=== PATIENT | male | born 1950 | race Caucasian/White ===

== ENCOUNTER → 2023-09-20 07:53 | Outpatient (REF) | payer MEDICARE, SELFPAY | LOC: HWLAB 07:53 | PROVIDERS: ATTENDING PHYSICIAN Family Medicine | DX: R19.7 Diarrhea, unspecified (principal); R10.9 Unspecified abdominal pain | CPT/HCPCS: 87045; 87046; 87324; 87328; 87329; 87427; 87449 ==

== ENCOUNTER → 2024-06-25 07:33 | Outpatient (REF) | payer MEDICARE, SELFPAY ==
[2024-06-25 10:21] LABS: % Basophils 0.9 % (0-2); % Eosinophils 0.4 % (0-6); % Immature Granulocytes 0.2 % (0-0.5); % Lymphocytes 32.7 % (20.5-51.1); % Monocytes 14.1 % (1.7-9.3); % Neutrophils 51.7 % (42.2-75.2); Absolute Lymphocytes 1.5 10^3/uL (1.2-3.4); Absolute Monocytes 0.6 10^3/uL (0.1-0.6); Absolute Neutrophils 2.3 10^3/uL (1.4-6.5); Hematocrit 50.3 % (39.0-52.0); Hemoglobin 16.7 g/dL (13.0-18.0); Mean Corp Hgb Conc. 33.2 g/dL (33.0-37.0); Mean Corpuscular Hgb 32.9 pg (27.0-31.0); Mean Corpuscular Volume 99.2 fL (80.0-94.0); Mean Platelet Volume 13.1 fL (7.4-10.4); Nucleated Red Blood Cells % 0 % (-); Platelet Count 68 10^3/uL (130-400); Red Blood Cell Count 5.07 10^6/uL (4.70-6.10); White Blood Cell Count 4.5 10^3/uL (4.8-10.8)
[2024-06-25 16:13] LABS: ALT (SGPT) 33 U/L (0-50); AST (SGOT) 52 U/L (17-59); Albumin 3.7 g/dl (3.5-5.0); Alkaline Phosphatase 134 U/L (38-126); Blood Urea Nitrogen 22 mg/dl (9-20); Calcium 8.6 mg/dl (8.4-10.2); Carbon Dioxide 28 mmol/L (22-30); Chloride 103 mmol/L (98-107); Glucose 79 mg/dl (70-99); HDL Cholesterol 75 mg/dl; LDL Cholesterol, Calculated 50 mg/dl; Potassium 4.3 mmol/L (3.5-5.1); Sodium 139 mmol/L (135-145); Total Cholesterol 139 mg/dl (50-199); Total Protein 7.3 g/dl (6.3-8.2); Triglyceride 71 mg/dl (10-149); Very Low Density Lipoprotein 14 mg/dl (0-30); eGFR > 60.00
== END ==
LOC: HWLAB 07:33
PROVIDERS: ATTENDING PHYSICIAN Internal Medicine Cardiovascular Disease; FAMILY PHYSICIAN Family Medicine
DX: I48.0 Paroxysmal atrial fibrillation (principal)
CPT/HCPCS: 36415; 80053; 80061; 85025

== ENCOUNTER 2024-07-22 18:23 | Inpatient (IN) | payer MEDICARE, SELFPAY ==
[2024-07-22] VITALS (40 sets, daily range): BP systolic 99–127; BP diastolic 69–96; BMI 20.1
[2024-07-22 14:10] LABS: Hematocrit 49.4 % (39.0-52.0); Hemoglobin 16.7 g/dL (13.0-18.0); Mean Corp Hgb Conc. 33.8 g/dL (33.0-37.0); Mean Corpuscular Hgb 31.6 pg (27.0-31.0); Mean Corpuscular Volume 93.6 fL (80.0-94.0); Mean Platelet Volume 12.1 fL (7.4-10.4); Platelet Count 93 10^3/uL (130-400); Red Blood Cell Count 5.28 10^6/uL (4.70-6.10); White Blood Cell Count 5.1 10^3/uL (4.8-10.8)
[2024-07-22 14:21] LABS: % Basophils 0.4 % (0-2); % Immature Granulocytes 0.4 % (0-0.5); % Lymphocytes 13.8 % (20.5-51.1); % Monocytes 14.2 % (1.7-9.3); % Neutrophils 71.2 % (42.2-75.2); Absolute Lymphocytes 0.7 10^3/uL (1.2-3.4); Absolute Monocytes 0.7 10^3/uL (0.1-0.6); Absolute Neutrophils 3.7 10^3/uL (1.4-6.5); Nucleated Red Blood Cells % 0 % (-)
[2024-07-22 14:22] LABS: ALT (SGPT) 33 U/L (0-50); AST (SGOT) 59 U/L (17-59); Albumin 3.4 g/dl (3.5-5.0); Alkaline Phosphatase 140 U/L (38-126); Blood Urea Nitrogen 44 mg/dl (9-20); Carbon Dioxide 21 mmol/L (22-30); Chloride 101 mmol/L (98-107); Glucose 102 mg/dl (70-99); INR 1.89; PT 21.9 Sec (11.4-14.6); Potassium 5.4 mmol/L (3.5-5.1); Sodium 131 mmol/L (135-145); Total Bilirubin 1.1 mg/dl (0.2-1.3); Total Protein 7.4 g/dl (6.3-8.2); eGFR > 60.00
--- NOTE | 2024-07-22 14:46 | EDRN ---
the pt was brought back to ED Bed #8 from the waiting room, the pt was placed on the monitor and was found to be tacycardic in the 120-150's, the pts Sp02 was 67% on RA, this RN placed the pt on 6L NC then a non rebreather and notified Dr. Watkins who
came to the pts bedside
[2024-07-22] MEDS: CARDIZEM 5 MG IV (15:04)
--- NOTE | 2024-07-22 15:04 | ED.GENMED ---
History of Present Illness
General
Chief Complaint: Weakness
Source: patient and family
Time Seen by Provider: 07/22/24 14:59
History of Present Illness
History of Present Illness:
This patient is a 73-year-old male presents emergency department with progressive symptoms over the last 4 to 6 weeks. He is generally noncompliant with seeing his doctor, and specifically has not seen a doctor regarding his lupus in a very long
time. He describes increasing fatigue, sleeping all day, anorexia and nonbloody diarrhea. He denies fever or chills but does note a productive cough. He denies chest pain or pressure, palpitations. He has had increasing lower extremity edema for
about a month. He denies headache, dizziness, sore throat, rhinorrhea, abdominal pain, or other complaints. Daughter states she wanted to bring him to the hospital yesterday but he declined.
Past History
Past History
ED Past Medical History: Arrthythmia (afib), CAD, HTN, Hypercholesterolemia, Valvular disease (as) and Other (lupus)
ED Past Surgical History: Other
Social History
Tobacco: Other (Cigars)
Alcohol: None
Drug: None and Other
Living: alone
Family History
Family History: Other
Phy Exam
Physical Exam
Physical Exam:
GENERAL: Alert , in mild respiratory distress distress
EYE: pupils equal and reactive, conjunctiva pink
NECK: Supple, no significant adenopathy.
ENT: o/p clr, mm slightly dry
CARDIAC: Irregularly irregular
LUNGS: Noted breath sounds bilaterally, moderate respiratory distress, no wheezes/rales/rhonchi, slightly decreased breath sounds on the right
ABDOMEN: Soft, without focal tenderness, no r/g, no cvat
NEUROLOGICAL: Alert and oriented, no focal neuro deficits
SKIN: Warm and dry, skin intact.
MUSCULOSKELETAL: 2+ bilateral lower extremity edema, well perfused.
PSYCH: Normal and appropriate interaction.
Course
Orders/Labs/Results
Orders:
Orders
07/22/24 13:53
Complete Blood Count/With Diff Urgent
Comprehensive Metabolic Panel Urgent
Lyme Progressive Urgent
PT/INR [Prothrombin Time] Urgent
07/22/24 14:45
EKG [Electrocardiogram (*1)] Urgent
Reason for Study: Shortness of Breath
EKG- Treatment ONCE
07/22/24 14:48
Diltiazem HCl [Cardizem] 25 mg .ROUTE .STK-MED ONE
Nicardipine 40 mg/200 ml [Cardene] 40 mg in 200 ml .ROUTE .STK-MED
07/22/24 14:55
Diltiazem 125 mg/125 ml Nss [Cardizem] 125 mg in 125 ml .ROUTE .STK-MED
07/22/24 15:01
Diltiazem 125 mg/125 ml Nss [Cardizem] 125 mg in 125 ml IV NOW
Initial dose in mg/hr, then titrate:: 5
Titrate to keep:: Heart rate 80-100 bpm
Titrate by mg/hr:: 5 mg/hr
Frequency of titrations (minutes):: 15
Maximum dose in mg/hr:: 15
Diltiazem HCl [Cardizem] 5 mg IV NOW STA
07/22/24 15:04
Cardiac Monitoring- Treatment ONCE
CR Chest Portable - 1 View Urgent
Comment:
Reason For Exam: hypoxia, hx lupus
Reason Study Needs to be Portable: Patient Unstable
07/22/24 15:11
Dexamethasone Sod Phosphate [Decadron] 10 mg IV NOW STA
07/22/24 15:30
ABG [Arterial Blood Gas] Urgent
%Oxygen/Room Air: 87% on 6L NC
07/22/24 15:35
Magnesium Urgent
NT-proBNP Urgent
Troponin I Urgent
07/22/24 15:39
Furosemide [Lasix] 40 mg IV NOW STA
07/22/24 16:35
Aspirin 325 mg PO NOW STA
Metoprolol [Lopressor] 5 mg IV NOW STA
07/22/24 16:48
Aspirin 325 mg .ROUTE .STK-MED ONE
07/22/24 17:26
Admit/Transfer Patient As Directed
Co-Sign Provider:
Level of Care: Inpatient admission
Assign to:: IMU- Intermediate Care
Physician / Group: Dario
Diagnosis: Hypoxia, CHF, Pleural Effusion, Atrial Flutter
Reason for Hospitalization: high flow, Cardizem drip
Expected length of stay greater than two midnights?: Yes
ELOS- Estimated Length of Stay in days: 3
I certify the patient meets the requirements for IP care: Yes
07/22/24 17:27
PRN Pain Medication Management As Directed
May give lesser potent ordered pain med per pt: Yes
preference::
Protocol:: Medication orders for pain may be administered in a
manner that supports deferring to patient preference
when the pt is:
- Requesting an ordered lesser potent pain medication.
Least to most potent pain medications are defined
as: acetaminophen < NSAID < tramadol < opioids
(morphine, oxycodone, hydromorphone).
- Requesting a lesser dose of the same medication IF
ORDERED.
- Requesting a less intrusive route of administration
if both routes are prescribed by the provider (PO <
IV).
07/22/24 17:36
Amiodarone [Cordarone] 150 mg Dextrose 5%/Water 100 ml [D5w] 100 ml IV NOW
07/22/24 17:38
Add On- LAB Urgent
Tests Added?: magnesium
07/22/24 17:45
Amiodarone [Cordarone] 900 mg DEXTROSE 5% PVC-free BAG [D5W PVC-free BAG] 500 ml IV PER PROTOCOL
Initial Dose in mg/min:: 1
Duration of initial dose (hours):: 6
Subsequent dose in mg/min:: 0.5
Duration of subsequent dose (hours):: 18
Maximum dose in mg/min:: 1
Hold and notify provider if:: Heart rate < 60 BPM or SBP < 90 mmHg or MAP < 60 mmHg
07/22/24 21:49
Troponin I Q6H
07/23/24 00:08
Warfarin [Coumadin] 1 mg PO QPM
07/23/24 00:08
CARDIOLOGY CONSULT Routine
Consulting Provider: Corwin Britt
Was physician already notified: Yes
HF DIETARY CONSULT Routine
HF EDUCATOR CONSULT Routine
Comment:
IRAD CONSULT Routine
Consulting Provider: Joaquín Chang
Was physician already notified: Yes
Reason for Consult/Procedure: Left Thoracentesis
Acknowledgement that appropriate orders are entered: Yes
Activity As Directed
Activity Level: Bedrest
Intake/ Output As Directed
Frequency: Per unit guidelines
Patient Education As Directed
Type: CHF folder
Comment: give on admission. Document in Interdisciplinary Education record
Sleep Apnea Assessment by RN As Directed
Comment:
Physician Instructions:
Vital Signs As Directed
Frequency: Other
Additional Instructions:: Q12 or per unit guidelines if more frequent.
Weight As Directed
Frequency: Daily
Type of Scale: Standing Scale
Comment: Daily morning weight. If unable to stand, use balanced bed scale.
Weight As Directed
Frequency: Once
Type of Scale: Standing Scale
Comment: Upon Admission. If unable to stand, use balanced bed scale.
IRAD Cytology Routine
Date Specimen was Collected: 07/23/24
Time Specimen was Collected: 09:10
Source: Pleural Fluid, Left
Clinical Impression: CHF
History of Malignancy: none
History of Radiation / Chemotherapy: none
Submitting Physician: marta Qureshi PA-C
O2 Therapy [RESP] Routine
Titrate/Wean O2 to maintain O2 sat greater than (%): 90
Pulse Ox/cont/shift [RESP] Routine
Quantity: 1
Special Instructions: Daily pulse oximetry at rest. If greater than 92% at rest also obtain pulse oximetry
while ambulating as tolerated.
07/23/24 04:19
Basic Metabolic Panel IN AM
Cardiovascular Evaluation IN AM
Complete Blood Count/No Diff IN AM
LDH IN AM
Magnesium IN AM
Prothrombin Time IN AM
TSH Reflex To Free T4 IN AM
Total Protein IN AM
Troponin I Q6H
07/23/24 06:00
Echo 2D MMode Color/Doppler IN AM
Reason for Study: heart failure
Cholesterol Lowering
At Your Request: Full Participation
Cholesterol Lowering: Sodium, 2 Gram
07/23/24 08:00
Furosemide [Lasix] 40 mg IV DAILY
Metoprolol Xl [Toprol Xl] 100 mg PO DAILY
07/23/24 09:14
Body Fluid Amylase Routine
Fluid Source: Pleural
Date Specimen was Collected: 07/23/24
Time Specimen was Collected: 09:10
Body Fluid Cell Count Routine
What is the Body Fluid: pleural fluid
Date Specimen was Collected: 07/23/24
Time Specimen was Collected: 09:10
Comment: post procedure
Body Fluid Glucose Routine
Fluid Source: Pleural
Date Specimen was Collected: 07/23/24
Time Specimen was Collected: 09:10
Body Fluid LDH Routine
Fluid Source: Pleural
Date Specimen was Collected: 07/23/24
Time Specimen was Collected: 09:10
Body Fluid Protein Routine
Fluid Source: Pleural
Date Specimen was Collected: 07/23/24
Time Specimen was Collected: 09:10
Body Fluid Triglycerides Routine
Fluid Source: Pleural
Date Specimen was Collected: 07/23/24
Time Specimen was Collected: 09:10
Body Fluid pH Routine
Fluid Source: Pleural
Date Specimen was Collected: 07/23/24
Time Specimen was Collected: 09:10
Fluid Culture with Gram Stain Routine
BETTE Source: Pleural Fluid
Specimen Description:
Date Specimen was Collected: 07/23/24
Time Specimen was Collected: 09:10
Comment: post procedure
07/24/24 06:04
Prothrombin Time IN AM
07/27/24 06:05
Prothrombin Time IN AM
Abnormal Lab Results
07/22/24 07/22/24 07/22/24
13:53 15:30 15:35
MCH 31.6 H pg
(27.0-31.0)
Plt Count 93 L 10^3/uL
(130-400)
MPV 12.1 H fL
(7.4-10.4)
Absolute Lymphs (auto) 0.7 L 10^3/uL
(1.2-3.4)
Absolute Monos (auto) 0.7 H 10^3/uL
(0.1-0.6)
Lymphocytes % 13.8 L %
(20.5-51.1)
Monocytes % 14.2 H %
(1.7-9.3)
PT 21.9 H Sec
(11.4-14.6)
ABG O2 Sat (Measured) 98.2 H %
(94-98)
Sodium 131 L mmol/L
(135-145)
Potassium 5.4 H mmol/L
(3.5-5.1)
Carbon Dioxide 21 L mmol/L
(22-30)
BUN 44 H mg/dl
(9-20)
Glucose 102 H mg/dl
(70-99)
Alkaline Phosphatase 140 H U/L
(38-126)
Troponin I 0.099 H* ng/ml
Albumin 3.4 L g/dl
(3.5-5.0)
07/22/24 13:53
07/22/24 13:53
Vital Signs
Initial and Last Documented VS:
Initial Vital Signs
Temp Pulse Resp BP Pulse Ox
97.7 F 56 18 121/69 95
07/22/24 13:39 07/22/24 13:39 07/22/24 13:39 07/22/24 13:39 07/22/24 13:39
Last Documented Vital Signs
Temp Pulse Resp BP Pulse Ox
97.9 F 64 16 102/70 96
07/30/24 15:57 07/30/24 16:12 07/30/24 15:57 07/30/24 16:12 07/30/24 15:57
*Critical Care Note
Total Time (30-74mins, 75-104mins- exclusive of procedures): Not Applicable
Update Note
Update Note:
Patient presents to the Emergency Department with ____fatigue, anorexia, diarrhea, dyspnea
Number and Complexity of Problems Addressed at the Encounter
� Chronic conditions affecting care:
� Acute Exacerbation and/or Progression of Chronic Illness:
� Differential Diagnosis includes: But not limited to A-fib, heart failure, ACS, carcinoma, etc. etc.
Amount and/or Complexity of Data to be Reviewed and Analyzed
� I performed an independent evaluation of and my interpretation is:
EKG: Read by me, a flutter with RVR, no acute ischemia
CT:
Xrays: New moderate left pleural effusion, mild right pleural effusion, mild pulmonary edema
Laboratory Studies: Reviewed by me, mild thrombocytopenia which is relatively unchanged, prerenal azotemia with normal kidney function, mild hyperkalemia
Other:
� Review of other/old records reveals: Patient was in the hospital December 2014, had an aortic valve replacement at that time. Noted to have a history of heart failure, hypertension, A-fib, alcoholic cardiomyopathy with an EF of
40 to 45%
� Clinical information was obtained by an independent historian: Daughter who is bedside
� Prescriptions/Medications Considered but not given:
� Further testing considered but not performed: Consideration for CT to rule out PE, patient is not fully anticoagulated however symptoms are overwhelmingly convincingly related to heart failure/A-fib
Risk of Complications and/or Morbidity or Mortality of Patient Management
� Social determinants of health affecting care:
� Discussion with other providers (PCP, Hospitalists, Consultants, etc):
� Escalation of care including admission/observation vs risk of discharge considered: Several reassessments of patient, he is resting comfortably, lucid, awake and alert, no respiratory distress on high flow, pulse ox 97%. He
has been updated regarding our findings here and plan of care. [place] text to hospitalist for admission. Of ntoe on cardizem gtt, 15 mg/hr, still hr 120's...will give dose lopressor.
ED Attending Note
-
Portions of this chart may have been created with voice recognition software.� Occasional wrong word or��sound alike� substitutions may have occurred due to the inherent limitations of voice recognition software.
Discharge Plan
Departure
Patient Disposition: Admit
Date of Disposition: 07/22/24
Time of Disposition: 16:39
Presentation/result/management discussed w/ accepting MD/DO: Hospitalist
Discharge Problem:
Atrial fibrillation by electrocardiography, Heart failure, Pleural effusion, Hypoxia
Interventions
Interventions:
*Risk Screen - Suicide Last Done: 07/22/24 13:39
*General Assessment Last Done: 07/22/24 13:39
*Neglect/Abuse Screening Last Done: 07/22/24 15:10
*ED- Fall Risk Assessment Last Done: 07/22/24 15:10
*ED COVID-19 Vaccine History Last Done: 07/22/24 13:39
*Nursing Disposition Last Done: 07/23/24 03:19
ED- Cardiac Assessment Last Done: 07/23/24 00:00
ED- Neurological Assessment Last Done: 07/22/24 19:39
ED- Pulmonary Assessment Last Done: 07/22/24 19:39
Discharge Date and Time
Discharge Date/Time: 07/23/24 03:20
[2024-07-22] MEDS: CARDIZEM 125 IV (15:05)
--- NOTE | 2024-07-22 15:09 | EDRN ---
respiratory currently at the pts bedside
--- NOTE | 2024-07-22 15:16 | EDRN ---
respiratory currently at the pts bedside
[2024-07-22] MEDS: DECADRON 10 MG IV (15:31)
[2024-07-22 15:40] LABS: B.E. -1.3 mmol/L; HCO3 22.8 mmol/L (21-28); O2 Saturation % 98.2 % (94-98); PCO2 36 mmHg (35-48); PO2 90 mmHg (83-108); pH 7.41 (7.35-7.45)
[2024-07-22 15:57] LABS: Magnesium 2.1 mg/dl (1.6-2.3)
[2024-07-22 16:07] LABS: NT-proBNP 8150 pg/ml
[2024-07-22] MEDS: LASIX 40 MG IV (16:22)
[2024-07-22 16:33] LABS: Troponin I 0.099 ng/ml
[2024-07-22] MEDS: ASPIRIN 325 MG PO (16:49)
[2024-07-22] MEDS: LOPRESSOR 5 MG IV (16:49)
--- NOTE | 2024-07-22 16:55 | HPS.HSE ---
Family Physician
-
Family Physician: Corwin Garay
Chief Complaint
-
Shortness of Breath and Lower Extremity Edema
History of Present Illness
Patient is a 73 y/o male past medical history of s/p AVR, CHF, A-fib, HTN who presents with increasing lower extremity edema and shortness of breath. Patient reports ankle swelling since last summer, but reports over the last few weeks swelling
has crept to the knees. He reports increasing dyspnea on exertion. He reports very poor appetite, weakness and fatigue. He denies chest pain or palpitations. He does not weight himself on a regular basis. He denies fevers.
Medical History
Past Medical History
Past Medical History: Reports Other
Additional Past Medical History:
Congestive Heart Failure
Cardiomegaly
Aortic Stenosis s/p Bioprosthetic Aortic Valve Replacement
Paroxysmal Atrial Fibrillation
Essential Hypertension
Hyperlipidemia
Lupus
Anxiety
Past Surgical History: Reports Other
Additional Past Surgical History:
Aortic Valve Replacement
Bilateral Knee Arthroscopy
Colon Resection
Social History
Tobacco: Smoker (Quit cigarettes over 20 years ago. Smoking 1-2 cigars nightly since quitting cigarettes)
Alcohol: Daily (~2 oz bourbon nightly )
Family History
Family History: Not pertinent
Allergies / Home Medications
Allergies reflects when Allergies were last updated in [facility].
Home Medications with original date entered in [facility]
Allergy/Medication List:
Allergies
Allergy/AdvReac Type Severity Reaction Status Date / Time
gluten Allergy CONSTIPATIO Verified 07/22/24 17:40
N
milk [Milk] Allergy Gas Verified 07/22/24 17:40
rivaroxaban [From Xarelto] Allergy excessive Verified 07/22/24 13:44
bleeding,
'funny
feeling'
wheat Allergy CONSTIPATIO Verified 07/22/24 17:40
N
Home Medications
metoprolol succinate 100 mg tablet,extended release 24 hr 100 mg PO DAILY 11/24/14
amlodipine 5 mg tablet (Norvasc) 5 mg PO BID 07/22/24
lisinopril 10 mg tablet 10 mg PO QPM 07/22/24
lisinopril 5 mg tablet 5 mg PO DAILY 07/22/24
warfarin 4 mg tablet (Jantoven) 1 mg PO QPM 07/22/24
Review of Systems
-
A 12 point ROS was completed and negative except as noted: Yes
Constitutional: Denies Fever or Chills
Respiratory: Reports Trouble Breathing
Cardiac: Denies Chest Pain or Palpitations
Physical Exam
Vital Signs
Vital Signs
Temp Pulse Resp BP Pulse Ox
97.7 F 126 28 123/90 96
07/22/24 13:39 07/22/24 16:49 07/22/24 15:02 07/22/24 16:49 07/22/24 15:38
Physical Exam
General: Comfortable and Conversant
HEENT: Anicteric, Moist mucous membranes and Oxygen (High Flow)
Respiratory: Rales (Scattered) and Decreased Breath Sounds (Bilateral Bases)
Cardiac: S1/S2, Irregular Rhythm and Tachycardia
GI: Soft and Non Tender
Rectal: Deferred by Provider
Genito-urinary: Clear Urine
Musculoskeletal: No Clubbing, No Cyanosis and Other (+3 pitting edema bilateral lower extremity; +1 edema left hand)
Skin: Warm and Dry
Neuro: Awake, Alert, Oriented and Nonfocal/grossly intact
Psych: Calm
Laboratory Results
-
07/22/24 13:53
07/22/24 13:53
Laboratory Results
PT 21.9 Sec (11.4-14.6) H 07/22/24 13:53
INR 1.89 07/22/24 13:53
pH 7.41 (7.35-7.45) 07/22/24 15:30
pCO2 36 mmHg (35-48) 07/22/24 15:30
pO2 90 mmHg (83-108) 07/22/24 15:30
HCO3 22.8 mmol/L (21-28) 07/22/24 15:30
Total Bilirubin 1.1 mg/dl (0.2-1.3) 07/22/24 13:53
AST 59 U/L (17-59) 07/22/24 13:53
ALT 33 U/L (0-50) 07/22/24 13:53
Alkaline Phosphatase 140 U/L (38-126) H 07/22/24 13:53
Troponin I 0.099 ng/ml H* 07/22/24 15:35
Data Reviewed
-
Diagnostic Radiology: Report Reviewed by me
Lab Data: Labs Reviewed by me
Impression/Plan
-
Acute Hypoxic Respiratory Failure secondary to CHF and Left Pleural Effusion
-Admit to IMU
-Continue high flow oxygen
Acute Heart Failure, unknown type
-Echo 2018: LV EF 55-60%
-Consult Cardiology
-Check Echo
-Continue Lasix 40mg IV Daily
-Monitor Is&Os and Daily Weights
Atrial Fibrillation / Flutter with Rapid Ventricular Response
-Rate remains in the 120s despite max Cardizem drip
-Start Amiodarone drip
-Continue Cardizem drip
-Continue metoprolol
-Continue Coumadin for anticoagulation
Elevated Troponin, likely non-ischemic myocardial injury due to hypoxia, heart failure and tachycardia
-Continue to trend
Left Pleural Effusion
-Consult IR for thoracentesis
Hyperkalemia
-Suspect will improve with diuretics
-Hold lisinopril
-Recheck in AM
Essential Hypertension
-Continue Metoprolol
-Hold lisinopril and amlodipine
Hx Lupus
DVT proph: Coumadin
Code Status: Limited DNR - No defibrillation or chest compressions - OK for intubation only
--- NOTE | 2024-07-22 18:05 | W.PN.UPDATE ---
Update Note
Progress Note Update
This is an addendum to the H&P written by Josette West on 07/22/2024. Patient seen and examined independently with PA.
73-year-old male past medical history of aortic stenosis status post AVR, heart failure, A-fib on Coumadin, hypertension, lupus, presenting with shortness of breath with exertion, lower extremity edema, fatigue weakness and poor appetite. No cough
or chest pain or fever.
Heart rate 120s. Patient requiring high flow oxygen.
EKG shows atrial flutter with variable AV block. Cardiac BNP of 8000. Troponin of 0.099. Chest x-ray shows moderate left pleural effusion small right pleural effusion.
Presentation consistent with acute CHF exacerbation likely secondary to atrial flutter with RVR.
40 IV Lasix daily. Patient on Cardizem drip. Still heart rate in 120s. Amiodarone drip to be started. Cardiology following. Hold amlodipine and lisinopril.
[2024-07-22] MEDS: CORDARONE 103 MG IV (18:07)
[2024-07-22] MEDS: CORDARONE 518 MG IV (18:20)
[2024-07-22 22:27] LABS: Troponin I 0.084 ng/ml
[2024-07-23] VITALS (33 sets, daily range): BP systolic 85–125; BP diastolic 59–94; PULSE 118; O2SAT 92; BMI 25.8; BMI 20.1
[2024-07-23] MEDS: COUMADIN 1 MG PO (01:09)
[2024-07-23 04:39] LABS: INR 1.63; PT 19.6 Sec (11.4-14.6)
[2024-07-23 04:55] LABS: Blood Urea Nitrogen 50 mg/dl (9-20); Calcium 8.5 mg/dl (8.4-10.2); Carbon Dioxide 21 mmol/L (22-30); Chloride 102 mmol/L (98-107); Estimated Creatinine Clearance 54 ml/min; Glucose 190 mg/dl (70-99); HDL Cholesterol 64 mg/dl; LDH 352 U/L (120-246); LDL Cholesterol, Calculated 33 mg/dl; Potassium 5.5 mmol/L (3.5-5.1); Sodium 130 mmol/L (135-145); Total Cholesterol 115 mg/dl (50-199); Total Protein 6.7 g/dl (6.3-8.2); Triglyceride 90 mg/dl (10-149); Very Low Density Lipoprotein 18 mg/dl (0-30); eGFR > 60.00
[2024-07-23 04:58] LABS: Hematocrit 46.2 % (39.0-52.0); Hemoglobin 15.8 g/dL (13.0-18.0); Mean Corp Hgb Conc. 34.2 g/dL (33.0-37.0); Mean Corpuscular Hgb 31.3 pg (27.0-31.0); Mean Corpuscular Volume 91.5 fL (80.0-94.0); Mean Platelet Volume 12.8 fL (7.4-10.4); Platelet Count 95 10^3/uL (130-400); Red Blood Cell Count 5.05 10^6/uL (4.70-6.10); Red Cell Dist. Width 13.8 % (11.5-14.5)
[2024-07-23 05:14] LABS: Troponin I 0.069 ng/ml
[2024-07-23 05:21] LABS: TSH Reflex To Free T4 1.71 uIU/ml (0.47-4.68)
--- NOTE | 2024-07-23 05:37 | PTCARENOTE ---
Admitted pt overnight. aaox3. Remains on amio gtt, ST 120's. Remains maxed on HFNC 64I145% pulse ox anywhere from 80-95%. SOB at rest/exertion. Pt arguing with staff about pulse ox reading, when its reading low at 80% & pt SOB pt states 'its the
sticker, i can make it go to 96% no problem' education provided, pt not willing to listen. No skin issues. BP stable. Denies pain. Will continue to monitor.
--- NOTE | 2024-07-23 08:22 | CON.CAR ---
Addendum entered and electronically signed by Doyle Macias MD 07/23/24 17:57:
After discussion, cardioversion is on hold for tomorrow. Daughter informed.
Addendum entered and electronically signed by Doyle Macias MD 07/23/24 09:41:
73-year-old man admitted with heart failure, unknown EF (previously normal) and atrial flutter probably of 1 months duration. Family called our office 1 to 2 days ago inquiring about hospice.
PMH: PAF, alcohol use, bioprosthetic aortic valve 2014, history of ICD with extraction after 42 shocks for atrial fibrillation, previous amiodarone use, compression fractures, lupus, thrombocytopenia
Allergies: Xarelto
Current medications: IV furosemide, metoprolol ER 100 mg a day, warfarin, IV heparin just added, IV amiodarone
85/59, pulse 119, respiratory rate 21, afebrile, sats 94%, feels much better after thoracentesis for 1.2 L from left chest, blood pressure up to 120 systolic, heart rate still about 120, lungs are relatively clear, neck veins markedly elevated,
tachycardic regular, no obvious murmurs, abdomen benign, extremities 1+ to 2+ edema
Chest x-ray cardiomegaly left pleural effusion, heart failure
ECG: Atrial flutter with 2-1 conduction, Low voltage, septal OR
White count 2, platelets 95,000, hemoglobin 15.8, sodium 130, potassium 5.5, CO2 21, BUN and creatinine 50 and 1.1, troponin 0.069, proBNP 8150, TSH 1.71
Impression:
Atrial flutter with rapid ventricular response, likely 1+ month in duration
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
History of bioprosthetic AVR
Status post extraction of ICD for inappropriate discharges related to atrial fibrillation
Lupus
Thrombocytopenia
Hypertension
Alcohol and tobacco use
Plan:
He presents with heart failure, I suspect with a reduced EF related to tachycardia mediated cardiomyopathy. He has been in atrial flutter for what is likely greater than 1 month.
He appears much more comfortable after thoracentesis.
Will await echocardiography.
INR was 1.89, we will review prior INRs. INR has dropped further, we will start heparin. If last INR was therapeutic I would be willing to consider cardioversion without transesophageal echo.
Continue amiodarone for now, once sinus rhythm is reestablished we can determine whether PVI should be considered.
Would consider transition to Eliquis from warfarin.
Once stable we will maximize GDMT. Lisinopril currently on hold. He is written to get metoprolol ER. Will continue IV amiodarone and heparin for now. With addition of amiodarone we will need to watch INR closely dose warfarin daily.
Tentatively plan for cardioversion in a.m.
Original Note:
Consultation
Consultation Request
Date/Time Consultation Performed: 07/23/24
Requesting Provider: Dr. Logan
Performing Provider: Bisi Kim PA-C for Dr. BLAS Macias
Reason for Consultation: CHF, afib
Medical History
-
Chief Complaint: SOB, LE edema
History of Present Illness:
Patient is a 73-year-old male with past medical history of heart failure with reduced EF, nonischemic cardiomyopathy in setting of severe aortic stenosis/rapid afib and underwent ICD 2010. He had 42 ICD shocks for rapid atrial fibrillation and
subsequently underwent ICD system extraction in 2011. He underwent bioprosthetic AVR in 2014. He was diagnosed with lupus in 2016 and is chronically on Plaquenil. He has history of nosebleeds on Xarelto, and has been maintained on Coumadin
followed by [facility] Coumadin clinic. Patient presented to [facility] emergency room due to progressive shortness of breath and lower extremity edema noted over the last month. He also reports generalized fatigue. He is not on a water pill as
an outpatient. proBNP elevated at 8150 and chest x-ray with evidence of pleural effusions consistent with heart failure. On arrival is noted to be in atrial flutter with RVR. He states in past he has been able to tell when he is in afib, however
does not currently feel his typical symptoms. He was initially started on IV cardizem, however this was stopped due to hypotension and he was transitioned to IV amiodarone. Cardiology consulted for evaluation. Of note he has not gotten his
recommended echocardiogram the last 4 years as an outpatient.
PMH:
Paroxysmal atrial fibrillation
Chronic Coumadin therapy, managed by [facility] Coumadin clinic
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
History of heart failure with reduced EF
Status post ICD placement in 2010, with subsequent 42 ICD shocks for rapid A-fib status post ICD system extraction in 2011
History of bioprosthetic AVR in 2014
Lupus
Chronic thrombocytopenia
Hypertension
Past Medical History
Past Medical History: Other (in HPI)
Social History
Tobacco: Smoker (cigars)
Alcohol: Daily (1 bourbon daily)
Living: Alone
Employment: Retired
Family History
Family History: Other (OR in father, lupus in mother)
Allergies / Home Medications
Allergy/AdvReac Type Severity Reaction Status Date / Time
gluten Allergy CONSTIPATIO Verified 07/22/24 17:40
N
milk [Milk] Allergy Gas Verified 07/22/24 17:40
rivaroxaban [From Xarelto] Allergy excessive Verified 07/22/24 13:44
bleeding,
'funny
feeling'
wheat Allergy CONSTIPATIO Verified 07/22/24 17:40
N
�Medication �Instructions �Recorded �Confirmed �Type
metoprolol succinate 100 mg 100 mg PO DAILY 11/24/14 07/22/24 History
tablet,extended release 24 hr
amlodipine 5 mg tablet (Norvasc) 5 mg PO BID 07/22/24 07/22/24 History
lisinopril 10 mg tablet 10 mg PO QPM 07/22/24 07/22/24 History
lisinopril 5 mg tablet 5 mg PO DAILY 07/22/24 07/22/24 History
warfarin 4 mg tablet (Jantoven) 1 mg PO QPM 07/22/24 07/22/24 History
Review of Systems
-
History Source: Patient
All other systems: Negative unless noted
Physical Exam
Vital Signs
Temp Pulse Resp BP Pulse Ox
98.0 F 119 21 85/59 94
07/23/24 07:38 07/23/24 06:00 07/23/24 06:00 07/23/24 06:00 07/23/24 07:57
Lab Results
07/23/24 04:19
07/23/24 04:19
Troponin I 0.069 ng/ml H* 07/23/24 04:19
Dgd-O-Pecfmlgskfq Pept 8150 pg/ml 07/22/24 15:35
Physical Exam
General: No Apparent Distress and Other (on high flow O2)
HEENT: Normocephalic, Anicteric and Moist Mucous Membranes
Respiratory: Other (decreased BS B/L bases)
Cardiac: S1/S2 and Irregular Rhythm
GI: Soft, Non Tender, Non Distended and Normal Bowel Sounds
Musculoskeletal: No Clubbing, No Cyanosis and Edema (2+ of B/L LE)
Skin: Warm and Dry
Neuro: AO x 3
Impression / Plan
-
Primary Academic Hospitalist: Dr. Bella
Assessment:
Presentation with SOB, LE edema
Acute hypoxic respiratory failure, currently on high flow O2
Acute on chronic HF, unknown type
B/L pleural effusions by CXR
Typical atrial flutter with RVR
Subtherapeutic INR
Hyperkalemia
Elevated troponin
PVCs
Paroxysmal atrial fibrillation
Chronic Coumadin therapy, managed by [facility] Coumadin clinic
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
History of heart failure with reduced EF
Status post ICD placement in 2010, with subsequent 42 ICD shocks for rapid A-fib status post ICD system extraction in 2011
History of bioprosthetic AVR in 2014
Lupus
Chronic thrombocytopenia
Hypertension
Echo 2010: EF 10%, global hypokinesis, mild to moderate MR, severe with mild to moderate AR, moderate TR, moderate pulmonary hypertension
Echo 02/2015: EF 45 to 50%, moderate concentric LVH, mild MR, #27 bovine aortic with gradient 17/9 mmHg, mild TR PAP 30
ECHO 2018: EF 55 to 60%, no regional wall motion abnormalities, mild MR, #27 bovine prosthetic aortic valve replacement with peak/mean gradients of 12/6 mmHg, mild to moderate TR, PAP 25 to 30 mmHg
Plan:
-Patient presents with SOB and LE edema.
-found to be in what appears to be aflutter with RVR. currently on IV amiodarone gtt as also with relative hypotension. OP toprol being held due to hold parameters (low BP).
-given subtherapeutic INR on arrival, will start IV heparin gtt. he had been on Xarelto in the past, however this had caused epistaxis so was transition to Coumadin. Appears he had been on 2.5 mg the last several weeks until recently in setting of
lupus flare and dose was decreased further to 1mg daily due to poor appetite. INR today 1.63. by review of outpatient records, otherwise INRs have been therapeutic over the last month.
-may need to consider addition of neosynephrine with IV cardizem as HRs remain in 120s on review of tele.
-check echo
-proBNP 8150. continue IV lasix 40mg daily. was not on diuretics prior to admission.
-currently on high flow O2, wean as able
-follow hyperkalemia with diuresis.
-hold OP lisinopril and norvasc with hypotension and hyperK.
-planned for thoracentesis today due to pleural effusions noted by echo
-CHF education
-trop peaked at 0.099 and downtrending. no CP.
-may need to consider for FABBY/CV this admission
-of note, review of office correspondence notes there was daughter had called our office to discuss transition to hospice as patient was feeling poorly and refusing to go to the hospital. he is limited DNR. goals of care to be addressed this
admission.
-he is very restless at times stating 'I need to move'
-d/w nursing
Data Reviewed
-
EKG: Tracing Personally Visualized and interpreted
Radiology: Report Reviewed by me
Medical Tests (Nuc Med, Echo etc): Report Reviewed by me
Labs: Labs Reviewed by me
Old Records: Reviewed
--- NOTE | 2024-07-23 09:29 | W.PN.HOSP.TC ---
Today's Communication/Plan
-
wean HI DALLAS
control HR
echo pending
diuresis
added MSAS protocol
Assessment / Plan
Assessment / Plan
pt is a 73 year old male
Acute Hypoxic Respiratory Failure secondary to CHF and Left Pleural Effusion--on HI DALLAS O2--45L and 80%--s/p 1200 ml removed from thoracentesis, studies sent--wean--diurese
Acute Heart Failure, unknown type--checking ECHO--cont diuresis--daily weights, I/Os
Atrial Fibrillation / Flutter with Rapid Ventricular Response--subtherapuetic INR--cont heparin drip--cont cardizem drip--amio, metoprolol, coumadin
Elevated Troponin, likely non-ischemic myocardial injury due to hypoxia, heart failure and tachycardia-Continue to trend
Hyperkalemia--Suspect will improve with diuretics--Hold lisinopril
Essential Hypertension--Continue Metoprolol--Hold lisinopril and amlodipine
Hx Lupus
DVT proph-- Coumadin
Code Status-- Limited DNR - No defibrillation or chest compressions - OK for intubation only
in cardiology note, daughter asking about hospice--pt feels better with thoracentesis--will defer these discussions to cardiology
Anticipated Discharge: > 48 hours
Subjective/Interval History
-
Date of Service: July 23, 2024
pt feeling much improved after thoracentesis
Objective Data
-
Labs:
Laboratory Results
07/23/24 07/23/24
04:19 08:21
WBC 2.0 L*
Hgb 15.8
Hct 46.2
Plt Count 95 L
PT 19.6 H
INR 1.63
APTT Pending
Sodium 130 L
Potassium 5.5 H
Chloride 102
Carbon Dioxide 21 L
BUN 50 H
Creatinine 1.1
Glucose 190 H
Calcium 8.5
Vital Signs:
max temp for 24 hours
07/23/24
02:42
Temp 98.3 F
Vital Signs
Temp Pulse Resp BP Pulse Ox
98.0 F 119 21 85/59 94
07/23/24 07:38 07/23/24 06:00 07/23/24 06:00 07/23/24 06:00 07/23/24 07:57
I&O
07/22/24 07/23/24 07/24/24
06:59 06:59 06:59
Output Total 500 / 500
Balance -500 / -500
Review of Systems
-
All other systems: Reviewed and negative
Physical Exam
-
General: Well Developed, Well Nourished and No Apparent Distress
HEENT: Normocephalic, Atraumatic and Oxygen (HI DALLAS O2)
Respiratory: Decreased Breath Sounds (left chest)
Cardiac: Irregular Rhythm
GI: Soft, Nontender, Nondistended and Normal Bowel Sounds
Musculoskeletal: No Clubbing and No Cyanosis; Negative No Edema (2+ LE edema bilateral LE)
Neuro: Awake and Alert
Psych: Calm
[2024-07-23 09:46] LABS: Body Fluid pH 7.48
[2024-07-23 09:59] LABS: Cortisol, Random 7.3 ug/dl
[2024-07-23 10:01] LABS: Body Fluid Amylase < 30 U/L; Body Fluid Glucose 150 mg/dl; Body Fluid LDH 105 U/L; Body Fluid Protein 2.2 g/dl; Body Fluid Triglycerides < 30 mg/dl
[2024-07-23 10:17] LABS: Body Fluid Mononuclear 97.8 %; Body Fluid Polymorphonuclear 2.2 %; Body Fluid WBC 1526 /CUMM
[2024-07-23 10:30] LABS: Body Fluid Second Tech EF
[2024-07-23] MEDS: TOPROL XL 100 MG PO (10:30)
[2024-07-23] MEDS: HEPARIN 25000 UNITS/250 ML IV (10:30)
[2024-07-23] MEDS: FOLVITE 1 MG PO (10:30)
[2024-07-23] MEDS: LASIX 40 MG IV (10:30)
[2024-07-23 10:34] LABS: APTT 28.8 Sec (23.4-35.0)
[2024-07-23 10:36] LABS: Alcohol None Detected; GGTP 69 U/L (15-73); Magnesium 2.1 mg/dl (1.6-2.3); Phosphorus 4.3 mg/dl (2.5-4.5)
[2024-07-23 10:43] LABS: B-Hydroxybutyrate 1.04 mmol/L (0.02-0.27)
[2024-07-23] MEDS: COUMADIN 2 MG PO (11:01)
--- NOTE | 2024-07-23 11:59 | PTCARENOTE ---
Addendum entered by Emeli Jacobs 07/23/24 13:35:
Amio gtt d/c per order- see intervention.
Original Note:
Pt's assessment as documented. Aox3, anxious at times but pleasant. MSAS protocol started by provider- see intervention. HR remains elevated in the 120's; pt asymptomatic. Sats in the low to mid 90's on HFNC, weaned as tolerated by RT. IV Amio gtt
infusing, see worklist. Order received to initiate heparin gtt. Baseline PTT obtained. Heparin gtt hung per order- see worklist. Pt and daughter educated on plan of care. Able to make needs known, call vasquez within reach.
[2024-07-23] MEDS: PACERONE 400 MG PO ×3 (13:21→23:17)
[2024-07-23] MEDS: THIAMINE INJECTION 200 MG IV (17:03)
[2024-07-23 17:04] LABS: APTT 44.4 Sec (23.4-35.0)
--- NOTE | 2024-07-23 21:53 | PTCARENOTE ---
Caring for pt overnight. aaox3, aflutter/ST on monitor, remains in 120's bpm. Bp's stable. Denies pain. SOB at rest/ exertion. Remains on HFNC, weaned to 45L 80%. Pt states he feels better after his thoracentesis. Heparin gttt running, will monitor.
Amio PO. Bp's stable. Will continue to monitor.
[2024-07-23] MEDS: MELATONIN 5 MG PO (23:17)
[2024-07-23 23:41] LABS: APTT 72.3 Sec (23.4-35.0)
[2024-07-24] VITALS (13 sets, daily range): BP systolic 101–124; BP diastolic 71–99; PULSE 116; O2SAT 93; BMI 25.5
[2024-07-24] MEDS: THIAMINE INJECTION 200 MG IV ×3 (01:09→16:50)
[2024-07-24 06:31] LABS: INR 1.57
[2024-07-24 06:32] LABS: APTT 29.5 Sec (23.4-35.0); Hematocrit 43.5 % (39.0-52.0); Hemoglobin 15.2 g/dL (13.0-18.0); Mean Corp Hgb Conc. 34.9 g/dL (33.0-37.0); Mean Corpuscular Hgb 30.9 pg (27.0-31.0); Mean Corpuscular Volume 88.4 fL (80.0-94.0); Mean Platelet Volume 13.2 fL (7.4-10.4); Platelet Count 79 10^3/uL (130-400); Red Blood Cell Count 4.92 10^6/uL (4.70-6.10); Red Cell Dist. Width 13.6 % (11.5-14.5); White Blood Cell Count 8.6 10^3/uL (4.8-10.8)
--- NOTE | 2024-07-24 06:40 | PTCARENOTE ---
QUAHOGGER aware of PTT this morning, orders to follow protocol still and increase by 2ml. Heparin gtt now running at 13.5ml/hr.
[2024-07-24 06:56] LABS: ALT (SGPT) 24 U/L (0-50); AST (SGOT) 36 U/L (17-59); Albumin 2.9 g/dl (3.5-5.0); Alkaline Phosphatase 100 U/L (38-126); Blood Urea Nitrogen 59 mg/dl (9-20); Calcium 8.8 mg/dl (8.4-10.2); Carbon Dioxide 21 mmol/L (22-30); Chloride 100 mmol/L (98-107); Estimated Creatinine Clearance 59 ml/min; Glucose 103 mg/dl (70-99); Potassium 4.6 mmol/L (3.5-5.1); Sodium 130 mmol/L (135-145); Total Bilirubin 1.2 mg/dl (0.2-1.3); Total Protein 6.4 g/dl (6.3-8.2); eGFR > 60.00
--- NOTE | 2024-07-24 08:35 | CM ---
Patient seen at bedside in IMU today and yesterday. Patient states that he lives alone, was independent of ADL's and IADL's. Patient stated that his PCP is Dr. Avery and he uses the [facility] in [place] for his pharmacy needs. Patient stated that
he was driving and had no DME at home, no need for VN or SNF in the past. Patient home is a 2 story home. Patient indicated that his daughter would be helpful and was supportive, she lives in [place]. CM will continue to follow for discharge planning
needs.
Plan; SNF vs home with VN; watch for O2 needs and
--- NOTE | 2024-07-24 08:49 | W.PN.HOSP.TC ---
Today's Communication/Plan
-
apprec cards--will defer cath? CT scan PE?, pulm consult?
wean O2
diuresis
Assessment / Plan
Assessment / Plan
pt is a 73 year old male
Acute Hypoxic Respiratory Failure secondary to CHF and Left Pleural Effusion--on HI DALLAS O2--45L and 60%--s/p 1200 ml removed from thoracentesis, studies reveal transudative--wean O2 if able--cont diuresing
Acute Heart Failure, reduced EF-- ECHO with EF 25% and global hypokinesis, dilated and hypokinetic RV, dilated RA, mod to severe tricuspid regurg--cont diuresis--daily weights, I/Os--consideration for cath
Paroxysmal Atrial Fibrillation/Flutter with Rapid Ventricular Response--subtherapeutic INR--cont heparin drip--cont cardizem drip--amio, metoprolol, coumadin
Elevated Troponin, likely non-ischemic myocardial injury due to hypoxia, heart failure and tachycardia--peaked at 0.08--down to 0.069
Hyperkalemia--Suspect will improve with diuretics--Hold lisinopril--resolved
Essential Hypertension--Continue Metoprolol--Holding lisinopril and amlodipine
Hx Lupus
DVT proph-- Coumadin--follow INR--on IV hepaing currently
Code Status-- Limited DNR - No defibrillation or chest compressions - OK for intubation only
in cardiology note, daughter asking about hospice--pt feels better with thoracentesis--will defer these discussions to cardiology
Anticipated Discharge: > 48 hours
Subjective/Interval History
-
Date of Service: July 24, 2024
pt still on HI DALLAS--no c/o
Objective Data
-
Labs:
Laboratory Results
07/23/24 07/24/24 07/24/24
23:19 06:04 12:45
WBC 8.6
Hgb 15.2
Hct 43.5
Plt Count 79 L
PT 19.0 H
INR 1.57
APTT 72.3 H 29.5 Pending
Sodium 130 L
Potassium 4.6
Chloride 100
Carbon Dioxide 21 L
BUN 59 H
Creatinine 1.0
Glucose 103 H
Calcium 8.8
Total Bilirubin 1.2
AST 36
ALT 24
Alkaline Phosphatase 100
Vital Signs:
max temp for 24 hours
07/23/24
19:54
Temp 98.0 F
Vital Signs
Temp Pulse Resp BP Pulse Ox
97.5 F 115 19 101/71 100
07/24/24 04:32 07/24/24 06:00 07/24/24 06:00 07/24/24 06:00 07/24/24 07:21
I&O
07/23/24 07/24/24 07/25/24
06:59 06:59 06:59
Output Total 500 / 500 500 / 500
Balance -500 / -500 -500 / -500
Review of Systems
-
All other systems: Reviewed and negative
Physical Exam
-
General: Well Developed, Well Nourished and No Apparent Distress
HEENT: Normocephalic and Atraumatic
Respiratory: Decreased Breath Sounds; Negative Wheezes or Rhonchi
Cardiac: Irregular Rhythm
GI: Soft, Nontender, Nondistended and Normal Bowel Sounds
Musculoskeletal: No Clubbing and No Cyanosis; Negative No Edema (2+ LE edema bilaterally)
Neuro: Awake
Psych: Calm
[2024-07-24] MEDS: FOLVITE 1 MG PO (09:14)
[2024-07-24] MEDS: PACERONE 400 MG PO ×3 (09:15→21:40)
[2024-07-24] MEDS: TOPROL XL 100 MG PO (09:15)
[2024-07-24] MEDS: LASIX 40 MG IV ×2 (09:15→19:53)
--- NOTE | 2024-07-24 10:35 | W.PN.CARDCBS ---
Today's Communication / Plan
-
increase lasix 40mg IV bid
SL 12.5 mg QD
IV heparin to coumadin
Impression / Plan
-
Primary Swing Tender: Dr. Bella
Assessment:
Presentation with SOB, LE edema
Acute hypoxic respiratory failure, currently on high flow O2
Acute on chronic HF, with newly redduced LVEF
B/L pleural effusions by CXR
Typical atrial flutter with RVR
Subtherapeutic INR
Hyperkalemia
Elevated troponin
PVCs
Paroxysmal atrial fibrillation
Chronic Coumadin therapy, managed by [facility] Coumadin clinic
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
History of heart failure with reduced EF
Status post ICD placement in 2010, with subsequent 42 ICD shocks for rapid A-fib status post ICD system extraction in 2011
History of bioprosthetic AVR in 2014
Lupus
Chronic thrombocytopenia
Hypertension
Echo 2011: EF 10%, global hypokinesis, mild to moderate MR, severe with mild to moderate AR, moderate TR, moderate pulmonary hypertension
Echo 02/2015: EF 45 to 50%, moderate concentric LVH, mild MR, #27 bovine aortic with gradient 17/9 mmHg, mild TR PAP 30
ECHO 2018: EF 55 to 60%, no regional wall motion abnormalities, mild MR, #27 bovine prosthetic aortic valve replacement with peak/mean gradients of 12/6 mmHg, mild to moderate TR, PAP 25 to 30 mmHg
Echo 07/23/24 : Normal left ventricular size with global hypokinesis and septal dyskinesis, EF 25%. Bioprosthetic aortic valve with peak/mean gradients of 19 and 12 mmHg. No aortic regurgitation. Dilated and hypokinetic right ventricle with
dilated right atrium, moderate to severe tricuspid regurgitation and pulmonary artery systolic pressure of 51 mmHg
Plan:
-Patient presents with SOB and LE edema. He has new HFrEF in the setting of rapid atrial flutter.
Diurese given significant volume overload. Lasix increased to 40mg IV BID
s/p thoracentesis 07/23/24 1200cc; pathology/cx pending
GDMT-continue toprol XL. last lisinopril 10 AM. Will look into cost of entresto and consider starting.
Spironolatone 12.5mg QD ordered for today
consider SGLT2i
Follow i/o and weights
Follow electrolytes
HF team consult
-Aflutter with RVR. currently on
Continue amiodarone
Continue toprol XL
Heparin to coumadin (INR 1.99 on admit) given subtherapeutic INR on arrival, IV heparin gtt. he had been on Xarelto in the past, however this had caused epistaxis so was transition to Coumadin.
may need to consider for FABBY/CV this admission
-currently on high flow O2, wean as able
-trop peaked at 0.099 and downtrending. no CP.
-of note, review of office correspondence notes there was daughter had called our office to discuss transition to hospice as patient was feeling poorly and refusing to go to the hospital. he is limited DNR. goals of care to be addressed this
admission.
31min total CCT
Progress Note - Swing Tender
Subjective
Date of Service: July 24, 2024
Oxygen is 'loud'. SOB with edema no other complaint
Objective
Labs:
07/24/24 06:04
07/24/24 06:04
Labs
Hgb 15.2 g/dL (13.0-18.0) 07/24/24 06:04
Hct 43.5 % (39.0-52.0) 07/24/24 06:04
Plt Count 79 10^3/uL (130-400) L 07/24/24 06:04
PT 19.0 Sec (11.4-14.6) H 07/24/24 06:04
INR 1.57 07/24/24 06:04
APTT 29.5 Sec (23.4-35.0) 07/24/24 06:04
Sodium 130 mmol/L (135-145) L 07/24/24 06:04
Potassium 4.6 mmol/L (3.5-5.1) 07/24/24 06:04
BUN 59 mg/dl (9-20) H 07/24/24 06:04
Creatinine 1.0 mg/dL (0.7-1.3) 07/24/24 06:04
Glucose 103 mg/dl (70-99) H 07/24/24 06:04
Troponins
07/22/24 07/22/24 07/23/24
15:35 21:49 04:19
Troponin I 0.099 H* 0.084 H* 0.069 H*
Vital Signs and I&O:
Vital Signs
Temp Pulse Resp BP Pulse Ox
97.9 F 115 19 101/71 100
07/24/24 07:35 07/24/24 06:00 07/24/24 06:00 07/24/24 06:00 07/24/24 07:21
Vital Signs
Temp Pulse Resp BP Pulse Ox
97.9 F 115 19 101/71 100
07/24/24 07:35 07/24/24 06:00 07/24/24 06:00 07/24/24 06:00 07/24/24 07:21
Intake & Output
07/22/24 07/23/24 07/24/24 07/25/24
06:59 06:59 06:59 06:59
Output Total 500 / 500 500 / 500
Balance -500 / -500 -500 / -500
Physical Exam
Physical Exam
General: Well developed, well nourished in NAD.
Heart: tachy regular with distant ht sd
Lungs: cracles b/l . high flow in place
Abdomen: Normal bowel sounds, soft, non-tender, non-distended.
Extremities: No clubbing, cyanosis+2-3 edema bilaterally.
Neuro: Grossly nonfocal, awake, alert and oriented x3.
[2024-07-24] MEDS: ALDACTONE 12.5 MG PO (12:15)
[2024-07-24 13:35] LABS: APTT 107.4 Sec (23.4-35.0)
[2024-07-24] MEDS: HEPARIN 25000 UNITS/250 ML IV (13:37)
--- NOTE | 2024-07-24 15:12 | PTCARENOTE ---
Pt's assessment as documented. Aox3, sleeping intermittently. MSAS protocol done per orders, see intervention. HR remains elevated; pt asymptomatic. Sats in the low to mid 90's on HFNC, weaned as tolerated by RT. Heparin gtt infusing, see worklist.
Pt educated on plan of care. Able to make needs known, call vasquez within reach.
--- NOTE | 2024-07-24 16:05 | PN.CDI ---
CDI
- -
CDI:
Physician Documentation Request
Admit Date: 07/22/24 18:23
Dear Doctor Desmond,
Clinical Indicators:
Patient admitted with acute HFrEF.
07/22 -07/24 Lasix 40 mg IV daily
Sodium trend:
07/22/24 07/23/24 07/24/24
13:53 04:19 06:04
Sodium 131 L 130 L 130 L
Based on the above, could you clarify in the progress notes, the appropriate diagnosis, if significant, that supports the above abnormalities and additional evaluation, monitoring and/or treatment rendered:
Hyponatremia
Abnormal lab values, clinically insignificant
Other
Use of terms such as suspected, likely, concern for, or probable (associated with a specific diagnosis that is being evaluated, monitored, or treated as if it exists) are acceptable and can be coded in the inpatient setting, when documented at the
time of discharge.
Thank you,
Kim Tee RN BSN
CDI Specialist
available via tiger text
Please use your independent medical judgment in providing your response.
[2024-07-24 20:19] LABS: APTT 111.2 Sec (23.4-35.0)
[2024-07-24 21:17] LABS: Urine Albumin Negative (Neg - Trace); Urine Bilirubin Negative (Negative); Urine Character Clear (Clear); Urine Color Yellow; Urine Glucose Negative (Negative); Urine Ketone Negative (Negative); Urine Leukocyte 1+ (Negative); Urine Nitrite Negative (Negative); Urine Occult Blood Negative (Negative); Urine Specific Gravity 1.005 (<1.030); Urine Urobilinogen Negative (Neg - 1+)
[2024-07-24 21:30] LABS: Urine Bacteria Few (Negative); Urine Red Blood Cell 0-2 /HPF (0-2); Urine Squamous Cell 0-2 /LPF (Few)
[2024-07-24] MEDS: MELATONIN 5 MG PO (21:40)
[2024-07-25] VITALS (15 sets, daily range): BP systolic 89–120; BP diastolic 74–97; BMI 25.4
[2024-07-25] MEDS: THIAMINE INJECTION 200 MG IV ×3 (00:15→15:56)
[2024-07-25 02:08] LABS: Amphetamines Negative (Negative); Barbiturates Negative (Negative); Benzodiazepines Negative (Negative); Buprenorphine Negative (Negative); Cocaine Negative (Negative); Marijuana Negative (Negative); Methadone Negative (Negative); Methamphetamines Negative (Negative); Opiates Negative (Negative); Phencyclidine Negative (Negative); Tricyclic Antidepressants Negative (Negative)
[2024-07-25 03:34] LABS: Hematocrit 42.9 % (39.0-52.0); Hemoglobin 15.1 g/dL (13.0-18.0); Mean Corp Hgb Conc. 35.2 g/dL (33.0-37.0); Mean Corpuscular Volume 88.1 fL (80.0-94.0); Mean Platelet Volume 12.5 fL (7.4-10.4); Platelet Count 78 10^3/uL (130-400); Red Blood Cell Count 4.87 10^6/uL (4.70-6.10); Red Cell Dist. Width 13.5 % (11.5-14.5); White Blood Cell Count 8.4 10^3/uL (4.8-10.8)
[2024-07-25 03:39] LABS: INR 1.43
[2024-07-25 03:53] LABS: ALT (SGPT) 37 U/L (0-50); AST (SGOT) 66 U/L (17-59); Albumin 2.7 g/dl (3.5-5.0); Alkaline Phosphatase 84 U/L (38-126); Blood Urea Nitrogen 40 mg/dl (9-20); Calcium 8.5 mg/dl (8.4-10.2); Carbon Dioxide 26 mmol/L (22-30); Chloride 100 mmol/L (98-107); Estimated Creatinine Clearance 85 ml/min; Glucose 83 mg/dl (70-99); Magnesium 1.5 mg/dl (1.6-2.3); Potassium 3.5 mmol/L (3.5-5.1); Sodium 132 mmol/L (135-145); Total Bilirubin 1.2 mg/dl (0.2-1.3); Total Protein 6.1 g/dl (6.3-8.2); eGFR > 60.00
--- NOTE | 2024-07-25 04:47 | PTCARENOTE ---
Pt AAOx3. Pt A flutter on monitor with frequent polymorphic PVC's. HR remains elevated, pt asymptomatic. SpO2 high 90s on HFNC, weaning as tolerated by RT. Pt putting out a lot of urine using the urinal. Heparin gtt infusing see worklist. Pt able to
make needs known, call vasquez within reach.
[2024-07-25] MEDS: MAGNESIUM SULFATE 100 IV (08:38)
[2024-07-25] MEDS: ALDACTONE 12.5 MG PO (08:40)
[2024-07-25] MEDS: TOPROL XL 100 MG PO (08:40)
[2024-07-25] MEDS: FOLVITE 1 MG PO (08:40)
[2024-07-25] MEDS: LASIX 40 MG IV ×2 (08:42→15:57)
[2024-07-25] MEDS: PACERONE 400 MG PO ×3 (08:54→20:49)
--- NOTE | 2024-07-25 09:22 | W.PN.HOSP.TC ---
Today's Communication/Plan
-
wean O2
diurese
PT/OT
Assessment / Plan
Assessment / Plan
pt is a 73 year old male
Acute Hypoxic Respiratory Failure secondary to CHF and Left Pleural Effusion--on midflow NC O2--s/p 1200 ml removed from thoracentesis, studies reveal transudative--wean O2 if able--cont diuresing
Acute Heart Failure, reduced EF-- ECHO with EF 25% and global hypokinesis, dilated and hypokinetic RV, dilated RA, mod to severe tricuspid regurg--cont diuresis--daily weights, I/Os--cath appears to be off the table--Entesto $171.38 current cost due
to deductible and $45 thereafter
Paroxysmal Atrial Fibrillation/Flutter with Rapid Ventricular Response--subtherapeutic INR--cont heparin drip to coumadin--cont cardizem drip--amio, metoprolol, coumadin
hyponatremia/hypomagnesemia--due to volume overload--diurese--replete
Elevated Troponin, likely non-ischemic myocardial injury due to hypoxia, heart failure and tachycardia--peaked at 0.08--down to 0.069
Hyperkalemia--Suspect will improve with diuretics--Hold lisinopril--resolved
Essential Hypertension--Continue Metoprolol--Holding lisinopril and amlodipine
Hx Lupus
DVT proph-- Coumadin--follow INR--on IV hepaing currently
Code Status-- Limited DNR - No defibrillation or chest compressions - OK for intubation only
in cardiology note, daughter asking about hospice--pt feels better with thoracentesis--will defer these discussions to cardiology
I have concerns about underlying dementia in this patient.....despite explaining plan every day to him, says no one telling him anything--said no gym supervisor saw him..Dr. Mera saw him and has note from 07/24....
Anticipated Discharge: > 48 hours
Subjective/Interval History
-
Date of Service: July 25, 2024
pt upset no one is telling him about the plan ---he did not want to call his daughter when we were in there....wonder if there is some underlying dementia
Objective Data
-
Labs:
Laboratory Results
07/25/24 07/25/24 07/25/24
03:05 06:00 09:00
WBC 8.4
Hgb 15.1
Hct 42.9
Plt Count 78 L
PT 18.0 H Cancelled
INR 1.43 Cancelled
APTT 102.0 H Pending
Sodium 132 L
Potassium 3.5
Chloride 100
Carbon Dioxide 26
BUN 40 H
Creatinine 0.7
Glucose 83
Calcium 8.5
Total Bilirubin 1.2
AST 66 H
ALT 37
Alkaline Phosphatase 84
Vital Signs:
max temp for 24 hours
07/24/24
22:46
Temp 98.6 F
Vital Signs
Temp Pulse Resp BP Pulse Ox
97.8 F 115 16 117/90 95
07/25/24 07:10 07/25/24 08:54 07/25/24 06:00 07/25/24 08:54 07/25/24 07:57
I&O
07/24/24 07/25/24 07/26/24
06:59 06:59 06:59
Intake Total 720 / 720
Output Total 500 / 500 3575 / 3575 200 / 200
Balance -500 / -500 -2855 / -2855 -200 / -200
Review of Systems
-
All other systems: Reviewed and negative
Physical Exam
-
General: Well Developed, Well Nourished and No Apparent Distress
HEENT: Normocephalic, Atraumatic and Oxygen (now on midflo--off HI [place])
Respiratory: Decreased Breath Sounds
Cardiac: Regular Rhythm and S1/S2; Negative Murmur
GI: Soft, Nontender, Nondistended and Normal Bowel Sounds
Musculoskeletal: No Clubbing, No Cyanosis and No Edema
Neuro: Awake and Alert
--- NOTE | 2024-07-25 09:26 | CM ---
Addendum entered by Meka Peña 07/25/24 16:56:
Entresto cost from 07/24/24 171.38 deductable/ cost for this prescription and 45$ after this. CM updated attending physician regarding cost. CM will call to confirm cost of farxiga.
Addendum entered by Meka Peña 07/25/24 09:57:
CM spoke with Daughter Leann and she confirmed plan is home. Patient daughter also confirmed patient seemed overwhelmed or possibly confused this am. CM will continue to follow for discharge planning needs.
Original Note:
Patient seen at bedside with physician. Patient on mid flow O2 and indicated that he did not know plan, Physician reviewed plan with patient and CM will attempt to call patient daughter to review information. CM will continue to follow for discharge
planning needs.
Plan; home with VN; watch for home O2 vs SNF pending therapy assessments.
[2024-07-25 10:26] LABS: APTT 56.4 Sec (23.4-35.0)
[2024-07-25] MEDS: HEPARIN 25000 UNITS/250 ML IV (11:11)
[2024-07-25 14:37] LABS: Lyme Antibody Screen, EIA Negative (Negative)
--- NOTE | 2024-07-25 15:03 | W.PN.CARDCBS ---
Today's Communication / Plan
-
We discussed goals of care. They are leaning towards FABBY cardioversion on Monday. They are leaning against invasive ischemic assessment. Discussed once again tomorrow and this weekend.
Once decision made against invasive ischemic assessment would start Coumadin. Continue heparin and watch platelets.
Awaiting cost of Entresto and would start if blood pressure tolerates
Awaiting cost of SGLT2 inhibitor
Continue diuresis
Impression / Plan
-
Primary Machine Long Goods Helper: Dr. Bella
Assessment:
Presentation with SOB, LE edema
Acute hypoxic respiratory failure, currently on high flow O2
Acute on chronic HF, with newly redduced LVEF
B/L pleural effusions by CXR
Typical atrial flutter with RVR
Subtherapeutic INR
Hyperkalemia
Elevated troponin
PVCs
Paroxysmal atrial fibrillation
Chronic Coumadin therapy, managed by [facility] Coumadin clinic
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
History of heart failure with reduced EF
Status post ICD placement in 2010, with subsequent 42 ICD shocks for rapid A-fib status post ICD system extraction in 2011
History of bioprosthetic AVR in 2014
Lupus
Chronic thrombocytopenia
Hypertension
Echo 2010: EF 10%, global hypokinesis, mild to moderate MR, severe with mild to moderate AR, moderate TR, moderate pulmonary hypertension
Echo 02/2015: EF 45 to 50%, moderate concentric LVH, mild MR, #27 bovine aortic with gradient 17/9 mmHg, mild TR PAP 30
ECHO 2018: EF 55 to 60%, no regional wall motion abnormalities, mild MR, #27 bovine prosthetic aortic valve replacement with peak/mean gradients of 12/6 mmHg, mild to moderate TR, PAP 25 to 30 mmHg
Echo 07/23/24 : Normal left ventricular size with global hypokinesis and septal dyskinesis, EF 25%. Bioprosthetic aortic valve with peak/mean gradients of 19 and 12 mmHg. No aortic regurgitation. Dilated and hypokinetic right ventricle with
dilated right atrium, moderate to severe tricuspid regurgitation and pulmonary artery systolic pressure of 51 mmHg
Plan:
-Patient presents with SOB and LE edema. He has new HFrEF in the setting of rapid atrial flutter with history in the past of possible tachycardia induced cardiomyopathy and waxing and waning ejection fraction. At that time also aortic valve
stenosis noted.
He is doing better today with diuresis and is 3.5 L out overnight. I have asked nursing to weigh him on standing scale. Diurese given significant volume overload. Lasix increased to 40mg IV BID 07/24/2024
s/p thoracentesis 07/23/24 1200cc; pathology/cx pending
GDMT-continue toprol XL. His last lisinopril 3/10 AM. Will look into cost of entresto and consider starting. Continue to watch blood pressure given diuresis.
Spironolatone 12.5mg QD started 07/24/2024
consider SGLT2i
Follow i/o and weights
Follow electrolytes
HF team consult
He is weaned from high flow oxygen yesterday to 4 L of oxygen today, 07/25/2024.
-Aflutter with RVR. History of atrial fibrillation.
Continue amiodarone
Continue toprol XL
Heparin to coumadin (INR 1.99 on admit) given subtherapeutic INR on arrival, IV heparin gtt. He had been on Xarelto in the past, however this had caused epistaxis so was transition to Coumadin.
Plan for FABBY cardioversion likely on Monday.
-Last ischemic assessment was cardiac catheterization in 2014 which was negative for obstructive coronary disease.
trop peaked at 0.099 and downtrending. no CP.
-History of thrombocytopenia follow closely on anticoagulant.
-History of ICD in the past removed for inappropriate shocks
He is limited DNR.
I had a long discussion today with the patient and his daughter at the bedside. We discussed first and foremost goals of care. He does not want to be hospice or palliative care at this time. Continue guideline directed medical care. They will
make decisions in the next few days regarding whether he would like invasive ischemic assessment and FABBY cardioversion.
As of right now he believes they are leaning towards:
-No inpatient ischemic assessment but consideration for stress testing as outpatient
-FABBY cardioversion on Monday after maximization of medications and volume status.
If plan is for FABBY cardioversion on Monday without invasive assessment of coronary arteries would start Coumadin BARBARA as we continue heparin. Reassess tomorrow.
I have spent 32 minutes total critical care time in discussion, review of records, discussing goals of care and treatment options. All questions answered.
Progress Note - Machine Long Goods Helper
Subjective
Date of Service: July 25, 2024
He denies chest pain and palpitations. He still has significant edema.
Objective
Labs:
07/25/24 03:05
07/25/24 03:05
Labs
Hgb 15.1 g/dL (13.0-18.0) 07/25/24 03:05
Hct 42.9 % (39.0-52.0) 07/25/24 03:05
Plt Count 78 10^3/uL (130-400) L 07/25/24 03:05
PT Cancelled 07/25/24 06:00
INR Cancelled 07/25/24 06:00
APTT 56.4 Sec (23.4-35.0) H 07/25/24 09:42
Sodium 132 mmol/L (135-145) L 07/25/24 03:05
Potassium 3.5 mmol/L (3.5-5.1) 07/25/24 03:05
BUN 40 mg/dl (9-20) H 07/25/24 03:05
Creatinine 0.7 mg/dL (0.7-1.3) 07/25/24 03:05
Glucose 83 mg/dl (70-99) 07/25/24 03:05
Troponins
07/22/24 07/22/24 07/23/24
15:35 21:49 04:19
Troponin I 0.099 H* 0.084 H* 0.069 H*
Vital Signs and I&O:
Vital Signs
Temp Pulse Resp BP Pulse Ox
97.8 F 104 16 107/80 92
07/25/24 07:10 07/25/24 10:00 07/25/24 10:00 07/25/24 10:00 07/25/24 12:08
Vital Signs
Temp Pulse Resp BP Pulse Ox
97.8 F 104 16 107/80 92
07/25/24 07:10 07/25/24 10:00 07/25/24 10:00 07/25/24 10:00 07/25/24 12:08
Intake & Output
07/23/24 07/24/24 07/25/24 07/26/24
06:59 06:59 06:59 06:59
Intake Total 720 / 720
Output Total 500 / 500 500 / 500 3575 / 3575 1000 / 1000
Balance -500 / -500 -500 / -500 -2855 / -2855 -1000 / -1000
Physical Exam
Physical Exam
General: Sitting in chair with oxygen in place
Neck: JVD to mandible
Heart: Tachycardia but regular
Lungs: Oxygen in place with coarse breath sounds with bilateral crackles
Extremities: No clubbing, cyanosis and +2 edema bilaterally.
Neuro: Grossly nonfocal, awake, alert
[2024-07-25 17:26] LABS: APTT 40.9 Sec (23.4-35.0)
--- NOTE | 2024-07-25 17:51 | PTCARENOTE ---
Rec'd pt this AM. Pt requires a lot of encouragement as he is easily annoyed by the nursing tasks required. Pt improved to 4L NC with O2 sat 96%. remains on heparin drip.
[2024-07-26] VITALS (12 sets, daily range): BP systolic 101–122; BP diastolic 82–96; BMI 23.4
[2024-07-26 00:32] LABS: APTT 196.7 Sec (23.4-35.0)
[2024-07-26] MEDS: MELATONIN 5 MG PO ×2 (00:41→23:05)
[2024-07-26] MEDS: THIAMINE INJECTION 200 MG IV ×2 (00:41→08:44)
--- NOTE | 2024-07-26 02:43 | PTCARENOTE ---
Caring for pt overnight. aaox3, pleasant. aflutter/ST on monitor, hr in 100's consistently. bps stable. Remains on 4LNC, SOB on exertion. Heparin gtt running, titrated per PTT. NO other issues at this time. Will monitor.
[2024-07-26] MEDS: HEPARIN 25000 UNITS/250 ML IV (07:12)
[2024-07-26 08:02] LABS: APTT 95.2 Sec (23.4-35.0)
[2024-07-26 08:24] LABS: ALT (SGPT) 40 U/L (0-50); AST (SGOT) 52 U/L (17-59); Albumin 2.6 g/dl (3.5-5.0); Alkaline Phosphatase 87 U/L (38-126); Blood Urea Nitrogen 25 mg/dl (9-20); Calcium 8.3 mg/dl (8.4-10.2); Carbon Dioxide 31 mmol/L (22-30); Chloride 97 mmol/L (98-107); Estimated Creatinine Clearance 85 ml/min; Glucose 80 mg/dl (70-99); Magnesium 1.7 mg/dl (1.6-2.3); Potassium 3.2 mmol/L (3.5-5.1); Sodium 132 mmol/L (135-145); Total Bilirubin 1.2 mg/dl (0.2-1.3); Total Protein 5.8 g/dl (6.3-8.2); eGFR > 60.00
[2024-07-26 08:27] LABS: Hematocrit 44.1 % (39.0-52.0); Hemoglobin 15.2 g/dL (13.0-18.0); Mean Corp Hgb Conc. 34.5 g/dL (33.0-37.0); Mean Corpuscular Hgb 31.2 pg (27.0-31.0); Mean Corpuscular Volume 90.6 fL (80.0-94.0); Platelet Count 80 10^3/uL (130-400); Red Blood Cell Count 4.87 10^6/uL (4.70-6.10); Red Cell Dist. Width 13.8 % (11.5-14.5); White Blood Cell Count 6.1 10^3/uL (4.8-10.8)
--- NOTE | 2024-07-26 08:39 | W.PN.HOSP.TC ---
Today's Communication/Plan
-
downgrade to IVU
diuresis
replete K, mg as needed
Assessment / Plan
Assessment / Plan
pt is a 73 year old male
Acute Hypoxic Respiratory Failure secondary to CHF and Left Pleural Effusion--now down to 4L from Hi [place]--s/p 1200 ml removed from thoracentesis, studies reveal transudative--wean O2--cont diuresing--weights 72.4 kg down to 65.8 kg--he states that
he is supposed to meet with cards on Monday and then have procedure Monday
Acute Heart Failure, reduced EF-- ECHO with EF 25% and global hypokinesis, dilated and hypokinetic RV, dilated RA, mod to severe tricuspid regurg--cont diuresis--daily weights, I/Os--cath appears to be off the table--Entresto $171.38 current cost
due to deductible and $45 thereafter--await Farxiga cost
Paroxysmal Atrial Fibrillation/Flutter with Rapid Ventricular Response--subtherapeutic INR--cont heparin drip to coumadin as per cards pending any cards procedures---amio, metoprolol
hyponatremia/hypomagnesemia/hypokalemia--due to volume overload--diurese--replete as needed
Elevated Troponin, likely non-ischemic myocardial injury due to hypoxia, heart failure and tachycardia--peaked at 0.08--down to 0.069
Hyperkalemia--resolved--improved with diuretics--Held lisinopril
Essential Hypertension--Continue Metoprolol--Holding lisinopril and amlodipine
Hx Lupus
DVT proph-- Coumadin--follow INR--on IV heparin drip currently
Code Status-- Limited DNR - No defibrillation or chest compressions - OK for intubation only
in cardiology note, daughter asking about hospice--pt feels better with thoracentesis--will defer these discussions to cardiology
I have concerns about underlying dementia in this patient.....despite explaining plan every day to him, says no one telling him anything--said no mentally retarded teacher saw him..Dr. Mera saw him and has note from 07/24....
Anticipated Discharge: > 48 hours
Subjective/Interval History
-
Date of Service: July 26, 2024
pt without c/o--down to 4L O2
Objective Data
-
Labs:
Laboratory Results
07/26/24 07/26/24
00:07 07:29
WBC 6.1
Hgb 15.2
Hct 44.1
Plt Count 80 L
PT Pending Cancelled
INR Pending Cancelled
APTT 196.7 H* 95.2 H
Sodium 132 L
Potassium 3.2 L
Chloride 97 L
Carbon Dioxide 31 H
BUN 25 H
Creatinine 0.7
Glucose 80
Calcium 8.3 L
Total Bilirubin 1.2
AST 52
ALT 40
Alkaline Phosphatase 87
Vital Signs:
max temp for 24 hours
07/25/24
20:29
Temp 98.0 F
Vital Signs
Temp Pulse Resp BP Pulse Ox
97.9 F 107 13 101/85 96
07/26/24 04:31 07/26/24 04:00 07/26/24 02:00 07/26/24 04:00 07/26/24 02:00
I&O
07/25/24 07/26/24 07/27/24
06:59 06:59 06:59
Intake Total 720 / 720
Output Total 3575 / 3575 3025 / 3025
Balance -2855 / -2855 -3025 / -3025
Review of Systems
-
All other systems: Reviewed and negative
Physical Exam
-
General: Well Developed, Well Nourished and No Apparent Distress
HEENT: Normocephalic, Atraumatic and Oxygen (4L)
Respiratory: Clear to Auscultation; Negative Wheezes or Rhonchi
Cardiac: Regular Rhythm and S1/S2; Negative Murmur
GI: Soft, Nontender, Nondistended and Normal Bowel Sounds
Musculoskeletal: No Clubbing and No Cyanosis; Negative No Edema (trace edema)
Neuro: Awake and Alert
Psych: Calm
[2024-07-26] MEDS: ALDACTONE 12.5 MG PO (08:45)
[2024-07-26] MEDS: TOPROL XL 100 MG PO (08:45)
[2024-07-26] MEDS: LASIX 40 MG IV ×2 (08:45→15:23)
[2024-07-26] MEDS: FOLVITE 1 MG PO (08:45)
[2024-07-26] MEDS: PACERONE 400 MG PO ×3 (08:46→23:05)
[2024-07-26 09:12] LABS: INR 1.16; PT 15.1 Sec (11.4-14.6)
[2024-07-26] MEDS: KLOR-CON 40 MEQ PO (09:19)
--- NOTE | 2024-07-26 12:43 | PTCARENOTE ---
Report received from Sherine RN - Pt arrived to floor in bed from IMU; Heparin gtts infusing into LFA @ 14.5ml's/hr - next PTT @ 1500; Pt able to ambulate to bed. 96% on 4L via MF cannula; Sinus Tach on tele monitor, HR 100-110's; Denies pain;
Urinal provided; Oriented to room, call vasquez within reach. Will continue to monitor and assess.
--- NOTE | 2024-07-26 13:04 | CM ---
Attempted to get medication cost for Farxiga 10 mg.
[facility] pharmacy cannot do without script being sent to pharmacy.
TC to [facility] [phone] transferred to [facility] [phone], per [facility] need to call provider number [phone], per rep unable to do at this time due to high call volume, would need to try again in 30-40 min.
--- NOTE | 2024-07-26 14:17 | W.PN.CARDCBS ---
Today's Communication / Plan
-
Diurese
Optimize goal-directed medical therapy for cardiomyopathy/heart failure
IV heparin to Coumadin with plan for FABBY cardioversion 07/29/2024
Impression / Plan
-
Primary Electric Solderer: Dr. Bella
Assessment:
Presentation with SOB, LE edema
Acute hypoxic respiratory failure, currently on high flow O2
Acute on chronic HF, with newly redduced LVEF
B/L pleural effusions by CXR
Typical atrial flutter with RVR
Subtherapeutic INR
Hyperkalemia
Elevated troponin
PVCs
Paroxysmal atrial fibrillation
Chronic Coumadin therapy, managed by [facility] Coumadin clinic
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
History of heart failure with reduced EF
Status post ICD placement in 2010, with subsequent 42 ICD shocks for rapid A-fib status post ICD system extraction in 2011
History of bioprosthetic AVR in 2014
Lupus
Chronic thrombocytopenia
Hypertension
Echo 2010: EF 10%, global hypokinesis, mild to moderate MR, severe with mild to moderate AR, moderate TR, moderate pulmonary hypertension
Echo 02/2015: EF 45 to 50%, moderate concentric LVH, mild MR, #27 bovine aortic with gradient 17/9 mmHg, mild TR PAP 30
ECHO 2018: EF 55 to 60%, no regional wall motion abnormalities, mild MR, #27 bovine prosthetic aortic valve replacement with peak/mean gradients of 12/6 mmHg, mild to moderate TR, PAP 25 to 30 mmHg
Echo 07/23/24 : Normal left ventricular size with global hypokinesis and septal dyskinesis, EF 25%. Bioprosthetic aortic valve with peak/mean gradients of 19 and 12 mmHg. No aortic regurgitation. Dilated and hypokinetic right ventricle with
dilated right atrium, moderate to severe tricuspid regurgitation and pulmonary artery systolic pressure of 51 mmHg
Plan:
-Patient presents with SOB and LE edema. He has new HFrEF in the setting of rapid atrial flutter with history in the past of possible tachycardia induced cardiomyopathy and waxing and waning ejection fraction.
Remains volume overloaded however volume status is improving.
Continue IV Lasix 40 mg twice daily
I's/O's, daily weights
s/p thoracentesis 07/23/24 1200cc; pathology/cx pending
GDMT
-continue toprol XL.
-His last lisinopril 10 AM. Will start Entresto 25-26 mg twice daily tomorrow
-Spironolatone 12.5mg QD started 07/24/2024; uptitrate if possible to 25 mg daily after start of Entresto
-consider [id number] ask case management again to assess cost. Hopefully can start Farxiga 10 mg daily if cost acceptable
Follow electrolytes: Keep K greater than 4, mag greater than 2
HF team consult
He is weaned from high flow oxygen yesterday to 4 L of oxygen today, 07/25/2024.
Per patient and chart, there was previous discussion of cardiac catheterization however prior decision was for consideration of outpatient ischemic evaluation with plan for FABBY cardioversion as an inpatient
-Aflutter with RVR. History of atrial fibrillation.
Continue amiodarone
Continue toprol XL
Heparin to coumadin (INR 1.99 on admit) given subtherapeutic INR on arrival, IV heparin gtt. He had been on Xarelto in the past, however this had caused epistaxis so was transition to Coumadin.
Plan for FABBY/ cardioversion likely on Monday.
-Last ischemic assessment was cardiac catheterization in 2014 which was negative for obstructive coronary disease.
trop peaked at 0.099 and downtrending. no CP.
-History of thrombocytopenia follow closely on anticoagulant.
-History of ICD in the past removed for inappropriate shocks
He is limited DNR.
Progress Note - Electric Solderer
Subjective
Date of Service: July 26, 2024
Patient was seen and examined. He is lying supine with nasal cannula O2 and appears comfortable. Reports improved shortness of breath and leg edema. No palpitations. No chest pain.
Objective
Labs:
07/26/24 07:29
07/26/24 07:
Labs
Hgb 15.2 g/dL (13.0-18.0) 07/26/24 07:29
Hct 44.1 % (39.0-52.0) 07/26/24 07:
Plt Count 80 10^3/uL (130-400) L 07/26/24 07:29
PT 15.1 Sec (11.4-14.6) H 07/26/24 07:
PT Cancelled 07/26/24 07:
INR 1.16 07/26/24 07:29
INR Cancelled 07/26/24 07:
APTT 95.2 Sec (23.4-35.0) H 07/26/24 07:29
Sodium 132 mmol/L (135-145) L 07/26/24 07:29
Potassium 3.2 mmol/L (3.5-5.1) L 07/26/24 07:29
BUN 25 mg/dl (9-20) H 07/26/24 07:29
Creatinine 0.7 mg/dL (0.7-1.3) 07/26/24 07:29
Glucose 80 mg/dl (70-99) 07/26/24 07:29
Vital Signs and I&O:
Vital Signs
Temp Pulse Resp BP Pulse Ox
97.7 F 115 18 115/92 96
07/26/24 11:00 07/26/24 10:03 07/26/24 10:03 07/26/24 10:03 07/26/24 09:57
Vital Signs
Temp Pulse Resp BP Pulse Ox
97.7 F 115 18 115/92 96
07/26/24 11:00 07/26/24 10:03 07/26/24 10:03 07/26/24 10:03 07/26/24 09:57
Intake & Output
07/24/24 07/25/24 07/26/24 07/27/24
06:59 06:59 06:59 06:59
Intake Total 720 / 720
Output Total 500 / 500 3575 / 3575 3025 / 3025 350 / 350
Balance -500 / -500 -2855 / -2855 -3025 / -3025 -350 / -350
Physical Exam
Physical Exam
General: No acute distress, AAOX3
Heart: Regular, tachycardic. Positive S1-S2. No murmurs or rub
Lungs: Bronchovesicular breath sounds decreased with fine crackles bilaterally
Abd: Positive BS, NT/ND, neg rebound/rigidity/guarding
Ext: ++ edema
Neuro: nonfocal
--- NOTE | 2024-07-26 15:16 | CM ---
Priced Farxiga thru patient's pharmacy plan, [facility]- [phone].
Pt. has to satisfy a remaining $150 annual deductible first. Once this is met, the estimated monthly co pay for Farxiga is $45/mo.
I will provide a free 30 d coupon for both Farxiga and Entresto and place in DC section of chart.
CM to follow.
[2024-07-26] MEDS: MAGNESIUM OXIDE 500 MG PO (15:24)
[2024-07-26 15:43] LABS: APTT 141.7 Sec (23.4-35.0)
--- NOTE | 2024-07-26 15:44 | CM ---
Met w/ patient at bedside.
Pt. has transferred to IVU from alternative wir.
Reviewed initial assessment w/ patient. Pt. resides alone in a private, 2 st home. He is functionally indep. w/ ADLs, mobility without the use of any assisted device. Does not use any additional DME.
We reviewed estimated cost of medications; wrote on his whiteboard as requested by pt. Will place free 30 d coupons in patient's chart.
Pt. tells me that there is a meeting w/ his dtr. on Monday, will discuss plan of care at that time.
Goal is for home.
CM to follow.
[2024-07-26 16:03] LABS: Blood Urea Nitrogen 24 mg/dl (9-20); Calcium 8.8 mg/dl (8.4-10.2); Carbon Dioxide 31 mmol/L (22-30); Chloride 95 mmol/L (98-107); Estimated Creatinine Clearance 74 ml/min; Glucose 88 mg/dl (70-99); Potassium 3.6 mmol/L (3.5-5.1); Sodium 131 mmol/L (135-145); eGFR > 60.00
[2024-07-26] MEDS: COUMADIN 4 MG PO (17:33)
[2024-07-26] MEDS: KLOR-CON 20 MEQ PO (19:45)
[2024-07-26] MEDS: VITAMIN B1 100 MG PO (19:45)
[2024-07-26 23:35] LABS: APTT 48.7 Sec (23.4-35.0)
--- NOTE | 2024-07-26 23:36 | PTCARENOTE ---
received patient at the change of shift. resting in bed comfortably. denies any pain at this time. HR appears to be a 2:1 Aflutter with PVCs- HR low 100s. patient denies any palpitations/sob. appears dyspnea on exertion. patient states 'im feeling
good.' urinating yellow urine in the urinal. heparin gtt infusing per order. IV sites patent. educated patient to inform RN with any changes overnight. call vasquez within reach makes needs known.
weaned patients oxygen to 3L NC- maintained sp02 96%.
[2024-07-27] VITALS (7 sets, daily range): BP systolic 94–117; BP diastolic 73–95; BMI 22.6
[2024-07-27] MEDS: HEPARIN 25000 UNITS/250 ML IV ×2 (02:55→22:26)
[2024-07-27 06:32] LABS: Hematocrit 43.6 % (39.0-52.0); Mean Corp Hgb Conc. 34.4 g/dL (33.0-37.0); Mean Corpuscular Hgb 30.5 pg (27.0-31.0); Mean Corpuscular Volume 88.8 fL (80.0-94.0); Mean Platelet Volume 12.5 fL (7.4-10.4); Platelet Count 68 10^3/uL (130-400); Red Blood Cell Count 4.91 10^6/uL (4.70-6.10); Red Cell Dist. Width 13.9 % (11.5-14.5); White Blood Cell Count 6.1 10^3/uL (4.8-10.8)
[2024-07-27 06:33] LABS: INR 1.14; PT 14.9 Sec (11.4-14.6)
[2024-07-27 06:51] LABS: Blood Urea Nitrogen 21 mg/dl (9-20); Calcium 8.7 mg/dl (8.4-10.2); Carbon Dioxide 32 mmol/L (22-30); Chloride 96 mmol/L (98-107); Estimated Creatinine Clearance 84 ml/min; Glucose 85 mg/dl (70-99); Magnesium 1.6 mg/dl (1.6-2.3); Potassium 3.6 mmol/L (3.5-5.1); Sodium 131 mmol/L (135-145); eGFR > 60.00
--- NOTE | 2024-07-27 08:56 | W.PN.HOSP.TC ---
Today's Communication/Plan
-
wean O2
cardioversion Monday
Assessment / Plan
Assessment / Plan
pt is a 73 year old male
Acute Hypoxic Respiratory Failure secondary to CHF and Left Pleural Effusion--now down to 4L from [place]--s/p 1200 ml removed from thoracentesis, studies reveal transudative--wean O2--cont diuresing--weights 72.4 kg down to 65.8 kg--he states that
he is supposed to meet with cards on Monday and then have procedure Monday
Acute Heart Failure, reduced EF-- ECHO with EF 25% and global hypokinesis, dilated and hypokinetic RV, dilated RA, mod to severe tricuspid regurg--cont diuresis--daily weights, I/Os--cath appears to be off the table--Entresto $171.38 current cost
due to deductible and $45 thereafter--await Farxiga cost
Paroxysmal Atrial Fibrillation/Flutter with Rapid Ventricular Response--subtherapeutic INR--cont heparin drip to coumadin as per cards pending any cards procedures---amio, metoprolol
hyponatremia/hypomagnesemia/hypokalemia--due to volume overload--diurese--replete as needed
Elevated Troponin, likely non-ischemic myocardial injury due to hypoxia, heart failure and tachycardia--peaked at 0.08--down to 0.069
Hyperkalemia--resolved--improved with diuretics--Held lisinopril
Essential Hypertension--Continue Metoprolol--Holding lisinopril and amlodipine
Hx Lupus
DVT proph-- Coumadin--follow INR--on IV heparin drip currently
Code Status-- Limited DNR - No defibrillation or chest compressions - OK for intubation only
in cardiology note, daughter asking about hospice--pt feels better with thoracentesis--will defer these discussions to cardiology
updated daughter Leann 07/28/27
Anticipated Discharge: > 48 hours
Subjective/Interval History
-
Date of Service: July 27, 2024
pt without c/o
Objective Data
-
Labs:
Laboratory Results
07/26/24 07/27/24 07/27/24
23:08 06:05 12:00
WBC 6.1
Hgb 15.0
Hct 43.6
Plt Count 68 L
PT 14.9 H
INR 1.14
APTT 48.7 H 111.0 H Pending
Sodium 131 L
Potassium 3.6
Chloride 96 L
Carbon Dioxide 32 H
BUN 21 H
Creatinine 0.7
Glucose 85
Calcium 8.7
Vital Signs:
max temp for 24 hours
07/26/24
23:15
Temp 98.5 F
Vital Signs
Temp Pulse Resp BP Pulse Ox
97.5 F 104 20 117/95 97
07/27/24 07:13 07/27/24 04:00 07/27/24 07:13 07/27/24 02:54 07/27/24 07:13
I&O
07/26/24 07/27/24 07/28/24
06:59 06:59 06:59
Intake Total 240 / 240
Output Total 3025 / 3025 2750 / 2750
Balance -3025 / -3025 -2510 / -2510
Review of Systems
-
All other systems: Reviewed and negative
Physical Exam
-
General: Well Developed, Well Nourished and No Apparent Distress
HEENT: Normocephalic, Atraumatic and Oxygen
Respiratory: Decreased Breath Sounds (left lung base)
Cardiac: Regular Rhythm and S1/S2; Negative Murmur
GI: Soft, Nontender, Nondistended and Normal Bowel Sounds
Musculoskeletal: No Clubbing, No Cyanosis and No Edema
Neuro: Awake and Alert
Psych: Calm
[2024-07-27] MEDS: LASIX 40 MG IV ×2 (09:11→15:25)
[2024-07-27] MEDS: TOPROL XL 100 MG PO (09:13)
[2024-07-27] MEDS: KLOR-CON 20 MEQ PO ×2 (09:13→20:42)
[2024-07-27] MEDS: PACERONE 400 MG PO ×3 (09:14→22:23)
[2024-07-27] MEDS: ALDACTONE 12.5 MG PO (09:14)
[2024-07-27] MEDS: VITAMIN B1 100 MG PO ×2 (09:14→20:42)
[2024-07-27] MEDS: MAGNESIUM OXIDE 500 MG PO (09:14)
[2024-07-27] MEDS: FOLVITE 1 MG PO (09:14)
--- NOTE | 2024-07-27 09:47 | CON.ID ---
Addendum entered and electronically signed by Tiffany Chavez MD 07/28/24 09:12:
correction follow up imaging was CXR not CT
Original Note:
Consultation
-
Date/Time Consultation Requested: 07/27/24 7:29
Date/Time Consultation Performed: 07/27/24 9:48
Requesting Provider: Dr Logan
Performing Provider: Dr Chavez
Reason for Consultation: empyema
Chief Complaint / Past History
Chief Complaint
Shortness of Breath and Lower Extremity Edema
History of Present Illness
Ms Penaloza is a 73 year old female with history of s/p bioprosthetic AVR on warfarin, CHF, afib, Lupus, who presented here on 07/22 for lower extremity edema and shortness of breath. At baseline he had welling of the ankles, but over the last few
weeks it increased to his knees and he developed dyspnea on exertion, weakness and fatigue. No chest pain or palpitations. No fevers. Note that prior to arrival family called cardiology office regarding hospice.
Since arrival here he has been afebrile, bp stable, wbc initially 5 with suzanna at 2.0 normalized for the last 4 days, hgb 15, plt 68, on arrival there was monocytosis - no L shift, cr was 1.0 on arrival now 0.7, UA no pyuria, underwent throcentesis
for 1.2 L of clear yellow pleural fluid, showing pH 7.48, wbc 1500, monocytic, ldh 105, urine tox negative, immunoglobulins 2021 not depressed, lyme serology was negative, Xray lumbar spine compression fx of L2 endplate, lumbar spine CT: DJD, renal
US: benign apperaing renal cyst, CXR: Moderate left pleural effusion and small right pleural effusion. Bibasilar airspace disease may also be present. follow up CXR: decrease in the L pleural effusion - no infiltrates, EF 25% - new, pleural fluid
culture grew GNR in the broth only, qtc 523 in a flutter, he was assessed by caridology and felt to have likely tachycardia related CHF.
Past History
Additional Past Medical History:
Congestive Heart Failure
Cardiomegaly
Aortic Stenosis s/p Bioprosthetic Aortic Valve Replacement
Paroxysmal Atrial Fibrillation
Essential Hypertension
Hyperlipidemia
Lupus
Anxiety
Additional Past Surgical History:
Aortic Valve Replacement
Bilateral Knee Arthroscopy
Colon Resection
Status post extraction of ICD for inappropriate discharges related to atrial fibrillation
Allergy History:
rivaroxaban [From Xarelto] Allergy (Verified 07/22/24 13:44)
excessive bleeding, 'funny feeling'
Medications Reviewed: Yes
Social History
Tobacco: Smoker
Alcohol: Daily (2 oz burbon nightly)
Family History
Family History: Not Pertinent
Review of Systems
Review of Systems
General: Negative Fever or Chills
All systems: All other systems were reviewed and were negative
Vital Signs
Temp Pulse Resp BP Pulse Ox
97.5 F 105 20 111/92 93
07/27/24 07:13 07/27/24 09:14 07/27/24 07:13 07/27/24 09:14 07/27/24 09:00
Physical Exam
Physical Exam
Constitutional: No Acute Distress
Cardiovascular: Regular Rate and S1/S2; Negative Murmur or Rub
Pulmonary: Clear and Symmetric; Negative Wheezes, Rales or Rhonchi
Gastrointestinal: Soft, Non Tender, Non Distended and Normal Bowel Sounds
Skin: Warm and Dry; Negative Rash or Jaundice
Lab / Diagnostic Study Results
07/27/24 06:05
07/27/24 06:05
Abs Immat Gran (auto) 0.0 10^3/uL (0-0.05) 07/22/24 13:53
Absolute Neuts (auto) 3.7 10^3/uL (1.4-6.5) 07/22/24 13:53
Absolute Lymphs (auto) 0.7 10^3/uL (1.2-3.4) L 07/22/24 13:53
Absolute Monos (auto) 0.7 10^3/uL (0.1-0.6) H 07/22/24 13:53
Absolute Basos (auto) 0.0 10^3/uL (0-0.2) 07/22/24 13:53
Immature Gran % 0.4 % (0-0.5) 07/22/24 13:53
Neutrophils % 71.2 % (42.2-75.2) 07/22/24 13:53
Lymphocytes % 13.8 % (20.5-51.1) L 07/22/24 13:53
Monocytes % 14.2 % (1.7-9.3) H 07/22/24 13:53
Eosinophils % 0.0 % (0-6) 07/22/24 13:53
Basophils % 0.4 % (0-2) 07/22/24 13:53
PT 14.9 Sec (11.4-14.6) H 07/27/24 06:05
INR 1.14 07/27/24 06:05
Urine WBC 3-5 /HPF (0-5) 07/24/24 21:10
Ur Squamous Epith Cells 0-2 /LPF (Few) 07/24/24 21:10
Microbiology Results
Micro:
07/23/24 09:14 Body Fluid Culture - Preliminary
Pleural Fluid Gram negative bacilli
Gram Stain - Preliminary
Assessment / Plan
Complicated L Pleural Effusion
Speech therapy evaluation
- gram negative found in the broth only
- pleural fluid not consistent with empyema
- follow up CT with resolved effusion
- primary etiology of the effusion remains likely CHF with minimal secondary infection
- check swallow evaluation
- start ceftriaxone for now
- plan transition to orals when ID and sensitivities found
[2024-07-27] MEDS: ENTRESTO 24 MG/26 MG 1 TAB PO ×2 (10:29→20:41)
[2024-07-27] MEDS: COUMADIN 4 MG PO (10:29)
--- NOTE | 2024-07-27 10:49 | PTCARENOTE ---
received patient this am in bed, monitor shows Afib, VSS. IV heparin @ 1450units/hr without difficulties. bilat. arm ecchymotic. +2 pitting edema bilat., weak pulses. attempted to wean o2 off, unsuccessful. RA 88%, increased o2 to 2 LNC with
humidified air, 91%. INR 1.14, Coumadin 4mg po given as ordered. ID consulted, will start Rocephin as ordered. patient remains a limited DNR, no CPR.
--- NOTE | 2024-07-27 10:58 | PTOTSP ---
Speech Therapy Evaluation:
Pt with acute on chronic risk factors of dysphagia (CHF, AVR, Lupus, AHRF), however presents with functional oropharyngeal swallow at bedside. Oral phase WFL. No overt s/sx of aspiration across session. WBC WNL. CXR without evidence of PNA.
Recommend:
1. Continue IDDSI Level 7 (regular) solids and thin liquids
2. Medications as tolerated
3. General aspiration precautions
4. [employer]MP [employer] to s/o - please reconsult if indicated
--- NOTE | 2024-07-27 11:03 | W.PN.CARDCBS ---
Today's Communication / Plan
-
Continue IV Lasix 40 mg twice daily
Check proBNP tomorrow
Will start Entresto 25-26 mg twice daily
Follow electrolytes: Keep K greater than 4, mag greater than 2
Plan for FABBY cardioversion on Monday.
Tomorrow decrease amiodarone to 200 mg daily
Heparin to warfarin. Warfarin ordered.
Impression / Plan
-
Primary Life Sciences Director: Dr. Bella
Assessment:
Presentation with SOB, LE edema
Acute hypoxic respiratory failure, currently on high flow O2
Acute on chronic HF, with newly redduced LVEF
B/L pleural effusions by CXR
Typical atrial flutter with RVR
Subtherapeutic INR
Hyperkalemia
Elevated troponin
PVCs
Paroxysmal atrial fibrillation
Chronic Coumadin therapy, managed by [facility] Coumadin clinic
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
History of heart failure with reduced EF
Status post ICD placement in 2010, with subsequent 42 ICD shocks for rapid A-fib status post ICD system extraction in 2011
History of bioprosthetic AVR in 2014
Lupus
Chronic thrombocytopenia
Hypertension
Echo 2011: EF 10%, global hypokinesis, mild to moderate MR, severe with mild to moderate AR, moderate TR, moderate pulmonary hypertension
Echo 02/2015: EF 45 to 50%, moderate concentric LVH, mild MR, #27 bovine aortic with gradient 17/9 mmHg, mild TR PAP 30
ECHO 2018: EF 55 to 60%, no regional wall motion abnormalities, mild MR, #27 bovine prosthetic aortic valve replacement with peak/mean gradients of 12/6 mmHg, mild to moderate TR, PAP 25 to 30 mmHg
Echo 07/23/24 : Normal left ventricular size with global hypokinesis and septal dyskinesis, EF 25%. Bioprosthetic aortic valve with peak/mean gradients of 19 and 12 mmHg. No aortic regurgitation. Dilated and hypokinetic right ventricle with
dilated right atrium, moderate to severe tricuspid regurgitation and pulmonary artery systolic pressure of 51 mmHg
Plan:
-Patient presents with SOB and LE edema. He has new HFrEF in the setting of rapid atrial flutter with history in the past of possible tachycardia induced cardiomyopathy and waxing and waning ejection fraction.
Remains volume overloaded however volume status is improving.
Continue IV Lasix 40 mg twice daily
I's/O's, daily weights (weight down 20 pounds altogether on 07/27/2024)
s/p thoracentesis 07/23/24 1200cc; with gram-negative bacilli being now followed by infectious disease
GDMT
-continue toprol XL.
-His last lisinopril 310 AM. Will start Entresto 25-26 mg twice daily
-Spironolatone 12.5mg QD started 07/24/2024; uptitrate if possible to 25 mg daily after start of Entresto
-consider SGLT2i
Follow electrolytes: Keep K greater than 4, mag greater than 2
Reassess proBNP tomorrow previously was 8150 on admission
HF team consult
He was weaned from high flow oxygen to 4 L and now down titration as tolerates
Plan for FABBY cardioversion on Monday.
Per patient defer ischemic assessment for now consider reassessment as an outpatient.
Will need left ventricular ejection fraction reassessment in 3 months
-Aflutter with RVR. History of atrial fibrillation.
Continue amiodarone and tomorrow will decrease to 200 mg daily (he would have received more than 5 g overall orally)
Continue toprol XL
Heparin to coumadin (INR 1.99 on admit) given subtherapeutic INR on arrival, IV heparin gtt. He had been on Xarelto in the past, however this had caused epistaxis so was transition to Coumadin.
Coumadin ordered for today goal INR 2-3. Continue heparin.
Plan for FABBY/ cardioversion on Monday.
-Last ischemic assessment was cardiac catheterization in 2014 which was negative for obstructive coronary disease.
trop peaked at 0.099 and downtrending. no CP.
Consider outpatient stress test
-History of thrombocytopenia follow closely on anticoagulant.
-History of ICD in the past removed for inappropriate shocks
-Pleural fluid with gram-negative bacilli
He does not appear to be actively infected. Infectious diseases following. Started ceftriaxone for now.
He is limited DNR.
Progress Note - Life Sciences Director
Subjective
Date of Service: July 27, 2024
He is feeling better overall. He denies chest pain and palpitations.
Objective
Labs:
07/27/24 06:05
07/27/24 06:05
Labs
Hgb 15.0 g/dL (13.0-18.0) 07/27/24 06:05
Hct 43.6 % (39.0-52.0) 07/27/24 06:05
Plt Count 68 10^3/uL (130-400) L 07/27/24 06:05
PT 14.9 Sec (11.4-14.6) H 07/27/24 06:05
INR 1.14 07/27/24 06:05
APTT 111.0 Sec (23.4-35.0) H 07/27/24 06:05
Sodium 131 mmol/L (135-145) L 07/27/24 06:05
Potassium 3.6 mmol/L (3.5-5.1) 07/27/24 06:05
BUN 21 mg/dl (9-20) H 07/27/24 06:05
Creatinine 0.7 mg/dL (0.7-1.3) 07/27/24 06:05
Glucose 85 mg/dl (70-99) 07/27/24 06:05
Vital Signs and I&O:
Vital Signs
Temp Pulse Resp BP Pulse Ox
97.5 F 108 20 111/92 91
07/27/24 07:13 07/27/24 10:29 07/27/24 07:13 07/27/24 10:29 07/27/24 10:44
Vital Signs
Temp Pulse Resp BP Pulse Ox
97.5 F 108 20 111/92 91
07/27/24 07:13 07/27/24 10:29 07/27/24 07:13 07/27/24 10:29 07/27/24 10:44
Intake & Output
07/25/24 07/26/24 07/27/24 07/28/24
06:59 06:59 06:59 06:59
Intake Total 720 / 720 240 / 240
Output Total 3575 / 3575 3025 / 3025 2750 / 2750
Balance -2855 / -2855 -3025 / -3025 -2510 / -2510
Physical Exam
Physical Exam
General: Well developed, well nourished in NAD.
Heart: Tacky but regular
Lungs: Crackles at the bases bilateral
Extremities: No clubbing, cyanosis +1 edema bilaterally.
Neuro: Grossly nonfocal, awake, alert and oriented x3.
[2024-07-27] MEDS: ROCEPHIN 2000 MG IV (11:43)
[2024-07-27] MEDS: STERILE WATER FOR INJECTION 20 ML IV (11:44)
[2024-07-27] MEDS: FLUSH (NSS) 1 FLUSH IV ×2 (11:45→15:26)
[2024-07-27 12:16] LABS: APTT 132.3 Sec (23.4-35.0)
[2024-07-27] MEDS: MELATONIN 5 MG PO (22:24)
[2024-07-28] VITALS (10 sets, daily range): BP systolic 79–133; BP diastolic 48–115; BMI 19.3
[2024-07-28 03:21] LABS: Hematocrit 47.4 % (39.0-52.0); Hemoglobin 16.4 g/dL (13.0-18.0); Mean Corp Hgb Conc. 34.6 g/dL (33.0-37.0); Mean Corpuscular Hgb 30.9 pg (27.0-31.0); Mean Corpuscular Volume 89.4 fL (80.0-94.0); Mean Platelet Volume 11.9 fL (7.4-10.4); Platelet Count 67 10^3/uL (130-400); Red Cell Dist. Width 13.7 % (11.5-14.5); White Blood Cell Count 6.5 10^3/uL (4.8-10.8)
[2024-07-28 03:26] LABS: PT 16.5 Sec (11.4-14.6)
[2024-07-28 03:27] LABS: APTT 75.6 Sec (23.4-35.0)
[2024-07-28 03:40] LABS: ALT (SGPT) 39 U/L (0-50); AST (SGOT) 38 U/L (17-59); Albumin 2.8 g/dl (3.5-5.0); Alkaline Phosphatase 89 U/L (38-126); Blood Urea Nitrogen 19 mg/dl (9-20); Calcium 8.7 mg/dl (8.4-10.2); Carbon Dioxide 32 mmol/L (22-30); Chloride 94 mmol/L (98-107); Estimated Creatinine Clearance 84 ml/min; Glucose 90 mg/dl (70-99); Magnesium 1.7 mg/dl (1.6-2.3); Potassium 3.6 mmol/L (3.5-5.1); Sodium 131 mmol/L (135-145); Total Bilirubin 1.1 mg/dl (0.2-1.3); Total Protein 6.1 g/dl (6.3-8.2); eGFR > 60.00
[2024-07-28 03:49] LABS: NT-proBNP 5110 pg/ml
--- NOTE | 2024-07-28 05:38 | PTCARENOTE ---
pt continues to be afib on the monitor, hr in the 100s, vss. pt offers no complaints at this time. pt slept well through the night. pt educated on plan of care and verbalized understanding. call vasquez within reach.
[2024-07-28] MEDS: LASIX 40 MG IV (08:37)
[2024-07-28] MEDS: KLOR-CON 20 MEQ PO ×2 (08:37→19:21)
[2024-07-28] MEDS: MAGNESIUM OXIDE 500 MG PO (08:38)
[2024-07-28] MEDS: VITAMIN B1 100 MG PO ×2 (08:38→19:20)
[2024-07-28] MEDS: ENTRESTO 24 MG/26 MG 1 TAB PO (08:38)
[2024-07-28] MEDS: ALDACTONE 12.5 MG PO (08:39)
[2024-07-28] MEDS: FOLVITE 1 MG PO (08:39)
[2024-07-28] MEDS: PACERONE 200 MG PO (08:39)
[2024-07-28] MEDS: TOPROL XL 100 MG PO (08:39)
--- NOTE | 2024-07-28 09:53 | PTCARENOTE ---
received this patient this am, monitor shows Afib, vent. trigeminy, VSS. IV heparin @ 1250units/hr without difficulties. PLT count this am 67, TT Dr. Logan, aware. patient feeling 'good' this am.
--- NOTE | 2024-07-28 10:13 | W.PN.CARDCBS ---
Today's Communication / Plan
-
I have switched him to 40 mg oral Lasix twice daily
For tomorrow have ordered start of SGLT2i
Follow and replete labs as needed
Wean oxygen as tolerates
Heparin to Coumadin with goal INR 2-3. 5 mg ordered today.
For FABBY cardioversion on Monday
Impression / Plan
-
Primary Supervisor Electronic Testing: Dr. Bella
Assessment:
Presentation with SOB, LE edema
Acute hypoxic respiratory failure, currently on high flow O2
Acute on chronic HF, with newly redduced LVEF
B/L pleural effusions by CXR
Typical atrial flutter with RVR
Subtherapeutic INR
Hyperkalemia
Elevated troponin
PVCs
Paroxysmal atrial fibrillation
Chronic Coumadin therapy, managed by [facility] Coumadin clinic
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
History of heart failure with reduced EF
Status post ICD placement in 2010, with subsequent 42 ICD shocks for rapid A-fib status post ICD system extraction in 2011
History of bioprosthetic AVR in 2014
Lupus
Chronic thrombocytopenia
Hypertension
Echo 2010: EF 10%, global hypokinesis, mild to moderate MR, severe with mild to moderate AR, moderate TR, moderate pulmonary hypertension
Echo 02/2015: EF 45 to 50%, moderate concentric LVH, mild MR, #27 bovine aortic with gradient 17/9 mmHg, mild TR PAP 30
ECHO 2018: EF 55 to 60%, no regional wall motion abnormalities, mild MR, #27 bovine prosthetic aortic valve replacement with peak/mean gradients of 12/6 mmHg, mild to moderate TR, PAP 25 to 30 mmHg
Echo 07/23/24 : Normal left ventricular size with global hypokinesis and septal dyskinesis, EF 25%. Bioprosthetic aortic valve with peak/mean gradients of 19 and 12 mmHg. No aortic regurgitation. Dilated and hypokinetic right ventricle with
dilated right atrium, moderate to severe tricuspid regurgitation and pulmonary artery systolic pressure of 51 mmHg
Plan:
-Patient presents with SOB and LE edema. He had new HFrEF in the setting of rapid atrial flutter with history in the past of possible tachycardia induced cardiomyopathy and waxing and waning ejection fraction.
Volume status has improved significantly his weight is down 23 pounds from admission
proBNP is still elevated at 5110 entheses 8150) clinically improved was on IV Lasix 40 mg twice daily. I have switched him to 40 mg oral Lasix twice daily
Continue to follow I's/O's, daily weights
s/p thoracentesis 07/23/24 1200cc; with gram-negative bacilli being now followed by infectious disease
GDMT
-continue toprol XL.
-His last lisinopril 07/22 AM. He was started on Entresto 25-26 mg twice daily
-Spironolatone 12.5mg QD started 07/24/2024; uptitrate if possible to 25 mg daily
-For tomorrow have ordered start of SGLT2i
Follow electrolytes: Keep K greater than 4, mag greater than 2
HF team consult
He was weaned from high flow oxygen to 4 L and now down titration as tolerates
Plan for FABBY cardioversion on Monday. Patient made NPO.
Per patient defer ischemic assessment for now consider reassessment as an outpatient.
Will need left ventricular ejection fraction reassessment in 3 months
-Aflutter with RVR. History of atrial fibrillation.
Continue amiodarone and tomorrow will decrease to 200 mg daily (he would have received more than 5 g overall orally)
Continue toprol XL
Heparin to coumadin (INR 1.99 on admit) given subtherapeutic INR on arrival, IV heparin gtt. He had been on Xarelto in the past, however this had caused epistaxis so was transition to Coumadin.
Coumadin ordered for today goal INR 2-3. Continue heparin.
Will need INR checks at least weekly given patient has been loaded with amiodarone.
Plan for FABBY/ cardioversion on Monday.
-Last ischemic assessment was cardiac catheterization in 2014 which was negative for obstructive coronary disease.
trop peaked at 0.099 and downtrending. no CP.
Consider outpatient stress test
-History of thrombocytopenia follow closely on anticoagulant.
-History of ICD in the past removed for inappropriate shocks
-Pleural fluid with gram-negative bacilli
He does not appear to be actively infected. Infectious diseases following. Started ceftriaxone for now.
He is limited DNR.
Progress Note - Supervisor Electronic Testing
Subjective
Date of Service: July 28, 2024
Feeling better overall. Less edema. Breathing has improved.
Objective
Labs:
07/28/24 02:37
07/28/24 02:37
Labs
Hgb 16.4 g/dL (13.0-18.0) 07/28/24 02:37
Hct 47.4 % (39.0-52.0) 07/28/24 02:37
Plt Count 67 10^3/uL (130-400) L 07/28/24 02:37
PT 16.5 Sec (11.4-14.6) H 07/28/24 02:37
INR 1.30 07/28/24 02:37
APTT 75.6 Sec (23.4-35.0) H 07/28/24 02:37
Sodium 131 mmol/L (135-145) L 07/28/24 02:37
Potassium 3.6 mmol/L (3.5-5.1) 07/28/24 02:37
BUN 19 mg/dl (9-20) 07/28/24 02:37
Creatinine 0.7 mg/dL (0.7-1.3) 07/28/24 02:37
Glucose 90 mg/dl (70-99) 07/28/24 02:37
Vital Signs and I&O:
Vital Signs
Temp Pulse Resp BP Pulse Ox
97.6 F 108 20 95/64 96
07/28/24 07:50 07/28/24 08:39 07/28/24 07:50 07/28/24 08:39 07/28/24 07:50
Vital Signs
Temp Pulse Resp BP Pulse Ox
97.6 F 108 20 95/64 96
07/28/24 07:50 07/28/24 08:39 07/28/24 07:50 07/28/24 08:39 07/28/24 07:50
Intake & Output
07/26/24 07/27/24 07/28/24 07/29/24
06:59 06:59 06:59 06:59
Intake Total 240 / 240 480 / 480
Output Total 3025 / 3025 2750 / 2750 3400 / 3400 300 / 300
Balance -3025 / -3025 -2510 / -2510 -2920 / -2920 -300 / -300
Physical Exam
Physical Exam
General: Thin elderly man in no acute distress
Neck: Supple, 7 cm JVD, positive HJR,
Heart: Tachycardic but regular
Lungs: Decreased breath sounds at the bases
Extremities: No clubbing, cyanosis and trace edema bilaterally.
Neuro: Grossly nonfocal, awake, alert and oriented x3.
[2024-07-28] MEDS: COUMADIN 4 MG PO (10:34)
[2024-07-28] MEDS: LASIX PO (10:36)
--- NOTE | 2024-07-28 11:02 | W.PN.ID1 ---
Date of Service
Date of Service: July 28, 2024
Today's Communication
- c/w ceftriaxone for now
- plan transition to orals when ID and sensitivities found
Assessment / Plan
Complicated L Pleural Effusion
Speech therapy evaluation
- gram negative found in the broth only
- pleural fluid not consistent with empyema
- primary etiology of the effusion remains likely CHF with minimal secondary infection
- aspiration precautions
- c/w ceftriaxone for now
- plan transition to orals when ID and sensitivities found
Chief Complaint
-: Other (complicated pleural effusion)
Subjective / Review of Systems
afebrile
afib noted
bp borderline hypotensive
mildly tachycardic
for FABBY monday
Vital Signs / Physical Exam
Vital Signs
Vital Signs
Temp Pulse Resp BP Pulse Ox
97.6 F 108 20 95/64 96
07/28/24 07:50 07/28/24 08:39 07/28/24 07:50 07/28/24 08:39 07/28/24 07:50
Physical Exam
Constitutional: No Acute Distress and Chronically Ill
Cardiovascular: Regular Rate and S1/S2; Negative Murmur or Rub
Pulmonary: Clear and Symmetric; Negative Wheezes or Rales
Gastrointestinal: Soft, Non Tender, Non Distended and Normal Bowel Sounds
Skin: Warm and Dry; Negative Rash or Jaundice
Objective Data
Lab Data
Lab Results
07/28/24 02:37
07/28/24 02:37
PT 16.5 Sec (11.4-14.6) H 07/28/24 02:37
INR 1.30 07/28/24 02:37
APTT 75.6 Sec (23.4-35.0) H 07/28/24 02:37
Estimated Creat Clear 84 ml/min 07/28/24 02:37
Total Bilirubin 1.1 mg/dl (0.2-1.3) 07/28/24 02:37
GGT 69 U/L (15-73) 07/23/24 10:09
AST 38 U/L (17-59) 07/28/24 02:37
ALT 39 U/L (0-50) 07/28/24 02:37
Alkaline Phosphatase 89 U/L (38-126) 07/28/24 02:37
Most recent labs reviewed.
Micro Results:
07/23/24 09:14 Body Fluid Culture - Preliminary
Pleural Fluid Gram negative bacilli
Gram Stain - Preliminary
--- NOTE | 2024-07-28 12:06 | W.PN.HOSP.TC ---
Today's Communication/Plan
-
FABBY with CV in AM
Assessment / Plan
Assessment / Plan
pt is a 73 year old male
Acute Hypoxic Respiratory Failure secondary to CHF and Left Pleural Effusion--down to 2L from [place]--s/p 1200 ml removed from thoracentesis, studies reveal transudative--wean O2--cont diuresing--weights 72.4 kg down to 65.8 kg--he states that he is
supposed to meet with cards on Monday and then have procedure Monday (FABBY CV)
Acute Heart Failure, reduced EF-- ECHO with EF 25% and global hypokinesis, dilated and hypokinetic RV, dilated RA, mod to severe tricuspid regurg--cont diuresis--daily weights, I/Os--cath appears to be off the table--Entresto $171.38 current cost
due to deductible and $45/month thereafter--Farxiga cost--$45/month
Paroxysmal Atrial Fibrillation/Flutter with Rapid Ventricular Response--subtherapeutic INR--cont heparin drip to coumadin as per cards pending any cards procedures---amio, metoprolol
hyponatremia/hypomagnesemia/hypokalemia--due to volume overload--diurese--replete as needed
Elevated Troponin, likely non-ischemic myocardial injury due to hypoxia, heart failure and tachycardia--peaked at 0.08--down to 0.069
Hyperkalemia--resolved--improved with diuretics--Held lisinopril
Essential Hypertension--Continue Metoprolol--Holding lisinopril and amlodipine
Hx Lupus
DVT proph-- Coumadin--follow INR--on IV heparin drip currently
Code Status-- Limited DNR - No defibrillation or chest compressions - OK for intubation only
in cardiology note, daughter asking about hospice--pt feels better with thoracentesis--will defer these discussions to cardiology
updated daughter Leann 07/28/27
Anticipated Discharge: 24 - 48 hours
Subjective/Interval History
-
Date of Service: July 28, 2024
pt waiting for FABBY CV tomorrow
Objective Data
-
Labs:
Laboratory Results
07/28/24
02:37
WBC 6.5
Hgb 16.4
Hct 47.4
Plt Count 67 L
PT 16.5 H
INR 1.30
APTT 75.6 H
Sodium 131 L
Potassium 3.6
Chloride 94 L
Carbon Dioxide 32 H
BUN 19
Creatinine 0.7
Glucose 90
Calcium 8.7
Total Bilirubin 1.1
AST 38
ALT 39
Alkaline Phosphatase 89
Vital Signs:
max temp for 24 hours
07/27/24
22:45
Temp 98.2 F
Vital Signs
Temp Pulse Resp BP Pulse Ox
97.6 F 106 20 95/64 96
07/28/24 07:50 07/28/24 10:00 07/28/24 07:50 07/28/24 08:39 07/28/24 07:51
I&O
07/27/24 07/28/24 07/29/24
06:59 06:59 06:59
Intake Total 240 / 240 480 / 480
Output Total 2750 / 2750 3400 / 3400 300 / 300
Balance -2510 / -2510 -2920 / -2920 -300 / -300
Review of Systems
-
All other systems: Reviewed and negative
Physical Exam
-
General: Well Developed, Well Nourished and No Apparent Distress
HEENT: Normocephalic and Atraumatic
Respiratory: Clear to Auscultation and Decreased Breath Sounds
Cardiac: Irregular Rhythm
GI: Soft, Nontender, Nondistended and Normal Bowel Sounds
Musculoskeletal: No Clubbing, No Cyanosis and No Edema
Skin: Warm
Neuro: Awake
[2024-07-28] MEDS: ROCEPHIN 2000 MG IV (12:13)
[2024-07-28] MEDS: STERILE WATER FOR INJECTION 20 ML IV (12:13)
[2024-07-28] MEDS: FLUSH (NSS) 1 FLUSH IV (12:14)
[2024-07-28] MEDS: LASIX 40 MG PO (15:59)
[2024-07-28] MEDS: HEPARIN 25000 UNITS/250 ML IV (16:58)
--- NOTE | 2024-07-28 18:06 | PTCARENOTE ---
daughter called me into room, they have discussed that patient would like to be a full DNR, TT Dr. Logan, aware. patient does want the CV in am. Dr. Logan changed patient to full DNR, purple bracelet placed placed on patient.
[2024-07-28] MEDS: ENTRESTO 24 MG/26 MG PO (20:41)
--- NOTE | 2024-07-28 20:53 | PTCARENOTE ---
assumed care of patient at the change of shift. AAOx3. resting in bed. patient has no complaints at this time. HR Afib 100s. bp on the lower side- recheck 91/79. denies any lightheadedness/dizziness. updated Dr. Louis Britt- hold entresto dose
and AM lasix. improved LE swelling. NPO at midnight for possible FABBY/CV. patient verbalized understanding. heparin gtt infusing per protocol. call vasquez within reach. makes needs known.
[2024-07-28] MEDS: MELATONIN 5 MG PO (22:22)
[2024-07-29] VITALS (14 sets, daily range): BP systolic 78–111; BP diastolic 51–83; BMI 19.4
[2024-07-29 05:39] LABS: INR 1.77; PT 20.8 Sec (11.4-14.6)
[2024-07-29 05:45] LABS: APTT 186.9 Sec (23.4-35.0)
--- NOTE | 2024-07-29 05:50 | PTCARENOTE ---
during morning rounds, patients oxygen was not on. checked pulse ox- 91% on RA while laying flat. monitored patients sp02 on RA- 91-94%.
[2024-07-29 06:01] LABS: Hematocrit 47.4 % (39.0-52.0); Mean Corp Hgb Conc. 33.8 g/dL (33.0-37.0); Mean Corpuscular Hgb 30.2 pg (27.0-31.0); Mean Corpuscular Volume 89.6 fL (80.0-94.0); Mean Platelet Volume 13.3 fL (7.4-10.4); Platelet Count 69 10^3/uL (130-400); Red Blood Cell Count 5.29 10^6/uL (4.70-6.10); Red Cell Dist. Width 13.8 % (11.5-14.5); White Blood Cell Count 6.4 10^3/uL (4.8-10.8)
[2024-07-29 06:40] LABS: Blood Urea Nitrogen 25 mg/dl (9-20); Calcium 8.5 mg/dl (8.4-10.2); Carbon Dioxide 28 mmol/L (22-30); Chloride 96 mmol/L (98-107); Estimated Creatinine Clearance 63 ml/min; Glucose 88 mg/dl (70-99); Magnesium 1.8 mg/dl (1.6-2.3); Sodium 132 mmol/L (135-145); eGFR > 60.00
--- NOTE | 2024-07-29 07:22 | W.PN.HOSP.TC ---
Today's Communication/Plan
-
see plan
Assessment / Plan
Assessment / Plan
pt is a 73 year old male with hx s/p AVR, HF, Afib/flutter, essential HTN presents to the ER with increased LE swelling and shortness of breath admitted for acute heart failure with left pleural effusion.
Acute Hypoxic Respiratory Failure secondary to acute HFrEF and Left Pleural Effusion
-required high flow earlier in admission
-TTE 07/23/24 with EF 25%; global hypokinesis
-s/p 1200 ml removed from thoracentesis 07/23/24, studies reveal transudative
-s/p IV lasix - transitioned to oral
-continue ATHLETIC TRAINER Metop XL
-stop ATHLETIC TRAINER Lisinopril, plan to start Entresto
-new start Spironolactone
--Entresto $171.38 current cost due to deductible and $45/month thereafter--Farxiga cost--$45/month
Paroxysmal Atrial Fibrillation/Flutter with Rapid Ventricular Response--subtherapeutic INR
-cont heparin drip to coumadin as per cards pending any cards procedures
-amio, metoprolol
-INR 1.77 this morning
-plan for FABBY cardioversion today
-will need weekly INR, now amio loaded
Concern for infected pleural effusion
-culture grew GNR
-studies not suggestive of empyema
-appreciate ID
-continue IV Ceftriaxone, follow up further sensitivities
hyponatremia/hypomagnesemia/hypokalemia--due to volume overload--diurese--replete as needed
Elevated Troponin, likely non-ischemic myocardial injury due to hypoxia, heart failure and tachycardia--peaked at 0.08--down to 0.069
Hyperkalemia--resolved--improved with diuretics
Essential Hypertension--Continue Metoprolol--Holding lisinopril and amlodipine
Hx Lupus
DVT proph-- Coumadin--follow INR--on IV heparin drip currently
Code Status-- Limited DNR - No defibrillation or chest compressions - OK for intubation only
in cardiology note, daughter asking about hospice--pt feels better with thoracentesis--will defer these discussions to cardiology
Anticipated Discharge: 24 - 48 hours
Subjective/Interval History
-
Date of Service: July 29, 2024
denies chest pain or shortness of breath
Objective Data
-
Labs:
Laboratory Results
07/29/24 07/29/24
05:14 12:50
WBC 6.4
Hgb 16.0
Hct 47.4
Plt Count 69 L
PT 20.8 H
INR 1.77
APTT 186.9 H* Pending
Sodium 132 L
Potassium 4.0
Chloride 96 L
Carbon Dioxide 28
BUN 25 H
Creatinine 0.9
Glucose 88
Calcium 8.5
Vital Signs:
Vital Signs
Temp Pulse Resp BP Pulse Ox
97.6 F 105 16 110/83 91
07/29/24 05:00 07/29/24 05:14 07/29/24 05:00 07/29/24 05:14 07/29/24 05:14
I&O
07/28/24 07/29/24 07/30/24
06:59 06:59 06:59
Intake Total 480 / 480 150 / 150
Output Total 3400 / 3400 1450 / 1450
Balance -2920 / -2920 -1300 / -1300
Review of Systems
-
History Source: Patient
All other systems: Reviewed and negative
Physical Exam
-
General: Well Developed, Well Nourished and No Apparent Distress
HEENT: Normocephalic and Atraumatic
Respiratory: Clear to Auscultation and Decreased Breath Sounds
Cardiac: Irregular Rhythm
GI: Soft, Nontender, Nondistended and Normal Bowel Sounds
Musculoskeletal: No Clubbing, No Cyanosis and No Edema
Skin: Warm
Neuro: Awake
Data Reviewed
-
Diagnostic Radiology: Report Reviewed by me
Labs: Labs Reviewed by me
[2024-07-29] MEDS: KLOR-CON 20 MEQ PO ×2 (09:31→19:51)
[2024-07-29] MEDS: MAGNESIUM OXIDE 500 MG PO (09:32)
--- NOTE | 2024-07-29 09:39 | PTCARENOTE ---
pt off unit for CV.
--- NOTE | 2024-07-29 09:52 | W.PN.ID1 ---
Date of Service
Date of Service: July 29, 2024
Today's Communication
- start augmentin to complete a 7 day total course 07/27-08/02
Assessment / Plan
Complicated L Pleural Effusion
Speech therapy evaluation
- gram negative found in the broth only - lab was unable to ID thus far and it has been sent to a reference lab
- pleural fluid not consistent with empyema
- primary etiology of the effusion remains likely CHF with minimal secondary infection
- aspiration precautions
- start augmentin to complete a 7 day total course 07/27-08/02
Chief Complaint
-: Other (complicated pleural effusion)
Subjective / Review of Systems
afebrile
mild hypotension noted
for FABBY/CV today
Vital Signs / Physical Exam
Vital Signs
Vital Signs
Temp Pulse Resp BP Pulse Ox
97.5 F 105 16 99/78 95
07/29/24 07:45 07/29/24 08:00 07/29/24 07:45 07/29/24 07:42 07/29/24 07:45
Physical Exam
Constitutional: No Acute Distress
Cardiovascular: Regular Rate and S1/S2; Negative Murmur or Rub
Pulmonary: Clear and Symmetric; Negative Wheezes or Rales
Gastrointestinal: Soft, Non Tender, Non Distended and Normal Bowel Sounds
Skin: Warm and Dry; Negative Rash or Jaundice
Objective Data
Lab Data
Lab Results
07/29/24 05:14
07/29/24 05:14
PT 20.8 Sec (11.4-14.6) H 07/29/24 05:14
INR 1.77 07/29/24 05:14
APTT 186.9 Sec (23.4-35.0) H* 07/29/24 05:14
Estimated Creat Clear 63 ml/min 07/29/24 05:14
Total Bilirubin 1.1 mg/dl (0.2-1.3) 07/28/24 02:37
GGT 69 U/L (15-73) 07/23/24 10:09
AST 38 U/L (17-59) 07/28/24 02:37
ALT 39 U/L (0-50) 07/28/24 02:37
Alkaline Phosphatase 89 U/L (38-126) 07/28/24 02:37
Most recent labs reviewed.
Micro Results:
07/23/24 09:14 Body Fluid Culture - Final
Pleural Fluid Gram negative bacilli
Gram Stain - Final
--- NOTE | 2024-07-29 10:28 | W.PN.CARDCBS ---
Addendum entered and electronically signed by Margaret Chavarria DO 07/29/24 15:12:
I saw and examined the patient.
The Wind Turbine Machinist's note was reviewed and I agree with the note.
Comment: Patient seen and examined prior to planned FABBY/cardioversion. Overall he is feeling well with improved shortness of breath. No chest pain or pressure. Reviewed FABBY/cardiogram procedure in detail and answered all questions. Consent
signed by patient and his daughter Leann
General: No acute distress, AAOX3
Heart: Regular, tachycardic. Positive S1-S2. No murmurs or rub
Lungs: Bronchovesicular breath sounds decreased with fine crackles bilaterally
Abd: Positive BS, NT/ND, neg rebound/rigidity/guarding
Ext: +1 edema
Neuro: nonfocal
Plan:
-Patient presents with SOB and LE edema. He has new HFrEF in the setting of rapid atrial flutter with history in the past of possible tachycardia induced cardiomyopathy and waxing and waning ejection fraction.
Improved volume status With 24 pound weight loss this admission; s/p thoracentesis 07/23/24 1200cc
Transition to oral Lasix 40 mg twice daily 07/28/2024
I's/O's, daily weights
GDMT-continue Toprol-XL 100 mg daily, spironolactone 12.5 mg daily, Entresto 24/26 mg twice daily, Farxiga 10 mg daily
Follow electrolytes: Keep K greater than 4, mag greater than 2
Wean supplemental oxygen as able
Per patient and chart, there was previous discussion of cardiac catheterization however prior decision was for consideration of outpatient ischemic evaluation with plan for FABBY cardioversion as an inpatient
History of atrial fibrillation currently in rapid atrial flutter s/p FABBY/CV today to SR
Continue amiodarone and Toprol XL
FABBY without left atrial appendage thrombus. Cardioversion successful with the 150 J x 1 to sinus rhythm.
EKG post cardioversion sinus rhythm with PACs and incomplete left bundle branch block. Nonspecific T wave abnormality. QTc 484 ms
-Last ischemic assessment was cardiac catheterization in 2014 which was negative for obstructive coronary disease.
trop peaked at 0.099 and downtrending. no CP.
-History of thrombocytopenia follow closely on anticoagulant.
-History of ICD in the past removed for inappropriate shocks
He is limited DNR.
Discharge planning per primary; likely tomorrow
Outpatient cardiac follow-up to be arranged
Original Note:
Today's Communication / Plan
-
FABBY/CV today
INR 1.77, Heparin gtt renewed and ordered warfarin 4 mg NOW plus INR in the AM
Lasix 40 mg PO BID is new this admission
Outpatient ischemic eval
52 min in coordination of care and face to face
Impression / Plan
-
PCP: Dr. Garay
Primary Manager Metal: Dr. Bella
Assessment:
Presentation with SOB, LE edema 07/22/24
Acute hypoxic respiratory failure, currently on high flow O2
Acute on chronic HFrEF
Recurrent CM EF 25% by echo 07/23/24
History of nonischemic cardiomyopathy, suspected tachycardia induced, EF 10% by echo 2010 and improved to 55-60% by echo 2017
B/L pleural effusions by CXR
Typical atrial flutter with RVR
Paroxysmal atrial fibrillation
Chronic Coumadin therapy, managed by [facility] Coumadin clinic using home monitor
Xarelto stopped in the past due to epistaxis
Subtherapeutic INR
Hyperkalemia
Elevated troponin
PVCs
Status post ICD placement in 2010, with subsequent 42 ICD shocks for rapid A-fib status post ICD system extraction in 2011
History of bioprosthetic AVR in 2014
Lupus
Chronic thrombocytopenia
Hypertension
Echo 2010: EF 10%, global hypokinesis, mild to moderate MR, severe with mild to moderate AR, moderate TR, moderate pulmonary hypertension
Echo 02/2015: EF 45 to 50%, moderate concentric LVH, mild MR, #27 bovine aortic with gradient 17/9 mmHg, mild TR PAP 30
ECHO 2018: EF 55 to 60%, no regional wall motion abnormalities, mild MR, #27 bovine prosthetic aortic valve replacement with peak/mean gradients of 12/6 mmHg, mild to moderate TR, PAP 25 to 30 mmHg
Echo 07/23/24 : Normal left ventricular size with global hypokinesis and septal dyskinesis, EF 25%. Bioprosthetic aortic valve with peak/mean gradients of 19 and 12 mmHg. No aortic regurgitation. Dilated and hypokinetic right ventricle with
dilated right atrium, moderate to severe tricuspid regurgitation and pulmonary artery systolic pressure of 51 mmHg
Plan:
-Patient admitted with acute HF and left pleural effusion 07/22/2024. Patient with known h/o paroxysmal atrial fibrillation and flutter was found to be in typical flutter with RVR requiring amiodarone gtt and Cardizem gtt on admission. INR was
subtherapeutic at 1.99 on admission and so heparin gtt was also started. Troponin peaked at 0.099. Patient has been diuresing and was given option of ischemic evaluation, last cardiac cath was in 2014 and was negative for obstructive CAD at that
time.
-Patient is scheduled for FABBY/CV 07/29/2024
-Patient previously had ICD in place, but it was removed for multiple inappropriate ICD shocks for rapid A-fib back in 2011
-Patient was loaded with amiodarone for 6.2 grams so far this admission as of 07/29/2024
-Patient is chronically on warfarin with INRs managed by [facility] INRs checked using home monitor and INR goal of 2-3. INR was subtherapeutic at 1.99 on admission and heparin gtt started.
-INR 1.77 on 07/29/2024. Patient was taking warfarin 1 mg daily prior to admission and was given 4 mg on Monday and 5 mg on Monday and INR is now trending up. Will give another warfarin 4 mg now, ordered by me
-Heparin gtt renewed by me 07/29/2024
-Patient weighed 145 lbs on standing scale 07/26/2024 and was down to 134 lbs on 07/28/2024 with Lasix 40 mg IV BID. Weight is up 1 lb overnight. Cont Lasix 40 mg PO BID. Patient was not taking a diuretic prior to admission.
-Patient was given option of inpatient ischemic evaluation in the form of cardiac cath, but preferred outpatient stress test.
-Pending results of stress test patient will need a repeat echo following 3 months of GDMT
-Outpatient dose of Toprol-XL 100 mg daily has been continued
-New to Entresto 24/26 mg twice daily, appreciate help of CM on checking cost
-New to Farxiga 10 mg daily, appreciate help of CM on checking cost
HPI: Patient is a 73-year-old male with past medical history of heart failure with reduced EF, nonischemic cardiomyopathy in setting of severe aortic stenosis/rapid afib and underwent ICD 2010. He had 42 ICD shocks for rapid atrial fibrillation and
subsequently underwent ICD system extraction in 2011. He underwent bioprosthetic AVR in 2014. He was diagnosed with lupus in 2016 and is chronically on Plaquenil. He has history of nosebleeds on Xarelto, and has been maintained on Coumadin
followed by [facility] Coumadin clinic. Patient presented to [facility] emergency room due to progressive shortness of breath and lower extremity edema noted over the last month. He also reports generalized fatigue. He is not on a water pill as
an outpatient. proBNP elevated at 8150 and chest x-ray with evidence of pleural effusions consistent with heart failure. On arrival is noted to be in atrial flutter with RVR. He states in past he has been able to tell when he is in afib, however
does not currently feel his typical symptoms. He was initially started on IV cardizem, however this was stopped due to hypotension and he was transitioned to IV amiodarone. Cardiology consulted for evaluation. Of note he has not gotten his
recommended echocardiogram the last 4 years as an outpatient.
Progress Note - Manager Metal
Subjective
Date of Service: July 29, 2024
He feels ready for FABBY/CV today
Objective
Labs:
07/29/24 05:14
07/29/24 05:14
Labs
Hgb 16.0 g/dL (13.0-18.0) 07/29/24 05:14
Hct 47.4 % (39.0-52.0) 07/29/24 05:14
Plt Count 69 10^3/uL (130-400) L 07/29/24 05:14
PT 20.8 Sec (11.4-14.6) H 07/29/24 05:14
INR 1.77 07/29/24 05:14
APTT 186.9 Sec (23.4-35.0) H* 07/29/24 05:14
Sodium 132 mmol/L (135-145) L 07/29/24 05:14
Potassium 4.0 mmol/L (3.5-5.1) 07/29/24 05:14
BUN 25 mg/dl (9-20) H 07/29/24 05:14
Creatinine 0.9 mg/dL (0.7-1.3) 07/29/24 05:14
Glucose 88 mg/dl (70-99) 07/29/24 05:14
Vital Signs and I&O:
Vital Signs
Temp Pulse Resp BP Pulse Ox
97.5 F 105 16 99/78 95
07/29/24 07:45 07/29/24 08:00 07/29/24 07:45 07/29/24 07:42 07/29/24 07:45
Vital Signs
Temp Pulse Resp BP Pulse Ox
97.5 F 105 16 99/78 95
07/29/24 07:45 07/29/24 08:00 07/29/24 07:45 07/29/24 07:42 07/29/24 07:45
Intake & Output
07/27/24 07/28/24 07/29/24 07/30/24
06:59 06:59 06:59 06:59
Intake Total 240 / 240 480 / 480 150 / 150
Output Total 2750 / 2750 3400 / 3400 1450 / 1450
Balance -2510 / -2510 -2920 / -2920 -1300 / -1300
Physical Exam
Physical Exam
General: NAD
HEENT: MMM
Heart: Afib on tele. Irreg irreg
Lungs: RA. No audible wheeze
Extremities: Trace edema B/L
Neuro: No focal or lateralizing weakness
[2024-07-29] MEDS: FARXIGA 10 MG PO (12:20)
[2024-07-29] MEDS: LASIX 40 MG PO ×2 (12:21→16:10)
[2024-07-29] MEDS: VITAMIN B1 100 MG PO ×2 (12:22→19:51)
[2024-07-29] MEDS: FOLVITE 1 MG PO (12:23)
[2024-07-29] MEDS: AUGMENTIN 875 MG/125 MG 1 TABLET PO ×2 (12:23→19:51)
[2024-07-29] MEDS: PACERONE 200 MG PO (12:23)
--- NOTE | 2024-07-29 12:30 | CM ---
Reviewed chart Met with Mr. Viveros and his daughter to review discharge plans. He states prior to admission he resides alone in a second floor condo woth fourteen steps to enter. He has a fist floor set-up once inside the home. He states prior to
admission he was independent with ambulation and adls. He states he does not have any DME in the home. He states he has a prescription plan. We reviewed [facility] and he is agreeable to [facility]. Telephone call to Delisa Dunlap to make
the referral. Sent referral. Will need to see his current functional level to see if he will have any skilled care needs. Medical work-up in progress. The discharge plan is to return home with [facility] when medically stable.
stable.
[2024-07-29] MEDS: COUMADIN 5 MG PO (12:31)
--- NOTE | 2024-07-29 12:44 | ITS.CL.CARDI ---
Motor Vehicle Assembly Supervisor - Cardioversion
Cardioversion
Procedure Report:
Date of Procedure: 07/29/24
Procedure: Cardioversion
Indication: Symptomatic atrial flutter
Performing Physician: Margaret Chavarria DO [facility]
Anticoagulation: Heparin drip to Coumadin. INR today 1.7.
Technique: The patient was brought to the holding area. Signed informed consent was obtained. A time out was called and performed. The patient was anesthetized by the anesthesia service. Transesophageal echocardiogram performed without
complications; no left atrial appendage thrombus. Anticoagulation status was reviewed and appropriate. R2 pads were placed anteriorly and posteriorly. A 150 J synchronized biphasic shock restored normal sinus rhythm without significant bradycardia.
There were no complications.
Conclusion: Uncomplicated cardioversion from atrial flutter to sinus rhythm.
Recommendation: Routine post cardioversion care. Continue watcher automat long goods anticoagulation.
[2024-07-29 12:58] LABS: APTT 89.2 Sec (23.4-35.0)
[2024-07-29] MEDS: ENTRESTO 24 MG/26 MG PO (15:46)
[2024-07-29] MEDS: ALDACTONE PO (15:46)
[2024-07-29] MEDS: TOPROL XL PO (15:46)
[2024-07-29] MEDS: HEPARIN 25000 UNITS/250 ML IV (16:10)
--- NOTE | 2024-07-29 18:19 | PTCARENOTE ---
pt continues to be sr on the monitor w/ PVCs, hr in the 80s, vss. pt offers no complaints at this time. pt educated in plan of care and pt verbalized understanding. heparin gtt running per protocol. see documentation. call vasquez within reach.
[2024-07-29] MEDS: ENTRESTO 24 MG/26 MG 1 TAB PO (19:51)
[2024-07-29 20:05] LABS: APTT 75.7 Sec (23.4-35.0)
--- NOTE | 2024-07-29 21:05 | PTCARENOTE ---
Received patient at change of shift. A&Ox3. Vitals stable. Heparin gtt running @ 1050 units/hr through left wrist. Discussed plan of care for evening. Patient verbalized understanding. Call vasquez within reach.
[2024-07-29] MEDS: MELATONIN 5 MG PO (21:59)
[2024-07-30] VITALS (7 sets, daily range): BP systolic 99–111; BP diastolic 59–85; BMI 19.4
[2024-07-30 05:01] LABS: Hematocrit 44.1 % (39.0-52.0); Hemoglobin 14.8 g/dL (13.0-18.0); Mean Corp Hgb Conc. 33.6 g/dL (33.0-37.0); Mean Corpuscular Hgb 30.5 pg (27.0-31.0); Mean Corpuscular Volume 90.7 fL (80.0-94.0); Platelet Count 59 10^3/uL (130-400); Red Blood Cell Count 4.86 10^6/uL (4.70-6.10); Red Cell Dist. Width 13.8 % (11.5-14.5); White Blood Cell Count 7.4 10^3/uL (4.8-10.8)
[2024-07-30 05:08] LABS: INR 1.89; PT 21.9 Sec (11.4-14.6)
[2024-07-30 05:09] LABS: APTT 61.5 Sec (23.4-35.0)
[2024-07-30 05:25] LABS: Blood Urea Nitrogen 26 mg/dl (9-20); Calcium 8.4 mg/dl (8.4-10.2); Carbon Dioxide 30 mmol/L (22-30); Chloride 101 mmol/L (98-107); Estimated Creatinine Clearance 63 ml/min; Glucose 79 mg/dl (70-99); Potassium 4.1 mmol/L (3.5-5.1); Sodium 131 mmol/L (135-145); eGFR > 60.00
--- NOTE | 2024-07-30 05:37 | PTCARENOTE ---
Pt's platelet count came back @ 59. Informed Linda Ibrahim per protocol.
--- NOTE | 2024-07-30 07:35 | W.PN.HOSP.TC ---
Today's Communication/Plan
-
INR 1.89, continue bridge with IV heparin gtt
coumadin 5mg ordered for this evening
F/U further Cardiology recs
Assessment / Plan
Assessment / Plan
pt is a 73 year old male with hx s/p AVR, HF, Afib/flutter, essential HTN presents to the ER with increased LE swelling and shortness of breath admitted for acute heart failure with left pleural effusion.
Acute Hypoxic Respiratory Failure secondary to acute HFrEF and Left Pleural Effusion
-required high flow earlier in admission
-TTE 07/23/24 with EF 25%; global hypokinesis
-s/p 1200 ml removed from thoracentesis 07/23/24, studies reveal transudative
-s/p IV lasix - transitioned to oral
-continue CHEMICAL PLANT MANAGER Metop XL
-stop CHEMICAL PLANT MANAGER Lisinopril, new start Entresto
-new start Spironolactone
Paroxysmal Atrial Fibrillation/Flutter with Rapid Ventricular Response--subtherapeutic INR
-s/p FABBY Cardioversion on 07/29; patient is in sinus with PVC's this morning
-cont heparin drip to coumadin
-amio, metoprolol
-INR 1.89 this morning
-will need weekly INR, now amio loaded
Concern for infected pleural effusion
-culture grew GNR
-studies not suggestive of empyema
-appreciate ID
-s/p IV Ceftriaxone; transitioned to Augmentin - complete through 08/02
hyponatremia/hypomagnesemia/hypokalemia--due to volume overload--diurese--replete as needed
Elevated Troponin, likely non-ischemic myocardial injury due to hypoxia, heart failure and tachycardia--peaked at 0.08--down to 0.069
Hyperkalemia--resolved--improved with diuretics
Essential Hypertension--Continue Metoprolol--Holding lisinopril and amlodipine
Hx Lupus
DVT proph-- Coumadin--follow INR--on IV heparin drip currently
Code Status-- Limited DNR - No defibrillation or chest compressions - OK for intubation only
in cardiology note, daughter asking about hospice--pt feels better with thoracentesis--will defer these discussions to cardiology
Anticipated Discharge: 24 - 48 hours
Subjective/Interval History
-
Date of Service: July 30, 2024
no new complaints
Objective Data
-
Labs:
Laboratory Results
07/29/24 07/30/24 07/30/24
19:43 04:26 12:45
WBC 7.4
Hgb 14.8
Hct 44.1
Plt Count 59 L
PT 21.9 H
INR 1.89
APTT 75.7 H 61.5 H Pending
Sodium 131 L
Potassium 4.1
Chloride 101
Carbon Dioxide 30
BUN 26 H
Creatinine 0.9
Glucose 79
Calcium 8.4
Vital Signs:
Vital Signs
Temp Pulse Resp BP Pulse Ox
98.2 F 74 16 107/68 96
07/30/24 06:52 07/30/24 04:15 07/30/24 06:52 07/30/24 04:15 07/30/24 06:52
I&O
07/29/24 07/30/24 07/31/24
06:59 06:59 06:59
Intake Total 150 / 150
Output Total 1450 / 1450 775 / 775
Balance -1300 / -1300 -775 / -775
Review of Systems
-
History Source: Patient
All other systems: Reviewed and negative
Physical Exam
-
General: Well Developed, Well Nourished and No Apparent Distress
HEENT: Normocephalic and Atraumatic
Respiratory: Clear to Auscultation and Decreased Breath Sounds
Cardiac: Irregular Rhythm
GI: Soft, Nontender, Nondistended and Normal Bowel Sounds
Musculoskeletal: No Clubbing, No Cyanosis and No Edema
Skin: Warm
Neuro: Awake
Data Reviewed
-
Diagnostic Radiology: Report Reviewed by me
Labs: Labs Reviewed by me
--- NOTE | 2024-07-30 08:44 | W.PN.CARDCBS ---
Addendum entered and electronically signed by Kevin Espinal MD 07/30/24 10:25:
I saw and examined the patient.
The Grinder Set Up Operator Universal's note was reviewed and I agree with the note.
Comment: Briefly, 73-year-old man past medical history of heart failure with severely reduced ejection fraction and atrial fibrillation/flutter on warfarin who presents in acute decompensated heart failure
With IV diuresis his weight is down significantly and he appears euvolemic on exam and renal function remains stable
Agree with discharging on Lasix 40 mg twice daily with plan to repeat labs in 1 week
In regards to his atrial flutter he underwent FABBY/direct-current cardioversion yesterday and has been maintaining sinus rhythm
New to amiodarone for rhythm control
Currently bridging to therapeutic INR, goal 2-3
Tentative plan to repeat INR this afternoon and if therapeutic I am okay with him being discharged today with outpatient labs and close cardiology follow-up
Rest per Bisi Kim
Addendum entered and electronically signed by Bisi Kim PA-C 07/30/24 10:02:
will give coumadin 5mg now instead of tonight and check INR at 2PM. if 2 or greater, perhaps patient can be discharged this afternoon on 1mg QPM (OP dose) as now on amio. he will need INR Wednesday 08/02. d/w nursing. d/w hospitalist via TT.
Original Note:
Today's Communication / Plan
-
po lasix 40mg BID
continue toprol, entresto, aldactone, farxiga, amio
continue IV heparin to coumadin. 5mg coumadin again tonight then likely back to preadmission dosing in AM
OP ischemic eval
90 day echo
CBC/BMP/proBNP in 1 week upon DC
will arrange OP cardiac follow up
DC planning
Impression / Plan
-
PCP: Dr. Garay
Primary Order Analyst: Dr. Bella
Assessment:
Presentation with SOB, LE edema 07/22/24
Acute hypoxic respiratory failure, currently on high flow O2
Acute on chronic HFrEF
Recurrent CM EF 25% by echo 07/23/24
History of nonischemic cardiomyopathy, suspected tachycardia induced, EF 10% by echo 2010 and improved to 55-60% by echo 2018
B/L pleural effusions by CXR
Typical atrial flutter with RVR
Paroxysmal atrial fibrillation
Chronic Coumadin therapy, managed by [facility] Coumadin clinic using home monitor
Xarelto stopped in the past due to epistaxis
Subtherapeutic INR
Hyperkalemia
Elevated troponin
PVCs
Status post ICD placement in 2010, with subsequent 42 ICD shocks for rapid A-fib status post ICD system extraction in 2011
History of bioprosthetic AVR in 2014
Lupus
Chronic thrombocytopenia
Hypertension
Echo 2010: EF 10%, global hypokinesis, mild to moderate MR, severe with mild to moderate AR, moderate TR, moderate pulmonary hypertension
Echo 02/2015: EF 45 to 50%, moderate concentric LVH, mild MR, #27 bovine aortic with gradient 17/9 mmHg, mild TR PAP 30
ECHO 2017: EF 55 to 60%, no regional wall motion abnormalities, mild MR, #27 bovine prosthetic aortic valve replacement with peak/mean gradients of 12/6 mmHg, mild to moderate TR, PAP 25 to 30 mmHg
Echo 07/23/24 : Normal left ventricular size with global hypokinesis and septal dyskinesis, EF 25%. Bioprosthetic aortic valve with peak/mean gradients of 19 and 12 mmHg. No aortic regurgitation. Dilated and hypokinetic right ventricle with
dilated right atrium, moderate to severe tricuspid regurgitation and pulmonary artery systolic pressure of 51 mmHg
Plan:
-he presented with SOB and was admitted with acute CHF as well as rapid typical atrial flutter.
-he has been diuresed ~24 pounds from admission if accurate. now on po lasix 40mg BID. he was not on diuretic prior to admission.
-he underwent successful FABBY/CV 07/29. he remains in SR with PACs at times in pattern of bigeminy. continue amiodarone 200mg daily, new this admission
-continue IV heparin to coumadin. INR 1.89 today. goal INR 2-3, managed by [facility] coumadin clinic. He was taking 1mg coumadin QPM prior to admission. will update coumadin clinic today
-follow plts, 59K on 07/30. follow closely
-of note, patient previously had ICD in place, but it was removed for multiple inappropriate ICD shocks for rapid A-fib back in 2011
-echo showed EF 25%. continue toprol, entresto, spironolactone, farxiga.
-trop peaked at 0.99. last cath was in 2014 with nonobstructive CAD. Patient was given option of inpatient ischemic evaluation in the form of cardiac cath, but preferred outpatient stress test.
-Pending results of stress test patient will need a repeat echo following 3 months of GDMT
-CBC/BMP/proBNP in 1 week upon DC
-will arrange OP cardiac follow up
HPI: Patient is a 73-year-old male with past medical history of heart failure with reduced EF, nonischemic cardiomyopathy in setting of severe aortic stenosis/rapid afib and underwent ICD 2010. He had 42 ICD shocks for rapid atrial fibrillation and
subsequently underwent ICD system extraction in 2011. He underwent bioprosthetic AVR in 2014. He was diagnosed with lupus in 2016 and is chronically on Plaquenil. He has history of nosebleeds on Xarelto, and has been maintained on Coumadin
followed by [facility] Coumadin clinic. Patient presented to [facility] emergency room due to progressive shortness of breath and lower extremity edema noted over the last month. He also reports generalized fatigue. He is not on a water pill as
an outpatient. proBNP elevated at 8150 and chest x-ray with evidence of pleural effusions consistent with heart failure. On arrival is noted to be in atrial flutter with RVR. He states in past he has been able to tell when he is in afib, however
does not currently feel his typical symptoms. He was initially started on IV cardizem, however this was stopped due to hypotension and he was transitioned to IV amiodarone. Cardiology consulted for evaluation. Of note he has not gotten his
recommended echocardiogram the last 4 years as an outpatient.
Progress Note - Order Analyst
Subjective
Date of Service: July 30, 2024
no present CP, SOB, palpitations.
Objective
Labs:
07/30/24 04:26
07/30/24 04:26
Labs
Hgb 14.8 g/dL (13.0-18.0) 07/30/24 04:26
Hct 44.1 % (39.0-52.0) 07/30/24 04:26
Plt Count 59 10^3/uL (130-400) L 07/30/24 04:26
PT 21.9 Sec (11.4-14.6) H 07/30/24 04:26
INR 1.89 07/30/24 04:26
APTT 61.5 Sec (23.4-35.0) H 07/30/24 04:26
Sodium 131 mmol/L (135-145) L 07/30/24 04:26
Potassium 4.1 mmol/L (3.5-5.1) 07/30/24 04:26
BUN 26 mg/dl (9-20) H 07/30/24 04:26
Creatinine 0.9 mg/dL (0.7-1.3) 07/30/24 04:26
Glucose 79 mg/dl (70-99) 07/30/24 04:26
Vital Signs and I&O:
Vital Signs
Temp Pulse Resp BP Pulse Ox
98.2 F 74 16 107/68 96
07/30/24 06:52 07/30/24 04:15 07/30/24 06:52 07/30/24 04:15 07/30/24 06:52
Vital Signs
Temp Pulse Resp BP Pulse Ox
98.2 F 74 16 107/68 96
07/30/24 06:52 07/30/24 04:15 07/30/24 06:52 07/30/24 04:15 07/30/24 06:52
Intake & Output
07/28/24 07/29/24 07/30/24 07/31/24
07:59 07:59 07:59 07:59
Intake Total 480 / 480 150 / 150
Output Total 3400 / 3400 1450 / 1450 775 / 775
Balance -2920 / -2920 -1300 / -1300 -775 / -775
Physical Exam
Physical Exam
GEN: No distress, awake, alert, oriented x3
HEENT: supple, anicteric, mmm, eomi
LUNGS: CTA B/L, no wheezes/rales
CV: Reg with ectopy, S1/S2, no murmur
ABD: soft, BS+, NT/ND
EXT: No cyanosis, clubbing, edema
NEURO: Gross non-focal
SKIN: Warm, pink, dry. No rash
[2024-07-30] MEDS: MAGNESIUM OXIDE 500 MG PO (09:58)
[2024-07-30] MEDS: KLOR-CON 20 MEQ PO ×2 (09:58→20:11)
[2024-07-30] MEDS: PACERONE 200 MG PO (09:58)
[2024-07-30] MEDS: FARXIGA 10 MG PO (09:58)
[2024-07-30] MEDS: ALDACTONE 12.5 MG PO (09:59)
[2024-07-30] MEDS: LASIX 40 MG PO ×2 (09:59→16:12)
[2024-07-30] MEDS: FOLVITE 1 MG PO (10:00)
[2024-07-30] MEDS: TOPROL XL 100 MG PO (10:00)
[2024-07-30] MEDS: ENTRESTO 24 MG/26 MG 1 TAB PO ×2 (10:00→22:06)
[2024-07-30] MEDS: AUGMENTIN 875 MG/125 MG 1 TABLET PO ×2 (10:00→20:10)
[2024-07-30] MEDS: VITAMIN B1 100 MG PO ×2 (10:00→20:09)
[2024-07-30] MEDS: COUMADIN 5 MG PO (10:04)
--- NOTE | 2024-07-30 10:37 | PTCARENOTE ---
received patient this am lying in bed, patient is getting discouraged wanting to go home, sat with patient and offered emotional support. monitor shows NSR, PVC's, VSS. IV heparin @ 1150cc/hr via left wrist. INR 1.89, gave Coumadin 5mg as
ordered.foam remains on left elbow, lung renteria shallow, diminished throughout, on RA 95%, trace edema bilaterally.
--- NOTE | 2024-07-30 11:37 | W.PN.ID1 ---
Date of Service
Date of Service: July 30, 2024
Today's Communication
- start augmentin to complete a 7 day total course 07/27-08/02
Assessment / Plan
Complicated L Pleural Effusion
Speech therapy evaluation
- gram negative found in the broth only - lab was unable to ID thus far and it has been sent to a reference lab
- pleural fluid not consistent with empyema
- primary etiology of the effusion remains likely CHF with minimal secondary infection
- aspiration precautions
- start augmentin to complete a 7 day total course 07/27-08/02
Chief Complaint
-: Other (complicated pleural effusion)
Subjective / Review of Systems
afebrile
bp stable
no complaints
Vital Signs / Physical Exam
Vital Signs
Vital Signs
Temp Pulse Resp BP Pulse Ox
98.4 F 70 16 103/70 97
07/30/24 11:25 07/30/24 10:00 07/30/24 11:25 07/30/24 10:00 07/30/24 11:25
Physical Exam
Constitutional: No Acute Distress
Cardiovascular: Regular Rate and S1/S2; Negative Murmur or Rub
Pulmonary: Clear and Symmetric; Negative Wheezes or Rales
Gastrointestinal: Soft, Non Tender, Non Distended and Normal Bowel Sounds
Skin: Warm and Dry; Negative Rash or Jaundice
Objective Data
Lab Data
Lab Results
07/30/24 04:26
07/30/24 04:26
PT 21.9 Sec (11.4-14.6) H 07/30/24 04:26
INR 1.89 07/30/24 04:26
APTT 61.5 Sec (23.4-35.0) H 07/30/24 04:26
Estimated Creat Clear 63 ml/min 07/30/24 04:26
Total Bilirubin 1.1 mg/dl (0.2-1.3) 07/28/24 02:37
GGT 69 U/L (15-73) 07/23/24 10:09
AST 38 U/L (17-59) 07/28/24 02:37
ALT 39 U/L (0-50) 07/28/24 02:37
Alkaline Phosphatase 89 U/L (38-126) 07/28/24 02:37
Most recent labs reviewed.
Micro Results:
07/23/24 09:14 Body Fluid Culture - Final
Pleural Fluid Gram negative bacilli
Gram Stain - Final
[2024-07-30] MEDS: HEPARIN 25000 UNITS/250 ML IV (14:23)
--- NOTE | 2024-07-30 14:29 | PTCARENOTE ---
right ant. INT reddened, removed, warm blanket placed.
[2024-07-30 14:58] LABS: INR 1.84; PT 21.4 Sec (11.4-14.6)
[2024-07-30 15:00] LABS: APTT 105.6 Sec (23.4-35.0)
--- NOTE | 2024-07-30 15:58 | CM ---
Reviewed chart. Met with Mr. Penaloza to review discharge plans. He states he is felling better. We reviewed [facility]. He is agreeable to [facility]. Prior to admission he resides alone in a second floor condo with
fourteen steps to enter. Prior to admission he was independent with ambulation and adls. He does not have any DME in the home. He has a prescription plan. Medical work-up in progress. The discharge plan is to return home with [facility] when medically stable.
[2024-07-30] MEDS: MELATONIN 5 MG PO (22:06)
[2024-07-30 22:21] LABS: APTT 125.4 Sec (23.4-35.0)
[2024-07-31 04:42] VITALS: BP 119/77
--- NOTE | 2024-07-31 04:44 | DOWNTIME ---
There was a [email or web address] Downtime on 07/31/2024 from 0100 to 08/01/2023 at 0420 . Downtime documentation of patient's care, including medication administrations, has been reconciled in the electronic record per guidelines. Refer to the
patient's paper chart under the miscellaneous tab to see printed paper medication records and downtime forms.
[2024-07-31 05:19] LABS: INR 2.08; PT 23.5 Sec (11.4-14.6)
[2024-07-31 05:21] LABS: APTT 100.6 Sec (23.4-35.0)
[2024-07-31 05:32] LABS: Hematocrit 45.9 % (39.0-52.0); Hemoglobin 15.2 g/dL (13.0-18.0); Mean Corp Hgb Conc. 33.5 g/dL (33.0-37.0); Mean Corpuscular Hgb 30.6 pg (27.0-31.0); Mean Corpuscular Volume 91.5 fL (80.0-94.0); Platelet Count 52 10^3/uL (130-400); Red Blood Cell Count 4.96 10^6/uL (4.70-6.10); Red Cell Dist. Width 13.9 % (11.5-14.5)
[2024-07-31 07:22] VITALS: BP 111/69
[2024-07-31] MEDS: MAGNESIUM OXIDE PO ×2 (09:00→09:07)
[2024-07-31] MEDS: FARXIGA 10 MG PO (09:00)
[2024-07-31] MEDS: ALDACTONE 12.5 MG PO (09:01)
[2024-07-31] MEDS: ENTRESTO 24 MG/26 MG 1 TAB PO (09:01)
--- NOTE | 2024-07-31 09:01 | W.PN.HOSP.TC ---
Today's Communication/Plan
-
OK for DC today
Assessment / Plan
Assessment / Plan
pt is a 73 year old male with hx s/p AVR, HF, Afib/flutter, essential HTN presents to the ER with increased LE swelling and shortness of breath admitted for acute heart failure with left pleural effusion.
Acute Hypoxic Respiratory Failure secondary to acute HFrEF and Left Pleural Effusion
-required high flow earlier in admission
-TTE 07/23/24 with EF 25%; global hypokinesis
-s/p 1200 ml removed from thoracentesis 07/23/24, studies reveal transudative
-s/p IV lasix - transitioned to oral
-continue CASKET LINER Metop XL
-stop CASKET LINER Lisinopril, new start Entresto
-new start Spironolactone
Paroxysmal Atrial Fibrillation/Flutter with Rapid Ventricular Response--subtherapeutic INR
-s/p FABBY Cardioversion on 07/29; patient is in sinus with PVC's this morning
-cont heparin drip to coumadin. INR > 2 this AM, Ok for DC
-amio, metoprolol
-appreciate cardiology recs for coumadin dosing - INR on Monday
Concern for infected pleural effusion
-culture grew GNR
-studies not suggestive of empyema
-appreciate ID
-s/p IV Ceftriaxone; transitioned to Augmentin - complete through 08/02
hyponatremia/hypomagnesemia/hypokalemia--due to volume overload--diurese--replete as needed
Elevated Troponin, likely non-ischemic myocardial injury due to hypoxia, heart failure and tachycardia--peaked at 0.08--down to 0.069
Hyperkalemia--resolved--improved with diuretics
Essential Hypertension--Continue Metoprolol--Holding lisinopril and amlodipine
Hx Lupus
DVT proph-- Coumadin--follow INR--on IV heparin drip currently
Code Status-- Limited DNR - No defibrillation or chest compressions - OK for intubation only
in cardiology note, daughter asking about hospice--pt feels better with thoracentesis--will defer these discussions to cardiology
Anticipated Discharge: Today
Subjective/Interval History
-
Date of Service: July 31, 2024
feeling well
wants to go home
Objective Data
-
Labs:
Laboratory Results
07/30/24 07/31/24 07/31/24
22:00 04:53 06:00
WBC 7.0
Hgb 15.2
Hct 45.9
Plt Count 52 L
PT 23.5 H Cancelled
INR 2.08 Cancelled
APTT 125.4 H 100.6 H
Vital Signs:
Vital Signs
Temp Pulse Resp BP Pulse Ox
97.5 F 65 20 111/69 95
07/31/24 07:22 07/31/24 08:00 07/31/24 07:22 07/31/24 07:22 07/31/24 07:22
I&O
07/30/24 07/31/24 08/01/24
06:59 06:59 06:59
Intake Total 618 / 618
Output Total 775 / 775 2575 / 2575
Balance -775 / -775 -1956 /
Review of Systems
-
History Source: Patient
All other systems: Reviewed and negative
Physical Exam
-
General: Well Developed, Well Nourished and No Apparent Distress
HEENT: Normocephalic and Atraumatic
Respiratory: Clear to Auscultation and Decreased Breath Sounds
Cardiac: Irregular Rhythm
GI: Soft, Nontender, Nondistended and Normal Bowel Sounds
Musculoskeletal: No Clubbing, No Cyanosis and No Edema
Skin: Warm
Neuro: Awake
Data Reviewed
-
Diagnostic Radiology: Report Reviewed by me
Labs: Labs Reviewed by me
[2024-07-31] MEDS: PACERONE 200 MG PO (09:02)
[2024-07-31] MEDS: AUGMENTIN 875 MG/125 MG 1 TABLET PO (09:02)
[2024-07-31] MEDS: TOPROL XL 100 MG PO (09:03)
[2024-07-31] MEDS: FOLVITE PO (09:03)
[2024-07-31] MEDS: KLOR-CON PO (09:03)
[2024-07-31] MEDS: VITAMIN B1 PO (09:04)
[2024-07-31] MEDS: LASIX 40 MG PO (09:06)
--- NOTE | 2024-07-31 09:20 | W.DS.TRANS ---
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
-
Discharge Instructions:
Sleep Apnea Risk Low
Discharge Diagnosis/Procedures heart failure with reduced ejection fraction and
infected pleural effusion
Diet Restrict fluids to 48 oz,2 Gram Sodium
Activity As tolerated
Driving Restrictions As prior to admission
Blood Work BMP in 1 week
Other Services VN
Specialty Instructions Weigh Daily
Instructions: *[facility] Heart Failure Instructions
Stand-Alone Forms:
Changes to Home Medications: Yes
Discharge Medications:
DC Medications w/original date entered in [employer]
metoprolol succinate 100 mg tablet,extended release 24 hr 100 mg PO DAILY Heart Disease/Condition 11/24/14
sacubitril 24 mg-valsartan 26 mg tablet (Entresto) 1 tab PO BID Heart Failure #60 tabs 07/24/24
amiodarone 200 mg tablet 200 mg PO DAILY #30 tabs 07/31/24
amoxicillin 875 mg-potassium clavulanate 125 mg tablet 1 tab PO Q12 #5 tabs 07/31/24
dapagliflozin propanediol 10 mg tablet 10 mg PO DAILY #30 tabs 07/31/24
furosemide 40 mg tablet 40 mg PO BID AT 0800,1600 #60 tabs 07/31/24
spironolactone 25 mg tablet 12.5 mg (1/2 x 25 mg) PO DAILY #30 tabs 07/31/24
thiamine mononitrate (vit B1) 100 mg tablet 100 mg PO DAILY #30 tabs 07/31/24
warfarin 4 mg tablet (Jantoven) 1 mg (1/4 x 4 mg) PO QPM Blood Clot Prevention/Tx #0 tabs 07/31/24
Home Medication Changes
STOP AMLODIPINE AND LISINOPRIL
You are newly started on Entresto (replaced Lisinopril)
You are newly started on Lasix 40mg twice a day, Spironolactone, Dapaglifozin
You are newly started on amiodarone to keep you in sinus rhythm
Please take coumadin 1mg QPM starting 07/31/24. You will have INR check on Wednesday 08/02 with results to [facility] coumadin clinic. Further instructions provided based on results of INR check 08/02.
Complete Augmentin course as prescribed, take through 08/02/24
Pending Results: No
--- NOTE | 2024-07-31 09:42 | W.PN.CARDCBS ---
Addendum entered and electronically signed by Sekou Bella MD 07/31/24 09:56:
I saw and examined the patient.
The Personal Care Worker's note was reviewed and I agree with the note.
Comment:
GEN: No distress, awake, Ox3
HEENT: supple, anicteric, mmm
LUNGS: CTA, no wheezes/rales
CV: Reg, S1/S2, 1/6 syst LSB, no gallop
ABD: soft, BS+, NT/ND
EXT: No edema
NEURO: Gross non-focal
SKIN: No rash
Plan:
Overall doing well. INR at goal. Okay for discharge today on Coumadin 1 mg daily. Goal INR 2-3.
Continue Toprol, Entresto, Aldactone, Farxiga, amiodarone, Lasix, and KCl.
Check repeat lab work in 1 week.
Discussed the importance of compliance at length with Deon.
Original Note:
Today's Communication / Plan
-
DC today
coumadin 1mg QPM. home INR check Wednesday 08/02 with results to [facility] coumadin clinic
po lasix 40mg BID with KCl 20mEq daily
continue toprol, entresto, aldactone, farxiga, amio
CBC/BMP/proBNP in 1 week
consider for OP stress testing
OP cardiac follow up arranged
Impression / Plan
-
PCP: Dr. Garay
Primary Cloth Finishing Range Back Tender: Dr. Bella
Assessment:
Presentation with SOB, LE edema 07/22/24
Acute hypoxic respiratory failure, currently on high flow O2
Acute on chronic HFrEF
Recurrent CM EF 25% by echo 07/23/24
History of nonischemic cardiomyopathy, suspected tachycardia induced, EF 10% by echo 2010 and improved to 55-60% by echo 2017
B/L pleural effusions by CXR
Typical atrial flutter with RVR
Paroxysmal atrial fibrillation
Chronic Coumadin therapy, managed by [facility] Coumadin clinic using home monitor
Xarelto stopped in the past due to epistaxis
Subtherapeutic INR
Hyperkalemia
Elevated troponin
PVCs
Status post ICD placement in 2010, with subsequent 42 ICD shocks for rapid A-fib status post ICD system extraction in 2011
History of bioprosthetic AVR in 2014
Lupus
Chronic thrombocytopenia
Hypertension
Echo 2010: EF 10%, global hypokinesis, mild to moderate MR, severe with mild to moderate AR, moderate TR, moderate pulmonary hypertension
Echo 02/2015: EF 45 to 50%, moderate concentric LVH, mild MR, #27 bovine aortic with gradient 17/9 mmHg, mild TR PAP 30
ECHO 2017: EF 55 to 60%, no regional wall motion abnormalities, mild MR, #27 bovine prosthetic aortic valve replacement with peak/mean gradients of 12/6 mmHg, mild to moderate TR, PAP 25 to 30 mmHg
Echo 07/23/24 : Normal left ventricular size with global hypokinesis and septal dyskinesis, EF 25%. Bioprosthetic aortic valve with peak/mean gradients of 19 and 12 mmHg. No aortic regurgitation. Dilated and hypokinetic right ventricle with
dilated right atrium, moderate to severe tricuspid regurgitation and pulmonary artery systolic pressure of 51 mmHg
Plan:
-he presented with SOB and was admitted with acute CHF as well as rapid typical atrial flutter.
-he has been diuresed ~24 pounds from admission if accurate. now on po lasix 40mg BID. he was not on diuretic prior to admission. dry weight this admission established at 134 pounds.
-he underwent successful FABBY/CV 07/29. he remains in SR with PACs/PVCs on review of tele overnight. continue amiodarone 200mg daily, new this admission
-INR 2.08 07/31. stop IV heparin. goal INR 2-3, managed by [facility] coumadin clinic. He was taking 1mg coumadin QPM prior to admission, to continue upon DC with INR check Wednesday 08/02 (he has home monitor).
-follow plts, 52K on 07/31. follow closely as OP
-of note is also being DC'd on augmentin for 1 week per ID recs
-of note, patient previously had ICD in place, but it was removed for multiple inappropriate ICD shocks for rapid A-fib back in 2011
-echo showed EF 25%. continue toprol, entresto, spironolactone, farxiga.
-trop peaked at 0.99. last cath was in 2014 with nonobstructive CAD. Patient was given option of inpatient ischemic evaluation in the form of cardiac cath, but preferred outpatient stress test.
-Pending results of stress test, patient will need a repeat echo following 3 months of GDMT
-CBC/BMP/proBNP in 1 week upon DC
-OP cardiac follow up arranged.
-ok for DC to home today
-d/w nursing
HPI: Patient is a 73-year-old male with past medical history of heart failure with reduced EF, nonischemic cardiomyopathy in setting of severe aortic stenosis/rapid afib and underwent ICD 2010. He had 42 ICD shocks for rapid atrial fibrillation and
subsequently underwent ICD system extraction in 2011. He underwent bioprosthetic AVR in 2014. He was diagnosed with lupus in 2016 and is chronically on Plaquenil. He has history of nosebleeds on Xarelto, and has been maintained on Coumadin
followed by [facility] Coumadin clinic. Patient presented to [facility] emergency room due to progressive shortness of breath and lower extremity edema noted over the last month. He also reports generalized fatigue. He is not on a water pill as
an outpatient. proBNP elevated at 8150 and chest x-ray with evidence of pleural effusions consistent with heart failure. On arrival is noted to be in atrial flutter with RVR. He states in past he has been able to tell when he is in afib, however
does not currently feel his typical symptoms. He was initially started on IV cardizem, however this was stopped due to hypotension and he was transitioned to IV amiodarone. Cardiology consulted for evaluation. Of note he has not gotten his
recommended echocardiogram the last 4 years as an outpatient.
Progress Note - Cloth Finishing Range Back Tender
Subjective
Date of Service: July 31, 2024
eager for DC. no issues overnight
Objective
Labs:
07/31/24 04:53
07/30/24 04:26
Labs
Hgb 15.2 g/dL (13.0-18.0) 07/31/24 04:53
Hct 45.9 % (39.0-52.0) 07/31/24 04:53
Plt Count 52 10^3/uL (130-400) L 07/31/24 04:53
PT Cancelled 07/31/24 06:00
INR Cancelled 07/31/24 06:00
APTT 100.6 Sec (23.4-35.0) H 07/31/24 04:53
Sodium 131 mmol/L (135-145) L 07/30/24 04:26
Potassium 4.1 mmol/L (3.5-5.1) 07/30/24 04:26
BUN 26 mg/dl (9-20) H 07/30/24 04:26
Creatinine 0.9 mg/dL (0.7-1.3) 07/30/24 04:26
Glucose 79 mg/dl (70-99) 07/30/24 04:26
Vital Signs and I&O:
Vital Signs
Temp Pulse Resp BP Pulse Ox
97.5 F 65 20 111/69 95
07/31/24 07:22 07/31/24 08:00 07/31/24 07:22 07/31/24 07:22 07/31/24 07:22
Vital Signs
Temp Pulse Resp BP Pulse Ox
97.5 F 65 20 111/69 95
07/31/24 07:22 07/31/24 08:00 07/31/24 07:22 07/31/24 07:22 07/31/24 07:22
Intake & Output
07/29/24 07/30/24 07/31/24 08/01/24
07:59 07:59 07:59 07:59
Intake Total 150 / 150 618 / 618
Output Total 1450 / 1450 775 / 775 2575 / 2575
Balance -1300 / -1300 -775 / -775 -1956 /
Physical Exam
Physical Exam
GEN: No distress, awake, alert, oriented x3
HEENT: supple, anicteric, mmm, eomi
LUNGS: CTA B/L, no wheezes/rales
CV: Reg, S1/S2, no murmur
ABD: soft, BS+, NT/ND
EXT: No cyanosis, clubbing, edema
NEURO: Gross non-focal
SKIN: Warm, pink, dry. No rash
--- NOTE | 2024-07-31 10:31 | CM ---
Reviewed chart. Met with Mr. Penaloza to review discharge plans. He states he is feeling well and maybe able to go home soon. We reviewed [facility]. He is agreeable to a home visit. He states his daughter will provide transportation
home. Prior to admission he resides alone in a second floor condo with fourteen steps to enter. He has a first floor set-up once in the home. Prior to admission he was independent with ambulation and adls. He does not have any DME in the home.
He has a prescription plan. Medical work-up in progress. The discharge plan is to return home with [facility] when medically stable.
[2024-07-31 11:59] VITALS: BP 105/71
--- NOTE | 2024-07-31 12:28 | VNURNOTE ---
Home Health Liaison spoke with patient to discuss [facility] nurse/therapy, visits, schedule and homebound status. Patient is agreeable and understands that visits at home will be 2-3 x per week to assess and teach medical management.
Patient is aware that [facility] will contact them for start of care in 1-2 days after discharge from .
[facility] referral accepted in [facility].
--- NOTE | 2024-07-31 13:02 | W.DCSUMMARY ---
Discharge Summary
Discharge Data
Date of Admission: 07/22/24
Date of Discharge: 07/31/24
-
Pending Results: No
Hospital Course
Discharging Physician : Dr. Bárbara Son
Disposition : Home
Primary care physician : Dr. Corwin Garay
Principal Discharge diagnosis : Heart Failure reduced Ejection Fraction, Atrial Flutter
Hospital Course :
Mr. Burciaga is a 73 year old male with hx s/p AVR, HFrEF, Afib/flutter, essential HTN presents to the ER with increased LE swelling and shortness of breath. Triage vitals significant for tachycardia and hypoxia requiring high flow. EKG with
atrial flutter with variable AV block. Cardiac BNP of 8000. Troponin of 0.099. Chest x-ray shows moderate left pleural effusion small right pleural effusion.
He was admitted with acute CHF exacerbation likely secondary to atrial flutter with RVR. He was admitted to medicine with Cardiology consulting.
Regarding atrial flutter, patient underwent cardioversion post diuresis (see below) on the morning of 07/29/24 and remains in sinus rhythm on discharge. He is started on amiodarone 200mg daily. His INR was subtherapeutic, he was bridged with a
heparin gtt until INR > 2. He is told to continue prior coumadin dosing 1mg qhs (amiodarone will affect INR). He will get repeat INR in 2 days and further direction of coumadin dosing.
Regarding heart failure, patient was diuresed during hospital stay. TTE with EF 25%; previously had improved to 55-60% in 2018. His weight is 61.2mg on day of discharge. He is discharge with new scripts for:
Lasix 40mg PO BID
Spironolactone 12.5mg POQD
Dapaglifozin 10mg PO QD
Entresto BID
He is told to stop Amlodipine and Lisinopril
He underwent left US guided thoracentesis on 07/23/24. Fluid studies transudative. Culture from enrichment broth only grew gram negative bacilli. ID was consulted. Pleural fluid not consistent with empyema, suspected minimal secondary infection
of fluid caused by CHF. He was started on antibiotics and discharged on Augmentin to complete a 7 day course.
Time spent on discharge was 35 minutes.
Important imaging findings :
CXR 07/22/24
IMPRESSION:
1. Moderate left pleural effusion and small right pleural effusion. Bibasilar airspace disease may also be present.
2. Findings suggestive of mild pulmonary vascular congestion.
TTE 07/23/24
CONCLUSIONS
1. Normal left ventricular size with global hypokinesis and septal dyskinesis,
EF 25%
2. Thickened mitral leaflets with mild mitral regurgitation and left atrial
dilatation. Mitral annular calcification.
3. Bioprosthetic aortic valve with peak/mean gradients of 19 and 12 mmHg. No
aortic regurgitation
4. Dilated and hypokinetic right ventricle with dilated right atrium, moderate
to severe tricuspid regurgitation and pulmonary artery systolic pressure of 51
mmHg
The ejection fraction was 55 to 60% in March 2018. Peak and mean aortic
valve gradients were 12 and 6 mmHg, and the pulmonary artery systolic pressure
was 25-30 mmHg in normal sinus rhythm. The right ventricle was not dilated.
Mitral regurgitation was mild.
Procedure findings :
Discharge Plan
-
Patient Disposition: Home (Routine Discharge)
Discharge Diagnosis/Procedures: heart failure with reduced ejection fraction and infected pleural effusion
Diet: 2 Gram Sodium and Restrict fluids to 48 oz
Activity: As tolerated
Driving Restrictions: As prior to admission
Blood Work: BMP in 1 week; INR on Monday08/02/24 - report results to coumadin clinic
Other Services: VN
Specialty Instructions: Weigh Daily- Call MD for wt gain/loss 3 lbs overnight/5 lbs in 1 week
Instructions: *DCA Heart Failure Instructions
Referrals:
[facility] [Outside]
Corwin Garay, [Family Provider] - in less than 1 week
Mima Scott PA-C [Specified Professional Personl] - 08/08/24 7:40 am (You have a cardiology follow-up appointment at the [place] office with Dr. Bella's physician program services assistant, Mima. Please call with questions)
Additional Discharge Medication Instructions: STOP AMLODIPINE AND LISINOPRIL
You are newly started on Entresto (replaced Lisinopril)
You are newly started on Lasix 40mg twice a day, Spironolactone, Dapaglifozin
You are newly started on amiodarone to keep you in sinus rhythm
Please take coumadin 1mg QPM starting 07/31/24. You will have INR check on Wednesday 08/02 with results to [facility] coumadin clinic. Further instructions provided based on results of INR check 08/02.
Complete Augmentin course as prescribed, take through 08/02/24
You will follow up with Cardiology on 08/08 to further go over all of your new heart medications
Prescriptions:
New
Entresto 24-26 mg tablet
1 tab PO BID Qty: 60 11RF
furosemide 40 mg Tablet
40 mg PO BID AT 0800,1600 Qty: 60 0RF
amiodarone 200 mg Tablet
200 mg PO DAILY Qty: 30 0RF
spironolactone 25 mg Tablet
12.5 mg PO DAILY Qty: 30 0RF
amoxicillin-pot clavulanate 875-125 mg Tablet
1 tab PO Q12 Qty: 5 0RF
thiamine mononitrate (vit B1) 100 mg Tablet
100 mg PO DAILY Qty: 30 0RF
dapagliflozin propanediol 10 mg Tablet
10 mg PO DAILY Qty: 30 0RF
potassium chloride 20 mEq tablet extended release
20 meq PO DAILY Qty: 30 1RF
Continued
metoprolol succinate 100 MG tablet extended release 24 hr
100 mg PO DAILY
Changed
warfarin [Jantoven] 4 MG tablet
1 mg PO QPM Qty: 0 0RF
Discontinued
lisinopril 5 MG tablet
5 mg PO DAILY
amlodipine [Norvasc] 5 mg Tablet
5 mg PO BID
lisinopril 10 mg Tablet
10 mg PO QPM
Discharge Orders:
Discharge Patient (As Directed); Ordered 07/31/24
Ordered By: Bárbara Son
Discharge Date and Time
Print Language: SETSWANA
--- NOTE | 2024-07-31 14:58 | PTCARENOTE ---
Pt received this am oob ad xi, room air sat 98%. Denies any pain or sob. Pt discharged to home with his daughter. Discharge instructions given and reviewed with good understanding and all questions answered.
--- NOTE | 2024-07-31 17:02 | W.PN.ID1 ---
Date of Service
Date of Service: July 31, 2024
Today's Communication
- c/w augmentin to complete a 7 day total course 07/27-08/02
Assessment / Plan
Complicated L Pleural Effusion
Speech therapy evaluation
- gram negative found in the broth only - lab was unable to ID thus far and it has been sent to a reference lab
- pleural fluid not consistent with empyema
- primary etiology of the effusion remains likely CHF with minimal secondary infection
- aspiration precautions
- c/w augmentin to complete a 7 day total course 07/27-08/02
Chief Complaint
-: Other (complicated pleural effusion)
Subjective / Review of Systems
afebrile
bp stable
tolerating current therapy
Vital Signs / Physical Exam
Vital Signs
Vital Signs
Temp Pulse Resp BP Pulse Ox
98.3 F 92 20 105/71 97
07/31/24 11:59 07/31/24 11:59 07/31/24 11:59 07/31/24 11:59 07/31/24 11:59
Physical Exam
Constitutional: No Acute Distress
Cardiovascular: Regular Rate and S1/S2; Negative Murmur or Rub
Pulmonary: Clear and Symmetric; Negative Wheezes or Rales
Gastrointestinal: Soft, Non Tender, Non Distended and Normal Bowel Sounds
Skin: Warm and Dry; Negative Rash or Jaundice
Objective Data
Lab Data
Lab Results
07/31/24 04:53
07/30/24 04:26
PT Cancelled 07/31/24 06:00
INR Cancelled 07/31/24 06:00
APTT 100.6 Sec (23.4-35.0) H 07/31/24 04:53
Estimated Creat Clear 63 ml/min 07/30/24 04:26
Total Bilirubin 1.1 mg/dl (0.2-1.3) 07/28/24 02:37
GGT 69 U/L (15-73) 07/23/24 10:09
AST 38 U/L (17-59) 07/28/24 02:37
ALT 39 U/L (0-50) 07/28/24 02:37
Alkaline Phosphatase 89 U/L (38-126) 07/28/24 02:37
Most recent labs reviewed.
Micro Results:
07/23/24 09:14 Body Fluid Culture - Final
Pleural Fluid Gram negative bacilli
Gram Stain - Final
--- NOTE | 2024-08-01 09:54 | W.HF.CON ---
Heart Failure
- LV Function
Left ventricular function study result: LV Ejection fraction </= 35%
Ejection Fraction Percentage: 25
- ARNI
Patient already on ARNI: Yes
- ACEI/ARB
Patient already on ACEI/ARB: No
Heart Failure ACEI/ARB Not Indicated: Patient ordered/on ARNI
- Beta Claudia
Patient already on Evidence Based Beta Claudia: Yes
- Mineralocorticord Receptor Antagonist
Patient already on MRA: Yes
- SGLT-2 Inhibitor
Patient already on SGLT-2 Inhibitor: Yes
- Afib Anticoagulation
Patient already on Anticoagulation for Afib: Yes
- NYHA CHF Classification
NYHA CHF Classification Level: Class III - Symptoms w/ min exertion, interferes w/ nml daily activity
- ACC/AHA Stage
ACC/AHA Stage: Stage C: Symptomatic Heart Failure
== END 2024-07-31 15:29 | disposition home health service (06) | DRG 291 ==
LOC: IVU 18:23
PROVIDERS: Emergency Medicine; Internal Medicine; Internal Medicine Cardiovascular Disease; Physician Assistant; Physician Assistant Medical; Radiology Vascular & Interventional Radiology; ADMITTING PHYSICIAN Hospitalist; ATTENDING PHYSICIAN Student in an Organized Health Care Education/Training Program; CONSULT PHYSICIAN Student in an Organized Health Care Education/Training Program; EMERGENCY PHYSICIAN Emergency Medicine; FAMILY PHYSICIAN Family Medicine; OTHER PHYSICIAN Internal Medicine Cardiovascular Disease
PROC: 0W9B3ZX Drainage of Left Pleural Cavity, Percutaneous Approach, Diagnostic (ICD-10-PCS; 2024-07-23)
PROC: B24BZZ4 Ultrasonography of Heart with Aorta, Transesophageal (ICD-10-PCS; 2024-07-29)
PROC: 5A2204Z Restoration of Cardiac Rhythm, Single (ICD-10-PCS; 2024-07-29)
DX: I11.0 Hypertensive heart disease with heart failure (principal); I50.23 Acute on chronic systolic (congestive) heart failure; J96.01 Acute respiratory failure with hypoxia; E87.1 Hypo-osmolality and hyponatremia; I48.3 Typical atrial flutter; J90 Pleural effusion, not elsewhere classified; I48.0 Paroxysmal atrial fibrillation; I50.22 Chronic systolic (congestive) heart failure; I5A Non-ischemic myocardial injury (non-traumatic); Z79.01 Long term (current) use of anticoagulants; E87.5 Hyperkalemia; Z66 Do not resuscitate; D69.6 Thrombocytopenia, unspecified; F17.290 Nicotine dependence, other tobacco product, uncomplicated; M32.9 Systemic lupus erythematosus, unspecified; Z51.5 Encounter for palliative care; I27.20 Pulmonary hypertension, unspecified; I08.3 Combined rheumatic disorders of mitral, aortic and tricuspid valves; I42.8 Other cardiomyopathies; I44.30 Unspecified atrioventricular block; I49.3 Ventricular premature depolarization; Z79.899 Other long term (current) drug therapy; Z82.49 Family history of ischemic heart disease and other diseases of the circulatory system; Z82.69 Family history of other diseases of the musculoskeletal system and connective tissue; Z91.199 Patient's noncompliance with other medical treatment and regimen due to unspecified reason; Z95.3 Presence of xenogenic heart valve
CPT/HCPCS: 88305; 32555; 71045; 80048; 80053; 80061; 80306; 81003; 81015; 82010; 82077; 82150; 82533; 82805; 82945; 82977; 83615; 83735; 83880; 83986; 84100; 84155; 84157; 84443; 84478; 84484; 85025; 85027; 85610; 85730; 86618; 87015; 87070; 87077; 87205; 88112; 89051; 92610; 92960; 93005; 93306; 93312; 93320; 93325; 96374; 96375; 97163; 97167; 97530; 97535; 99285

== ENCOUNTER → 2024-08-06 10:25 | Outpatient (REF) | payer MEDICARE, SELFPAY ==
[2024-08-06 13:03] LABS: Blood Urea Nitrogen 43 mg/dl (9-20); Calcium 9.2 mg/dl (8.4-10.2); Carbon Dioxide 32 mmol/L (22-30); Chloride 104 mmol/L (98-107); Glucose 93 mg/dl (70-99); Potassium 4.3 mmol/L (3.5-5.1); Sodium 142 mmol/L (135-145); eGFR 58.01
[2024-08-06 13:22] LABS: NT-proBNP 1150 pg/ml
[2024-08-06 13:37] LABS: % Basophils 2.1 % (0-2); % Eosinophils 0.5 % (0-6); % Immature Granulocytes 0.2 % (0-0.5); % Lymphocytes 31.3 % (20.5-51.1); % Monocytes 13.8 % (1.7-9.3); % Neutrophils 52.1 % (42.2-75.2); Absolute Basophils 0.1 10^3/uL (0-0.2); Absolute Lymphocytes 1.8 10^3/uL (1.2-3.4); Absolute Monocytes 0.8 10^3/uL (0.1-0.6); Hematocrit 51.5 % (39.0-52.0); Hemoglobin 16.9 g/dL (13.0-18.0); Mean Corp Hgb Conc. 32.8 g/dL (33.0-37.0); Mean Corpuscular Hgb 30.6 pg (27.0-31.0); Mean Corpuscular Volume 93.1 fL (80.0-94.0); Nucleated Red Blood Cells % 0 % (-); Platelet Count 100 10^3/uL (130-400); Red Blood Cell Count 5.53 10^6/uL (4.70-6.10); Red Cell Dist. Width 14.6 % (11.5-14.5); White Blood Cell Count 5.8 10^3/uL (4.8-10.8)
== END ==
LOC: HWLAB 10:25
PROVIDERS: ATTENDING PHYSICIAN Internal Medicine Cardiovascular Disease; FAMILY PHYSICIAN Family Medicine
DX: D69.6 Thrombocytopenia, unspecified (principal); I50.22 Chronic systolic (congestive) heart failure
CPT/HCPCS: 36415; 80048; 83880; 85025

== ENCOUNTER → 2024-08-16 11:05 | Outpatient (REF) | payer MEDICARE, SELFPAY ==
[2024-08-16 16:19] LABS: Blood Urea Nitrogen 49 mg/dl (9-20); Calcium 9.2 mg/dl (8.4-10.2); Carbon Dioxide 28 mmol/L (22-30); Chloride 103 mmol/L (98-107); Glucose 103 mg/dl (70-99); Potassium 4.6 mmol/L (3.5-5.1); Sodium 142 mmol/L (135-145); eGFR 58.01
== END ==
LOC: HWRAD 11:05
PROVIDERS: ATTENDING PHYSICIAN Student in an Organized Health Care Education/Training Program; FAMILY PHYSICIAN Family Medicine; REFERRING PHYSICIAN Physician Assistant
DX: J90 Pleural effusion, not elsewhere classified (principal); I50.20 Unspecified systolic (congestive) heart failure
CPT/HCPCS: 36415; 71046; 80048

== ENCOUNTER 2024-08-19 18:22 | Inpatient (IN) | payer MEDICARE, SELFPAY ==
[2024-08-19] VITALS (14 sets, daily range): BP systolic 94–134; BP diastolic 63–82; BMI 19.6; BMI 17.8
--- NOTE | 2024-08-19 13:09 | ED.GENMED ---
History of Present Illness
General
Chief Complaint: Fall
Source: patient and spouse
Time Seen by Provider: 08/19/24 12:58
History of Present Illness
History of Present Illness:
73-year-old male presents to the emergency room complaining of right sided rib pain after suffering a syncopal episode this morning. Patient states he was in bed had to go to the bathroom. When he got up to go the bathroom he passed out. He does
not recall exactly what happened but next remembers waking up on the ground with right sided chest pain. Pain is worse with movement and inspiration. He denies abdominal pain. Patient does take Coumadin. Patient was just hospitalized here at
[place] for atrial fibrillation and congestive heart failure. He evidently had a ICD at 1 point which was removed because it had multiple erroneous defibrillations. While hospitalized patient was started on new medications and was aggressively
diuresed. Patient feels like he might be too dry.
Past History
Past History
ED Past Medical History: Arrthythmia (afib), CAD, HTN, Hypercholesterolemia, Valvular disease (as) and Other (lupus)
ED Past Surgical History: Other
Social History
Tobacco: Other (Cigars)
Alcohol: None
Drug: None and Other
Personal: Partner
Living: alone
Employment: Other
Family History
Family History: Other
Phy Exam
Physical Exam
Physical Exam:
General: Awake, Alert, Oriented X3. Appears a bit uncomfortable, chronically ill
Vitals: unremarkable
Head: Atraumatic
Eyes: Pupils equal, EOMI
Throat: Airway intact, no exudates, dry mucosa
Neck: Trachea midline
Thorax: Tenderness palpation over the lower right lateral thorax
Lungs: Clear and equal b/l
Heart: Regular rate, no murmurs
Abd: Soft, perhaps mild right upper quadrant discomfort to palpation, No pulsatile mass
Neuro: Nonfocal
Skin: Warm, dry, no rash
Extremities: pulses equal b/l, no edema
Course
Orders/Labs/Results
Orders:
Orders
08/19/24 12:50
Electrocardiogram (*1) Urgent
Reason for Study: Fatigue / Weakness
EKG- Treatment ONCE
08/19/24 12:52
Complete Blood Count/With Diff Urgent
PTT Urgent
Prothrombin Time Urgent
Comment: ADD ON
Troponin I Urgent
08/19/24 13:07
CT Chest/abd/pel W Iv Cont Urgent
Comment:
Reason For Exam: fall, right thorx pain, coumadin
08/19/24 14:02
Type+Screen Urgent
08/19/24 14:26
Add On- LAB Urgent
Tests Added?: pt/inr
08/19/24 14:48
Comprehensive Metabolic Panel Urgent
Creatine Phosphokinase Urgent
08/19/24 Dinner
Cholesterol Lowering
At Your Request: Full Participation
Cholesterol Lowering: Sodium, 2 Gram
08/19/24 16:47
Magnesium Urgent
Comment: ADD ON
Potassium Urgent
08/19/24 17:24
Sodium Zirconium Cyclosilicate [Lokelma] 5 gram PO NOW STA
08/19/24 17:51
Code Status As Directed
Resuscitation Status: Do not resuscitate
Reached after discussion with pt or family/Healthcare POA: Yes
CARDIOLOGY CONSULT Routine
Consulting Provider: Dagoberto Salinas
Was physician already notified: Yes
Reason for consult: hx of HFrEF (25%), presented w syncope
Bisacodyl [Dulcolax] 10 mg RECTAL [id number] PRN
Docusate W/Senna [Senokot-S] 1 tablet PO BIDPRN PRN
Polyethylene Glycol Powder [Miralax] 17 grams PO DAILYPRN PRN
Activity As Directed
Activity Level: With Assistance
DNR Bracelet Application ONCE
Vital Signs As Directed
Frequency: Per unit guidelines
DX Deep Vein Thrombosis Video Routine
08/19/24 18:00
0.9% Sodium Chloride 500 ml [Nss] 500 ml IV 100 mls/hr
Lidocaine [Lidocaine 4% Patch] 2 patch TOPICAL DAILY
Apply Lidocaine patch(s) to:: Posterior Right ribs
08/19/24 18:01
Cyclobenzaprine HCl [Flexeril] 5 mg PO Q8HPRN PRN
08/19/24 18:02
Admit/Transfer Patient As Directed
Co-Sign Provider:
Level of Care: Inpatient admission
Assign to:: Telemetry
Physician / Group: Hospitalist: Chandrika
Diagnosis: syncope
Reason for Telemetry: Syncope
Date to Stop Telemetry: 08/21/24
Time to Stop Telemetry: 11:00
Reason for Hospitalization: Syncope
Expected length of stay greater than two midnights?: Yes
ELOS- Estimated Length of Stay in days: 2
I certify the patient meets the requirements for IP care: Yes
PRN Pain Medication Management As Directed
May give lesser potent ordered pain med per pt: Yes
preference::
Protocol:: Medication orders for pain may be administered in a
manner that supports deferring to patient preference
when the pt is:
- Requesting an ordered lesser potent pain medication.
Least to most potent pain medications are defined
as: acetaminophen < NSAID < tramadol < opioids
(morphine, oxycodone, hydromorphone).
- Requesting a lesser dose of the same medication IF
ORDERED.
- Requesting a less intrusive route of administration
if both routes are prescribed by the provider (PO <
IV).
08/19/24 18:05
Acetaminophen [Tylenol] 1,000 mg PO TID
08/19/24 18:14
EKG [Electrocardiogram (*1)] Urgent
Reason for Study: Tachycardia
08/19/24 18:15
EKG- Treatment ONCE
08/19/24 20:19
Calcium 200mg(Ca. Carb. 500mg) [Tums Chewable Tablet] 200 mg PO BIDPRN PRN
Sacubitril 24/Valsartan 26 [Entresto 24 mg/26 mg] 1 tab PO BID
08/19/24 21:00
Warfarin [Coumadin] 2 mg PO QPM
08/20/24 00:00
Heparin 5,000 units SC Q8
08/20/24 07:23
Basic Metabolic Panel IN AM
Complete Blood Count/With Diff IN AM
08/20/24 08:00
Amiodarone [Pacerone] 200 mg PO DAILY
Metoprolol Xl [Toprol Xl] 100 mg PO DAILY
Thiamine HCl [Vitamin B1] 100 mg PO DAILY
08/20/24 20:00
Remove Patch [Remove Lidocaine Patch] See Dose Instructions REMOVE DAILY@1999
08/21/24 11:00
DC Protocol for Telemetry ONCE
Abnormal Lab Results
08/19/24 08/19/24 08/19/24
12:52 14:48 16:47
RDW 15.1 H %
(11.5-14.5)
Plt Count 63 L 10^3/uL
(130-400)
Absolute Monos (auto) 0.7 H 10^3/uL
(0.1-0.6)
Monocytes % 11.1 H %
(1.7-9.3)
PT 23.5 H Sec
(11.4-14.6)
Potassium 6.8 H* mmol/L 5.8 H mmol/L
(3.5-5.1) (3.5-5.1)
Chloride 108 H mmol/L
(98-107)
BUN 56 H mg/dl
(9-20)
Magnesium 2.4 H mg/dl
(1.6-2.3)
Alkaline Phosphatase 128 H U/L
(38-126)
Creatine Kinase 30 L U/L
(55-170)
08/19/24 12:52
08/19/24 16:47
Vital Signs
Initial and Last Documented VS:
Initial Vital Signs
Temp Pulse Resp BP Pulse Ox
98.3 F 78 15 131/78 94
08/19/24 12:41 08/19/24 12:41 08/19/24 12:41 08/19/24 12:41 08/19/24 12:41
Last Documented Vital Signs
Temp Pulse Resp BP Pulse Ox
97.7 F 63 18 128/74 96
08/20/24 14:47 08/20/24 14:47 08/20/24 14:47 08/20/24 14:47 08/20/24 14:47
MDM/Problems Addressed
Differential Diagnosis Includes:
From trauma: Fracture, pneumothorax, hemothorax, hepatic injury.
Syncope differential: Electrolyte abnormality, dehydration, ventricular dysrhythmia
MDM/Problems Addressed:
Patient presents to the emergency room after a syncopal episode injuring his right thorax. Labs show significant prerenal azotemia with a BUN of 56 and creatinine 1.3. Initial lab draw showed potassium of 6.8. Concerned that this could be
erroneously elevated due to hemolysis so a repeat potassium level was sent. No better it still elevated at 5.8. Given the patient's dehydration and elevated kidney function test certainly possible the patient may have true hyperkalemia
particularly given he is taking supplemental potassium. Will give a dose of Lokelma and encourage oral hydration. Apprehensive to give much IV fluid as it appears he has a very reduced EF and was just hospitalized for significant congestive heart
failure. I am concerned the patient syncope could be related to a ventricular dysrhythmia though dehydration certainly could be the cause. He has a very low EF which puts him at risk for ventricular arrhythmia. Patient will require
hospitalization for monitoring on secured entrance monitor, adjustment of medications and perhaps IV hydration
*Radiology
Radiology exam reviewed: radiology read reviewed
*Pulse Oximetry
Patient hypoxic: no
*EKG
Interpreted by ED Provider?: Yes
Heart Rate: 75
Rate: normal
Rhythm: sinus
[place]: normal axis
Interval: normal interval
QRS Pattern: normal QRS
Ischemia: no ischemia
*Chandelier Maker Interpretation
Rate: normal
Interpretation: normal
Heart Rate: 75
Rhythm: sinus
*Critical Care Note
Total Time (30-74mins, 75-104mins- exclusive of procedures): 38 min
comment:
Critical care statement: A total of 38 minutes of critical care time was provided for this patient. This includes management of unstable vital signs, evaluation of the patient at bedside, reviewing the patient�s pertinent medical records, discussion
with consultants, review of old EKGs and review of pertinent medical records. This time with separate from time utilized to perform the aforementioned documented procedures
Data Reviewed
Review of Other/Old Records Reveals: Records, Radiology Studies and Progress Notes
Patient Management
Social determinants of health affecting care: Strong social support
ED Attending Note
-
Portions of this chart may have been created with voice recognition software.� Occasional wrong word or��sound alike� substitutions may have occurred due to the inherent limitations of voice recognition software.
Discharge Plan
Departure
Patient Disposition: Admit
Date of Disposition: 08/19/24
Time of Disposition: 17:22
Admit to: Telemetry
Presentation/result/management discussed w/ accepting MD/DO: Hospitalist
Condition: Fair
Discharge Problem:
Syncope, Fracture, ribs, Acute hyperkalemia
Interventions
Interventions:
*Risk Screen - Suicide Last Done: 08/19/24 12:41
*General Assessment Last Done: 08/19/24 12:41
*Neglect/Abuse Screening Last Done: 08/19/24 12:41
*ED- Fall Risk Assessment Last Done: 08/19/24 12:41
*ED COVID-19 Vaccine History Last Done: 08/19/24 12:41
*Nursing Disposition Last Done: 08/19/24 20:03
ED-Musculoskeletal Assessment Last Done: 08/19/24 12:57
ED- Neurological Assessment Last Done: 08/19/24 12:57
ED-Skin Assessment Last Done: 08/19/24 12:57
Discharge Date and Time
Discharge Date/Time: 08/19/24 20:04
[2024-08-19 13:14] LABS: APTT 32.3 Sec (23.4-35.0)
[2024-08-19 13:17] LABS: Hematocrit 51.9 % (39.0-52.0); Hemoglobin 17.6 g/dL (13.0-18.0); Mean Corp Hgb Conc. 33.9 g/dL (33.0-37.0); Mean Corpuscular Hgb 30.4 pg (27.0-31.0); Mean Corpuscular Volume 89.6 fL (80.0-94.0); Platelet Count 63 10^3/uL (130-400); Red Blood Cell Count 5.79 10^6/uL (4.70-6.10); Red Cell Dist. Width 15.1 % (11.5-14.5); White Blood Cell Count 6.6 10^3/uL (4.8-10.8)
[2024-08-19 13:28] LABS: Troponin I 0.019 ng/ml
[2024-08-19 13:45] LABS: % Basophils 0.9 % (0-2); % Eosinophils 0.2 % (0-6); % Immature Granulocytes 0.5 % (0-0.5); % Monocytes 11.1 % (1.7-9.3); % Neutrophils 65.3 % (42.2-75.2); Absolute Basophils 0.1 10^3/uL (0-0.2); Absolute Lymphocytes 1.4 10^3/uL (1.2-3.4); Absolute Monocytes 0.7 10^3/uL (0.1-0.6); Absolute Neutrophils 4.2 10^3/uL (1.4-6.5); Nucleated Red Blood Cells % 0 % (-)
[2024-08-19 14:57] LABS: INR 2.08; PT 23.5 Sec (11.4-14.6)
[2024-08-19 15:18] LABS: ALT (SGPT) 31 U/L (0-50); AST (SGOT) 39 U/L (17-59); Albumin 4.2 g/dl (3.5-5.0); Alkaline Phosphatase 128 U/L (38-126); Blood Urea Nitrogen 56 mg/dl (9-20); Calcium 9.7 mg/dl (8.4-10.2); Carbon Dioxide 25 mmol/L (22-30); Chloride 108 mmol/L (98-107); Glucose 89 mg/dl (70-99); Potassium 6.8 mmol/L (3.5-5.1); Sodium 140 mmol/L (135-145); Total Bilirubin 0.9 mg/dl (0.2-1.3); eGFR 58.01
[2024-08-19 15:26] LABS: Creatine Phosphokinase 30 U/L (55-170)
[2024-08-19 17:09] LABS: Potassium 5.8 mmol/L (3.5-5.1)
[2024-08-19] MEDS: LOKELMA 5 GRAM PO (18:07)
--- NOTE | 2024-08-19 18:07 | HPS.HSE ---
Family Physician
-
Family Physician: Corwin Garay
Chief Complaint
-
Syncope
History of Present Illness
Mr. Penaloza is a 73-year-old male with medical history of nonischemic cardiomyopathy, HFrEF (LVEF 25% on echo 07/23/2024), prior ICD (placed 2010, removed 2011 after 42 shocks for rapid A-fib), bioprosthetic aortic valve (2014), paroxysmal A-fib (on
warfarin), lupus, GERD, and thrombocytopenia who presented after an episode of syncope at his home. He reports having gotten up in the middle of the night to go use the bathroom and woke up on the floor. He had pain on his right posterior ribs.
He denies prodromal symptoms or recent headaches, blurry vision, chest pain, or shortness of breath. He was recently admitted here from 07/22-07/31 for CHF exacerbation secondary to A-fib with RVR. During that admission he was electrically
cardioverted on 07/29/2024 and was started on amiodarone. He was also aggressively diuresed during that admission and was discharged home on Lasix 40 mg p.o. twice daily. He reports adherence with his home medication regimen and says he has been
urinating excessively since that time. He reports intermittent gastric reflux symptoms recently which resolved with Tums.
In the ED here he has been normotensive, controlled heart rate around 70, and saturating appropriately on room air. His labs are significant for platelet count of 63,000 (close to his baseline), potassium 6.8 (he improved slightly to 5.8 on
repeat), and therapeutic INR of 2.0. EKG showed normal sinus rhythm with heart rate 75. He has been admitted for further evaluation and management of syncope
Medical History
Past Medical History
Past Medical History: Reports Arrhythmia (A-fib), CHF (HFrEF (LVEF 25%)) and GERD
Past Surgical History: Reports Bowel Resection (Colon), Cardiac (Bioprosthetic aortic valve replacement) and Orthopedic (Bilateral knee arthroscopy)
Social History
Tobacco: Smoker (Quit cigarettes more than 20 years ago, recently smoking cigars)
Alcohol: Daily ([place] )
Family History
Family History: Not pertinent
Allergies / Home Medications
Allergies reflects when Allergies were last updated in [facility].
Home Medications with original date entered in [facility]
Allergy/Medication List:
Allergies
Allergy/AdvReac Type Severity Reaction Status Date / Time
rivaroxaban [From Xarelto] Allergy excessive Verified 07/22/24 13:44
bleeding,
'funny
feeling'
Home Medications
metoprolol succinate 100 mg tablet,extended release 24 hr 100 mg PO DAILY Heart Disease/Condition 11/24/14
sacubitril 24 mg-valsartan 26 mg tablet (Entresto) 1 tab PO BID Heart Failure #60 tabs 07/24/24
amiodarone 200 mg tablet 200 mg PO DAILY #30 tabs 07/31/24
dapagliflozin propanediol 10 mg tablet 10 mg PO DAILY #30 tabs 07/31/24
potassium chloride 20 mEq tablet,extended release 20 meq PO DAILY #30 tabs 07/31/24
spironolactone 25 mg tablet 12.5 mg (1/2 x 25 mg) PO DAILY #30 tabs 07/31/24
thiamine mononitrate (vit B1) 100 mg tablet 100 mg PO DAILY #30 tabs 07/31/24
calcium carbonate (Tums) 200 mg PO BIDPRN PRN gerd 08/19/24
warfarin 4 mg tablet (Jantoven) 2 mg PO QPM Blood Clot Prevention/Tx 08/19/24
Review of Systems
-
History Source: Patient
A 12 point ROS was completed and negative except as noted: Yes
Musculoskeletal: Reports Joint Pain (Right posterior lower rib pain)
Physical Exam
Vital Signs
Vital Signs
Temp Pulse Resp BP Pulse Ox
98.3 F 76 18 121/76 94
08/19/24 12:41 08/19/24 17:02 04/07/25 17:02 08/19/24 17:02 08/19/24 17:02
Physical Exam
General: No Apparent Distress
Laboratory Results
-
08/19/24 12:52
08/19/24 16:47
Laboratory Results
PT 23.5 Sec (11.4-14.6) H 08/19/24 12:52
INR 2.08 08/19/24 12:52
APTT 32.3 Sec (23.4-35.0) 08/19/24 12:52
Total Bilirubin 0.9 mg/dl (0.2-1.3) 08/19/24 14:48
AST 39 U/L (17-59) 08/19/24 14:48
ALT 31 U/L (0-50) 08/19/24 14:48
Alkaline Phosphatase 128 U/L (38-126) H 08/19/24 14:48
Troponin I 0.019 ng/ml 08/19/24 12:52
Impression/Plan
-
General: No Apparent Distress, chronically ill-appearing, conversant
HEENT: NormoCephalic, Moist mucous membranes, Atraumatic
Respiratory: Clear and Non Labored Respirations
Cardiac: S1/S2 and Regular Rhythm; No Rub or Gallop
GI: Soft, Non Tender, Non Distended and Normal Bowel Sounds
Musculoskeletal: No Edema, no deformity
Skin: Warm and dry
: NO Watkins
Neuro: Awake, Alert, Nonfocal/grossly intact
Psych: Calm and Intact Judgment/Insight
Mr. Penaloza is a 73-year-old male with medical history of nonischemic cardiomyopathy, HFrEF (LVEF 25% on echo 07/23/2024), prior ICD (placed 2010, removed 2011 after 42 shocks for rapid A-fib), bioprosthetic aortic valve (2014), paroxysmal A-fib (on
warfarin), lupus, GERD, and thrombocytopenia who presented after an episode of syncope at his home. He reports having gotten up in the middle of the night to go use the bathroom and woke up on the floor. He had pain on his right posterior ribs.
He denies prodromal symptoms or recent headaches, blurry vision, chest pain, or shortness of breath. He was recently admitted here from 07/22-07/31 for CHF exacerbation secondary to A-fib with RVR. During that admission he was electrically
cardioverted on 07/29/2024 and was started on amiodarone. He was also aggressively diuresed during that admission and was discharged home on Lasix 40 mg p.o. twice daily. He reports adherence with his home medication regimen and says he has been
urinating excessively since that time. He reports intermittent gastric reflux symptoms recently which resolved with Tums.
In the ED here he has been normotensive, controlled heart rate around 70, and saturating appropriately on room air. His labs are significant for platelet count of 63,000 (close to his baseline), potassium 6.8 (he improved slightly to 5.8 on
repeat), and therapeutic INR of 2.0. EKG showed normal sinus rhythm with heart rate 75. He has been admitted for further evaluation and management of syncope
Syncope:
- Suspect due to hypovolemia in the setting of aggressive diuresis following recent admission for heart failure last month
- Holding diuresis for now
- Continue cardiac monitoring considering very low EF, patient does not want to consider another ICD placement because he was shocked multiple times by his ICD back in [id number]
-Less likely due to electrolyte abnormalities, initial potassium 6.8, no acute T wave abnormalities on EKG, IV fluids and Lokelma given, potassium improved to 5.8 on repeat
- Cardiology consult
Hyperkalemia:
- Give Lokelma and gentle IV fluids
- Holding all diuretics for now but will continue to hold spironolactone indefinitely
- Monitor on telemetry
HFrEF, chronic:
- Continue home metoprolol succinate 100 mg p.o. daily
- Afterload reduction with Entresto
- Hold Lasix, spironolactone, and Farxiga for now
A-fib with RVR:
- Started just after admission with a heart rate of 140
- Given 1 dose of Lopressor 5 mg IV
- Continue home metoprolol succinate 100 mg daily
- Anticoagulation with home warfarin, INR goal 2-3
- Cardiology following
Thrombocytopenia:
- Chronic, stable
CODE STATUS: DNR, patient confirms does not want chest compressions or intubation
[2024-08-19] MEDS: NSS 500 IV (18:38)
[2024-08-19] MEDS: LOPRESSOR 5 MG IV (18:40)
[2024-08-19] MEDS: LIDOCAINE 4% PATCH 2 PATCH TOPICAL (18:54)
--- NOTE | 2024-08-19 20:40 | PTCARENOTE ---
Pt received from ED via stretcher at 2020. Pt AAOX3, VSS, and pulled into bed. Pt complained of 9/10 R sided rib pain when moving. Pt receptive of room and call vasquez. Pt bed in lowest position and call vasquez within reach. Pt educated on importance of
call vasquez usage, pt relays understaging and cooperation. Will continue with current plan of care.
[2024-08-19] MEDS: TYLENOL 1000 MG PO (20:53)
[2024-08-19] MEDS: ENTRESTO 24 MG/26 MG 1 TAB PO (20:54)
--- NOTE | 2024-08-19 21:03 | W.PN.UPDATE ---
Update Note
Progress Note Update
RN addressed HR 125-140 Afib BP 115/82 afebrile, Metoprolol 2.5 IV x 1, patient asymptomatic, stated he took his amiodarone PO in AM.
HR down to 70 NSR at present.
[2024-08-19] MEDS: LOPRESSOR 2.5 MG IV (21:11)
[2024-08-19 21:27] LABS: Magnesium 2.4 mg/dl (1.6-2.3)
[2024-08-19 21:56] LABS: Blood Urea Nitrogen 49 mg/dl (9-20); Calcium 9.1 mg/dl (8.4-10.2); Carbon Dioxide 27 mmol/L (22-30); Chloride 105 mmol/L (98-107); Estimated Creatinine Clearance 44 ml/min; Glucose 108 mg/dl (70-99); Magnesium 2.3 mg/dl (1.6-2.3); Potassium 4.5 mmol/L (3.5-5.1); Sodium 137 mmol/L (135-145); eGFR > 60.00
[2024-08-19] MEDS: COUMADIN 2 MG PO (22:21)
--- NOTE | 2024-08-19 22:45 | PTCARENOTE ---
Pt sustaining HR in 125-135 Afib rhythm. RETAIL ASSOCIATE MANAGER BILINGUAL notified and ordered 2.5mg IV Lopressor. Lopressor administered - See JUL. Pt continued to be in 115-125s. RETAIL ASSOCIATE MANAGER BILINGUAL notified and ordered another dose of 2.5 IV Lopressor. Before this RN could administer
medication, pt converted to SR of HR in 70s.
[2024-08-20] MEDS: HEPARIN 5000 UNITS SC (00:38)
[2024-08-20] MEDS: TYLENOL 1000 MG PO ×2 (00:39→08:35)
[2024-08-20 03:03] VITALS: BP 126/74
[2024-08-20 06:00] VITALS: BMI 18.0
[2024-08-20 07:00] VITALS: BP 119/82
[2024-08-20 08:10] LABS: INR 2.16; PT 24.2 Sec (11.4-14.6)
[2024-08-20] MEDS: PACERONE 200 MG PO (08:34)
[2024-08-20] MEDS: VITAMIN B1 100 MG PO (08:34)
[2024-08-20] MEDS: ENTRESTO 24 MG/26 MG 1 TAB PO (08:35)
[2024-08-20] MEDS: TOPROL XL 100 MG PO (08:35)
[2024-08-20 08:36] LABS: Hematocrit 48.5 % (39.0-52.0); Hemoglobin 16.5 g/dL (13.0-18.0); Mean Corpuscular Hgb 30.1 pg (27.0-31.0); Mean Corpuscular Volume 88.3 fL (80.0-94.0); Platelet Count 53 10^3/uL (130-400); Red Blood Cell Count 5.49 10^6/uL (4.70-6.10); Red Cell Dist. Width 14.8 % (11.5-14.5); White Blood Cell Count 5.1 10^3/uL (4.8-10.8)
[2024-08-20] MEDS: LIDOCAINE 4% PATCH 2 PATCH TOPICAL (08:36)
[2024-08-20 08:51] LABS: Blood Urea Nitrogen 45 mg/dl (9-20); Calcium 9.1 mg/dl (8.4-10.2); Carbon Dioxide 24 mmol/L (22-30); Chloride 109 mmol/L (98-107); Estimated Creatinine Clearance 48 ml/min; Glucose 84 mg/dl (70-99); Potassium 4.3 mmol/L (3.5-5.1); Sodium 139 mmol/L (135-145); eGFR > 60.00
[2024-08-20 09:59] LABS: % Eosinophils 0.2 % (0-6); % Immature Granulocytes 0.4 % (0-0.5); % Lymphocytes 30.1 % (20.5-51.1); % Monocytes 14.3 % (1.7-9.3); Absolute Basophils 0.1 10^3/uL (0-0.2); Absolute Lymphocytes 1.5 10^3/uL (1.2-3.4); Absolute Monocytes 0.7 10^3/uL (0.1-0.6); Absolute Neutrophils 2.8 10^3/uL (1.4-6.5); Nucleated Red Blood Cells % 0 % (-)
--- NOTE | 2024-08-20 10:51 | CON.CAR ---
Addendum entered and electronically signed by Ariel Winchester MD 08/20/24 11:57:
I saw and examined the patient.
The MEDIA SUPERVISOR or PA's note was reviewed and I agree with the note.
Comment: General: Well developed, well nourished in NAD.
Neck: Supple, no JVD, HJR, carotids +2 B/L, no bruits bilaterally.
Heart: Non displaced PMI, RRR, no murmurs, No S3, S4, no rubs.
Lungs: Scattered rhonchi
Extremities: No clubbing, cyanosis or edema bilaterally.
Neuro: Grossly nonfocal, awake, alert and oriented x3.
Gualberto has a history of chronic systolic CHF, cardiomyopathy with ejection fraction of 25%, status post TAVR, ICD which was subsequently extracted in 2011, lupus on chronic Plaquenil, nosebleeds on Xarelto, chronic Coumadin. He was admitted in
July 2024 with CHF and atrial fibrillation EF of 25% felt to be tachycardia mediated. He underwent cardioversion in July 29, 2024. His Lasix was stopped due to weight loss. He stopped Lasix on his own several days ago. 2 AM he got up to go to
the bathroom and passed out. He is found to have a rib fracture. Potassium found to be 6.8. Cardiology was consulted for evaluation.
He is currently refusing to be on Lasix. He is claims his weight has not changed at home. Spironolactone and potassium has been stopped. Will continue Toprol, Entresto, Farxiga. 30s in sinus rhythm but had brief episode of rapid A-fib last
evening. Continue amiodarone. INR is therapeutic. Okay for discharge from cardiology viewpoint and discussed with primary service. Supportive care for rib fracture.
Original Note:
Consultation
Consultation Request
Date/Time Consultation Performed: 08/20/24
Requesting Provider: Dr. Cobos
Performing Provider: Bisi Kim PA-C for Dr. Winchester
Reason for Consultation: syncope
Medical History
-
Chief Complaint: syncope
History of Present Illness:
Patient is a 73-year-old male with past medical history of heart failure with reduced EF, nonischemic cardiomyopathy in setting of severe aortic stenosis/rapid afib and underwent ICD 2010. He had 42 ICD shocks for rapid atrial fibrillation and
subsequently underwent ICD system extraction in 2011. He underwent bioprosthetic AVR in 2014. He was diagnosed with lupus in 2016 and is chronically on Plaquenil. He has history of nosebleeds on Xarelto, and has been maintained on Coumadin
followed by [facility] Coumadin clinic. He was admitted to 07/22-07/31/24 for acute CHF, atrial fibrillation/flutter, recurrent cardiomyopathy with EF 25% (felt to be tachy mediated), s/p CV 07/29/24. He was discharged on regimen of Lasix 40 mg twice
daily with potassium 20 mill equivalents daily, Toprol, Entresto, Aldactone, Farxiga, amiodarone. He was then seen in our office 08/08/2024 and had continued weight loss from DC so his Lasix was decreased to 40 mg daily with repeat blood work. He
reports since then he has continued to lose weight. He stopped Lasix on his own several days ago. Then at 2 in the morning he got up to go to the bathroom and fell/passed out. He came to the emergency room and was admitted. Found to have rib fx.
Potassium was found to be 6.8 on arrival. He was given Lokelma with improvement. Cardiology consulted for evaluation
PMH:
Recurrent CM EF 25% by echo 07/23/24
History of nonischemic cardiomyopathy, suspected tachycardia induced, EF 10% by echo 2010 and improved to 55-60% by echo 2017B/L pleural effusions by CXR
Typical atrial flutter s/p CV 07/29/24
Paroxysmal atrial fibrillation
Chronic Coumadin therapy, managed by [facility] Coumadin clinic using home monitor
Xarelto stopped in the past due to epistaxis
PVCs
Status post ICD placement in 2010, with subsequent 42 ICD shocks for rapid A-fib status post ICD system extraction in 2011
History of bioprosthetic AVR in 2014
Lupus
Chronic thrombocytopenia
Hypertension
Past Medical History
Past Medical History: Other (in HPI)
Social History
Tobacco: Smoker (cigars)
Alcohol: Daily (1 bourbon daily)
Living: Alone
Employment: Retired
Family History
Family History: Other (LA in father, lupus in mother)
Allergies / Home Medications
Allergy/AdvReac Type Severity Reaction Status Date / Time
rivaroxaban [From Xarelto] Allergy excessive Verified 07/22/24 13:44
bleeding,
'funny
feeling'
�Medication �Instructions �Recorded �Confirmed �Type
metoprolol succinate 100 mg 100 mg PO DAILY Heart 11/24/14 08/19/24 History
tablet,extended release 24 hr Disease/Condition
sacubitril 24 mg-valsartan 26 mg 1 tab PO BID Heart Failure #60 tabs 07/24/24 08/19/24 Rx
tablet (Entresto)
amiodarone 200 mg tablet 200 mg PO DAILY #30 tabs 25 08/19/24 Rx
dapagliflozin propanediol 10 mg 10 mg PO DAILY #30 tabs 07/31/24 08/19/24 Rx
tablet
potassium chloride 20 mEq 20 meq PO DAILY #30 tabs 07/31/24 08/19/24 Rx
tablet,extended release
spironolactone 25 mg tablet 12.5 mg (1/2 x 25 mg) PO DAILY #30 07/31/24 08/19/24 Rx
tabs
thiamine mononitrate (vit B1) 100 100 mg PO DAILY #30 tabs 07/31/24 08/19/24 Rx
mg tablet
calcium carbonate (Tums) 200 mg PO BIDPRN PRN gerd 08/19/24 08/19/24 History
warfarin 4 mg tablet (Jantoven) 2 mg PO QPM Blood Clot 08/19/24 08/19/24 History
Prevention/Tx
Review of Systems
-
History Source: Patient
All other systems: Negative unless noted
Physical Exam
Vital Signs
Temp Pulse Resp BP Pulse Ox
97.5 F 73 18 119/82 91
08/20/24 07:00 08/20/24 08:34 08/20/24 07:00 08/20/24 08:34 08/20/24 07:00
Lab Results
08/20/24 07:23
08/20/24 07:23
Troponin I 0.019 ng/ml 08/19/24 12:52
Physical Exam
General: No Apparent Distress, Comfortable and Other (sitting in chair)
HEENT: Normocephalic, Anicteric and Moist Mucous Membranes
Respiratory: Clear and Non Labored Respirations
Cardiac: S1/S2 and Regular Rhythm
GI: Soft, Non Tender, Non Distended and Normal Bowel Sounds
Musculoskeletal: No Clubbing, No Cyanosis and No Edema
Skin: Warm and Dry
Neuro: AO x 3
Impression / Plan
-
Primary Gallery Assistant: Dr. Bella
Assessment:
Presentation with fall/syncope
Hyperkalemia
R posterior 9th rib fracture
Recurrent CM EF 25% by echo 07/23/24
History of nonischemic cardiomyopathy, suspected tachycardia induced, EF 10% by echo 2010 and improved to 55-60% by echo 2017B/L pleural effusions by CXR
Typical atrial flutter s/p CV 07/29/24
Paroxysmal atrial fibrillation, s/p spontaneous conversion to SR 08/19/24
Chronic Coumadin therapy, managed by [facility] Coumadin clinic using home monitor
Xarelto stopped in the past due to epistaxis
PVCs
Status post ICD placement in 2010, with subsequent 42 ICD shocks for rapid A-fib status post ICD system extraction in 2011
History of bioprosthetic AVR in 2014
Lupus
Chronic thrombocytopenia
Hypertension
Echo 2010: EF 10%, global hypokinesis, mild to moderate MR, severe with mild to moderate AR, moderate TR, moderate pulmonary hypertension
Echo 02/2015: EF 45 to 50%, moderate concentric LVH, mild MR, #27 bovine aortic with gradient 17/9 mmHg, mild TR PAP 30
ECHO 2018: EF 55 to 60%, no regional wall motion abnormalities, mild MR, #27 bovine prosthetic aortic valve replacement with peak/mean gradients of 12/6 mmHg, mild to moderate TR, PAP 25 to 30 mmHg
Echo 07/23/24 : Normal left ventricular size with global hypokinesis and septal dyskinesis, EF 25%. Bioprosthetic aortic valve with peak/mean gradients of 19 and 12 mmHg. No aortic regurgitation. Dilated and hypokinetic right ventricle with
dilated right atrium, moderate to severe tricuspid regurgitation and pulmonary artery systolic pressure of 51 mmHg
Plan:
- Patient with recent admission to [facility] for CHF, atrial flutter requiring cardioversion, cardiomyopathy felt to be tachycardia mediated now presents back with syncopal episode and hyperkalemia. He had stopped Lasix on his own late
last week. He remained on potassium 20 mill equivalents daily and spironolactone 12.5 mg daily.
- Potassium on arrival was 6.8. Status post Lokelma and normalized on 08/20
- He is refusing Lasix moving forward. Spironolactone and supplemental potassium have also been stopped. He will continue to follow his weights at home and call if weight gain is noted.
- By echo last admission EF was 25%. He has history of nonischemic cardiomyopathy in the past. Continue Toprol, Entresto, Farxiga
- BMP in 1 week upon discharge
- He was in sinus rhythm on arrival, had brief episode of rapid atrial fibrillation last evening, and spontaneously converted back to sinus. Continue amiodarone 200 mg daily
- Continue Coumadin. INR therapeutic. Patient with chronic thrombocytopenia, 53K on 08/20.
- He will need repeat echocardiogram at 90-day duy to reassess ejection fraction. He previously had ICD, however was extracted in 2011 due to inappropriate shocks for A-fib
- Blood pressure stable. Ambulate patient
- Supportive care of rib fracture per primary service
- Okay for discharge to home today. Outpatient cardiac follow-up arranged.
- Discussed with nursing. Discussed with hospitalist via [place] text
Data Reviewed
-
EKG: Tracing Personally Visualized and interpreted
CT Scan: Report Reviewed by me
Medical Tests (Nuc Med, Echo etc): Report Reviewed by me
Labs: Labs Reviewed by me
Old Records: Reviewed
[2024-08-20 11:00] VITALS: BP 137/75
--- NOTE | 2024-08-20 12:15 | W.DCSUMMARY ---
Addendum entered and electronically signed by Chance Cobos DO 08/22/24 12:46:
Additional diagnoses: The patient is underweight with BMI 18.0, suspect protein malnutrition
Original Note:
Discharge Summary
Discharge Data
Date of Admission: 08/19/24
Date of Discharge: 08/20/24
-
Pending Results: No
Hospital Course
Mr. Penaloza is a 73-year-old male with medical history of nonischemic cardiomyopathy, HFrEF (LVEF 25% on echo 07/23/2024), prior ICD (placed 2010, removed 2011 after 42 shocks for rapid A-fib), bioprosthetic aortic valve (2014), paroxysmal A-fib (on
warfarin), lupus, GERD, and thrombocytopenia who presented after an episode of syncope at his home. He reports having gotten up in the middle of the night to go use the bathroom and woke up on the floor. He had pain on his right posterior ribs.
He denies prodromal symptoms or recent headaches, blurry vision, chest pain, or shortness of breath. He was recently admitted here from 07/22-07/31 for CHF exacerbation secondary to A-fib with RVR. During that admission he was electrically
cardioverted on 07/29/2024 and was started on amiodarone. He was also aggressively diuresed during that admission and was discharged home on Lasix 40 mg p.o. twice daily. He reports adherence with his home medication regimen and says he has been
urinating excessively since that time. He reports intermittent gastric reflux symptoms recently which resolved with Tums.
In the ED here he was normotensive, controlled heart rate around 70, and saturating appropriately on room air. His labs were significant for platelet count of 63,000 (close to his baseline), potassium 6.8 (he improved slightly to 5.8 on repeat),
and therapeutic INR of 2.0. EKG showed normal sinus rhythm with heart rate 75. CT imaging of his chest showed mildly displaced right posterior ninth rib fracture and a possible subtle nondisplaced fracture of the right posterior eighth rib. He
was admitted for further evaluation and management of syncope.
His heart rate was briefly uncontrolled after admission but resolved after restarting his home metoprolol and amiodarone. He had no further syncopal or near syncopal episodes and no concerning events on telemetry. His rib pain was well-controlled
with lidocaine patches and Tylenol. His home Lasix and spironolactone were held. His potassium resolved within normal limits on repeat labs. He was evaluated by cardiology who recommended discontinuing spironolactone and potassium
supplementation. Patient does not want to continue taking Lasix either as he feels it has not helped him clinically and may have contributed to his syncopal episode. He will not be continued on Lasix at discharge. He will need repeat lab work in
1 week to monitor his potassium levels and kidney function. He should follow-up with his audio visual secretary and primary care physician after discharge. He has a cardiology appointment on 09/10/2024 at 8:40 AM. He will be continued on Farxiga, metoprolol
succinate, Entresto, amiodarone, and warfarin. At time of hospital discharge he was medically stable.
-Stop taking Lasix
-Stop taking spironolactone
-Stop taking oral potassium supplementation
General: No Apparent Distress, conversant
HEENT: NormoCephalic, Moist mucous membranes, Atraumatic
Respiratory: Clear and Non Labored Respirations
Cardiac: S1/S2 and Regular Rhythm; No Rub or Gallop
GI: Soft, Non Tender, Non Distended and Normal Bowel Sounds
Musculoskeletal: No Edema, no deformity, TTP right posterior lower ribs
Skin: Warm and dry
: NO Watkins
Neuro: Awake, Alert, Nonfocal/grossly intact
Psych: Calm and Intact Judgment/Insight
Discharge Plan
-
Patient Disposition: Home (Routine Discharge)
Discharge Diagnosis/Procedures: Syncope
Diet: 2 Gram Sodium
Activity: As tolerated
Blood Work: BMP in 1 week
Specialty Instructions: Weigh Daily- Call MD for wt gain/loss 3 lbs overnight/5 lbs in 1 week
Activity Restrictions/Additional Instructions:
Mr. Penaloza is a 73-year-old male with medical history of nonischemic cardiomyopathy, HFrEF (LVEF 25% on echo 07/23/2024), prior ICD (placed 2010, removed 2011 after 42 shocks for rapid A-fib), bioprosthetic aortic valve (2014), paroxysmal A-fib (on
warfarin), lupus, GERD, and thrombocytopenia who presented after an episode of syncope at his home. He reports having gotten up in the middle of the night to go use the bathroom and woke up on the floor. He had pain on his right posterior ribs.
He denies prodromal symptoms or recent headaches, blurry vision, chest pain, or shortness of breath. He was recently admitted here from 07/22-07/31 for CHF exacerbation secondary to A-fib with RVR. During that admission he was electrically
cardioverted on 07/29/2024 and was started on amiodarone. He was also aggressively diuresed during that admission and was discharged home on Lasix 40 mg p.o. twice daily. He reports adherence with his home medication regimen and says he has been
urinating excessively since that time. He reports intermittent gastric reflux symptoms recently which resolved with Tums.
In the ED here he was normotensive, controlled heart rate around 70, and saturating appropriately on room air. His labs were significant for platelet count of 63,000 (close to his baseline), potassium 6.8 (he improved slightly to 5.8 on repeat),
and therapeutic INR of 2.0. EKG showed normal sinus rhythm with heart rate 75. CT imaging of his chest showed mildly displaced right posterior ninth rib fracture and a possible subtle nondisplaced fracture of the right posterior eighth rib. He
was admitted for further evaluation and management of syncope.
His heart rate was briefly uncontrolled after admission but resolved after restarting his home metoprolol and amiodarone. He had no further syncopal or near syncopal episodes and no concerning events on telemetry. His rib pain was well-controlled
with lidocaine patches and Tylenol. His home Lasix and spironolactone were held. His potassium resolved within normal limits on repeat labs. He was evaluated by cardiology who recommended discontinuing spironolactone and potassium
supplementation. Patient does not want to continue taking Lasix either as he feels it has not helped him clinically and may have contributed to his syncopal episode. He will not be continued on Lasix at discharge. He will need repeat lab work in
1 week to monitor his potassium levels and kidney function. He should follow-up with his audio visual secretary and primary care physician after discharge. He has a cardiology appointment on 09/10/2024 at 8:40 AM. He will be continued on Farxiga, metoprolol
succinate, Entresto, amiodarone, and warfarin. At time of hospital discharge he was medically stable.
-Stop taking Lasix
-Stop taking spironolactone
-Stop taking oral potassium supplementation
Referrals:
Sekou Bella MD [Active] - 09/10/24 8:40 am (You have a cardiology follow-up appointment at the [place] office. Please call with questions)
Corwin Garay, [Family Provider] -
Prescriptions:
New
lidocaine 4 % Adhesive Patch,Medicated
2 patch topical DAILY Qty: 10 0RF
Continued
metoprolol succinate 100 MG tablet extended release 24 hr
100 mg PO DAILY
Entresto 24-26 mg tablet
1 tab PO BID Qty: 60 11RF
amiodarone 200 mg Tablet
200 mg PO DAILY Qty: 30 0RF
thiamine mononitrate (vit B1) 100 mg Tablet
100 mg PO DAILY Qty: 30 0RF
dapagliflozin propanediol 10 mg Tablet
10 mg PO DAILY Qty: 30 0RF
calcium carbonate [Tums] 200 mg calcium (500 mg) Tablet,Chewable
200 mg PO BIDPRN PRN (Reason: gerd)
warfarin [Jantoven] 4 MG tablet
2 mg PO QPM
Discontinued
spironolactone 25 mg Tablet
12.5 mg PO DAILY Qty: 30 0RF
potassium chloride 20 mEq tablet extended release
20 meq PO DAILY Qty: 30 1RF
Discharge Orders:
Discharge Patient (As Directed); Ordered 08/20/24
Ordered By: Chance Cobos
Discharge Date and Time
Print Language: PERSIAN
--- NOTE | 2024-08-20 12:17 | CM ---
sales consultant residential manager reviewed patient's chart and met with patient and patient states he lives alone in a 2 story home, patient is independent with adl's and ambulation, no dme, patient drives, patient to return to home at discharge per patient he is
current with [facility], [facility] liaison contacted.
PCP: Dr. Nickerson
Pharmacy [facility] in [place]
Plan; Home with [facility] when stable.
--- NOTE | 2024-08-20 13:28 | VNURNOTE ---
Home Health Liaison met with patient at bedside to discuss [facility] nurse/therapy, visits, schedule and homebound status. Patient is agreeable and understands that visits at home will be 2-3 x per week to assess and teach medical management. Patient
[facility] aware [facility] for [facility] care in 1-2 days after discharge from .
[facility] referral completed in [facility].
[2024-08-20 14:47] VITALS: BP 128/74
[2024-08-20 17:23] LABS: NT-proBNP 1460 pg/ml
--- NOTE | 2024-08-22 09:03 | PN.CDI ---
CDI
- -
CDI:
Physician Documentation Request
Admit Date: 08/19/24 18:22
Dear Doctor Chandrika,
Patient admitted with syncope.
Please review the following and provide your response in the progress notes.
Clinical Indicators:
Height: 5' 10'
Weight: 125 LB 6 oz
BMI: 18.0
Please provide an associated diagnosis related to the abnormal BMI, such as:
Underweight
Cachectic
Anorexia
Other
BMI < or = to 19
Underweight
Weight Loss
Cachectic
Anorexia
Use of terms such as suspected, likely, concern for, or probable (associated with a specific diagnosis that is being evaluated, monitored, or treated as if it exists) are acceptable and can be coded in the inpatient setting, when documented at the
time of discharge.
Thank you,
Laxmi MARI,RN,CCDS
CDI Specialist
Available via tiger text
Please use your independent medical judgment in providing your response.
== END 2024-08-20 15:08 | disposition home health service (06) | DRG 641 ==
LOC: 4 WEST ACU 18:22
PROVIDERS: Nurse Practitioner Gerontology; ADMITTING PHYSICIAN Internal Medicine; EMERGENCY PHYSICIAN Emergency Medicine; FAMILY PHYSICIAN Family Medicine; OTHER PHYSICIAN Internal Medicine Cardiovascular Disease
DX: E86.1 Hypovolemia (principal); S22.41XA Multiple fractures of ribs, right side, initial encounter for closed fracture; I50.22 Chronic systolic (congestive) heart failure; I42.8 Other cardiomyopathies; Z68.1 Body mass index [BMI] 19.9 or less, adult; E46 Unspecified protein-calorie malnutrition; R55 Syncope and collapse; I11.0 Hypertensive heart disease with heart failure; K21.9 Gastro-esophageal reflux disease without esophagitis; Z79.899 Other long term (current) drug therapy; D69.6 Thrombocytopenia, unspecified; Z95.3 Presence of xenogenic heart valve; F17.290 Nicotine dependence, other tobacco product, uncomplicated; Z82.69 Family history of other diseases of the musculoskeletal system and connective tissue; E87.5 Hyperkalemia; Z66 Do not resuscitate; I48.0 Paroxysmal atrial fibrillation; I49.3 Ventricular premature depolarization; E78.00 Pure hypercholesterolemia, unspecified; I25.10 Atherosclerotic heart disease of native coronary artery without angina pectoris; I35.0 Nonrheumatic aortic (valve) stenosis; Z79.01 Long term (current) use of anticoagulants; Z82.49 Family history of ischemic heart disease and other diseases of the circulatory system
CPT/HCPCS: 71260; 74177; 80048; 80053; 82550; 83735; 83880; 84132; 84484; 85025; 85610; 85730; 86850; 86900; 86901; 93005; 99285; Q9967

== ENCOUNTER → 2024-10-28 10:02 | Outpatient (REF) | payer MEDICARE, SELFPAY | LOC: HWRCS 10:02 | PROVIDERS: ATTENDING PHYSICIAN Physician Assistant; FAMILY PHYSICIAN Family Medicine | DX: I50.20 Unspecified systolic (congestive) heart failure (principal); I42.9 Cardiomyopathy, unspecified | CPT/HCPCS: 93306 ==

== ENCOUNTER → 2025-02-10 08:13 | Outpatient (REF) | payer MEDICARE, SELFPAY ==
[2025-02-10 11:04] LABS: Blood Urea Nitrogen 16 mg/dl (9-20)
== END ==
LOC: HWLAB 08:13
PROVIDERS: ATTENDING PHYSICIAN Student in an Organized Health Care Education/Training Program; FAMILY PHYSICIAN Family Medicine
DX: R31.9 Hematuria, unspecified (principal)
CPT/HCPCS: 82565; 84520

== ENCOUNTER → 2025-02-14 07:50 | Outpatient (REF) | payer MEDICARE, SELFPAY | LOC: RAD 07:50 | PROVIDERS: ATTENDING PHYSICIAN Student in an Organized Health Care Education/Training Program; FAMILY PHYSICIAN Family Medicine | DX: R31.29 Other microscopic hematuria (principal) | CPT/HCPCS: 74178; Q9967 ==

== ENCOUNTER → 2025-02-27 11:39 | Outpatient (REF) | payer MEDICARE, SELFPAY ==
[2025-02-27 12:27] LABS: Hematocrit 49.7 % (39.0-52.0); Hemoglobin 16.6 g/dL (13.0-18.0); Mean Corp Hgb Conc. 33.4 g/dL (33.0-37.0); Mean Corpuscular Volume 95.0 fL (80.0-94.0); Nucleated Red Blood Cells % 0 % (-); Platelet Count 68 10^3/uL (130-400); Red Cell Dist. Width 13.3 % (11.5-14.5)
[2025-02-28 20:36] LABS: Platelet Antibody, Direct IgG Negative (Negative); Platelet Antibody, Direct IgM Strong Pos (Negative)
[2025-03-01 01:59] LABS: Beta-2-Glycoprotein I Ab. IgA <10 SAU (<=20)
== END ==
LOC: REG 11:39
PROVIDERS: ATTENDING PHYSICIAN Internal Medicine Hematology & Oncology; FAMILY PHYSICIAN Family Medicine
DX: D69.6 Thrombocytopenia, unspecified (principal)
CPT/HCPCS: 36415; 85025; 85610; 85613; 85730; 86023; 86146; 86147

== ENCOUNTER → 2025-04-01 11:34 | Outpatient (REF) | payer MEDICARE, SELFPAY ==
[2025-04-01 15:39] LABS: ALT (SGPT) 29 U/L (0-50); AST (SGOT) 40 U/L (17-59); Albumin 3.9 g/dl (3.5-5.0); Alkaline Phosphatase 120 U/L (38-126); Blood Urea Nitrogen 18 mg/dl (9-20); Calcium 8.6 mg/dl (8.4-10.2); Carbon Dioxide 27 mmol/L (22-30); Chloride 107 mmol/L (98-107); Glucose 77 mg/dl (70-99); Potassium 3.6 mmol/L (3.5-5.1); Sodium 140 mmol/L (135-145); Total Protein 7.8 g/dl (6.3-8.2); eGFR > 60.00
[2025-04-01 15:41] LABS: Hematocrit 48.7 % (39.0-52.0); Hemoglobin 15.9 g/dL (13.0-18.0); Mean Corp Hgb Conc. 32.6 g/dL (33.0-37.0); Mean Corpuscular Volume 95.1 fL (80.0-94.0); Nucleated Red Blood Cells % 0 % (-); Red Cell Dist. Width 13.6 % (11.5-14.5)
[2025-04-01 16:00] LABS: Platelet Count 60 10^3/uL (130-400)
== END ==
LOC: HWLAB 11:34
PROVIDERS: ATTENDING PHYSICIAN Internal Medicine Cardiovascular Disease; FAMILY PHYSICIAN Family Medicine
DX: E78.2 Mixed hyperlipidemia (principal)
CPT/HCPCS: 36415; 80053; 85025